=== PATIENT | male | born 1940 | race Caucasian/White ===

== ENCOUNTER → 2018-04-27 13:56 | Outpatient (CLI) | payer MEDICARE, SELFPAY ==
--- NOTE | 2018-04-27 | DI.CT.S_ITS ---
PROCEDURE: CT SINUS SCREEN WO CON INDICATIONS: Anosmia CHRONIC SINUSITIS TECHNIQUE: Noncontrast 3.0 mm axial images acquired from the frontal sinuses to the mid-sella, with coronal and sagittal reformats. For radiation dose reduction, the following was used: automated exposure control, adjustment of mA and/or kV according to patient size. COMPARISON: None. FINDINGS: Image quality: Excellent. Maxillary Sinuses: No bony remodeling or destruction. Sinuses are clear. Ethmoid Air Cells: No bony remodeling or destruction. Sinuses are clear. Sphenoid Sinuses: No bony remodeling or destruction. Sinuses are clear. Frontal Sinuses: No bony remodeling or destruction. Sinuses are clear. Ostiomeatal Complexes: Ostiomeatal complexes are patent. No Yasemin cells. Miscellaneous: Visualized intra-orbital contents are normal. No parmjit bullosa or paradoxical turbinate curvature. No nasal septal deviation. IMPRESSION: No sign of abnormal mucosal thickening or air-fluid levels throughout the maxillary sinuses, the ethmoid air cells, frontal sinuses, and the sphenoid sinus. The mastoid air cells are well-visualized and appear normal. Dictated by: Miller Lizarraga M.D. on 04/27/2018 at 14:47 Approved by: Miller Lizarraga M.D. on 04/27/2018 at 14:48
== END ==
PROVIDERS: PCP Physician Assistant; Visit Provider Otolaryngology
DX: R43.0 Anosmia (principal); J32.9 Chronic sinusitis, unspecified
CPT/HCPCS: 70486

== ENCOUNTER → 2018-10-14 14:21 | Outpatient (CLI) | payer MEDICARE, SELFPAY ==
[2018-10-14 14:57] LABS: Add Manual Diff / Slide Review NO; Basophils Absolute Auto 100 /uL (0-100); Eosinophils Absolute Auto 100 /uL (0-450); Eosinophils Percent Auto 1.3 % (2-4); Hematocrit 43.4 % (41-53); Hemoglobin 14.5 g/dL (13.5-17.5); Lymphocytes Absolute Auto 1900 /uL (1100-4500); Lymphocytes Percent Auto 31.8 % (25-40); Mean Corpuscular HGB Conc 33.3 % (30-36); Mean Corpuscular Hemoglobin 32.5 PG (26-34); Mean Corpuscular Volume 97.5 fL (80-100); Monocytes Absolute Auto 500 /uL (0-900); Monocytes Percent Auto 7.9 % (3-14); Neutrophils Absolute Auto 3500 /uL (1500-7000); Platelet Count 203 X10^3/uL (150-400); Red Blood Cell Count 4.46 X10^6/uL (4.5-5.9); Red Cell Distribution Width 13.5 % (11.6-14.8); White Blood Cell Count 6.1 X10^3/uL (4.5-11.0)
[2018-10-14 15:08] LABS: Alanine Aminotransferase 34 IU/L (21-72); Albumin 4.3 g/dL (3.5-5.0); Albumin Globulin Ratio 1.5 (1.0-2.8); Alkaline Phosphatase 58 U/L (38-126); Aspartate Aminotransferase 19 IU/L (17-59); Bilirubin Total 0.5 mg/dL (0.2-1.3); Blood Urea Nitrogen 24 mg/dL (9-20); Calcium 9.6 mg/dL (8.4-10.2); Carbon Dioxide 22 mmol/L (22-32); Chloride 109 mmol/L (98-107); Cholesterol 154 mg/dL (140-199); Estimated Glomerular Filt Rate > 60.0 mL/min (>60); Globulin 2.9 g/dL (1.7-4.1); Glucose 82 mg/dL (80-110); HDL Cholesterol 36 mg/dL (40-60); HEMOLYSIS 21 (0-50); LDL Cholesterol Calculated 105 mg/dL (<100); Potassium 4.8 mmol/L (3.4-5.1); Sodium 140 mmol/L (137-145); Total Protein 7.2 g/dL (6.3-8.2); Triglycerides 63 mg/dL (35-150)
[2018-10-14 15:40] LABS: Thyroid Stimulating Hormone 0.15 uIU/mL (0.47-4.68)
== END ==
PROVIDERS: PCP Physician Assistant; Visit Provider Physician Assistant
DX: E03.9 Hypothyroidism, unspecified (principal); E78.5 Hyperlipidemia, unspecified
CPT/HCPCS: 36415; 80053; 80061; 84443; 85025

== ENCOUNTER → 2018-12-16 09:27 | Outpatient (CLI) | payer MEDICARE, SELFPAY ==
[2018-12-16 11:38] LABS: Thyroid Stimulating Hormone 2.86 uIU/mL (0.47-4.68)
== END ==
PROVIDERS: PCP Physician Assistant; Visit Provider Physician Assistant
DX: E03.9 Hypothyroidism, unspecified (principal)
CPT/HCPCS: 36415; 84443

== ENCOUNTER → 2019-01-17 11:44 | Outpatient (CLI) | payer MEDICARE, SELFPAY ==
--- NOTE | 2019-01-17 | DI.US.S_ITS ---
PROCEDURE: US ABDOMEN COMPLETE INDICATIONS: Elevated liver function tests. TECHNIQUE: Real-time scanning was performed of the abdominal and retroperitoneal organs, with image documentation. COMPARISON: None. FINDINGS: Liver: Liver is normal in size and homogeneous in echotexture. Gallbladder: The gallbladder appears normal. Biliary ducts: Intrahepatic bile ducts are non-dilated. Extrahepatic bile duct caliber measures 11.1 mm. Normal is 6-7 mm or less in diameter, or 10 mm or less post-cholecystectomy. Pancreas: Visualized portions of the pancreas are sonographically normal. Spleen: Spleen is normal in size and homogeneous in echotexture. Kidneys: Kidneys are normal in size and echotexture. Right kidney measures 10.6 cm long; left kidney measures 11.4 cm long. No hydronephrosis or nephrolithiasis. No solid masses. Aorta: Visualized aorta is normal in caliber at less than 3 cm. Iliacs: Proximal common iliac arteries are normal in caliber at less than 2.5 cm. IVC: Intrahepatic inferior vena cava is patent. Miscellaneous: No free abdominal fluid. IMPRESSION: Abnormal distention of the common bile duct at 11.1 mm, etiology uncertain. A calculus within the gallbladder lumen is not found and it is possible that a distal common bile duct calculus is present which generally would not be accurately detected by ultrasound. Followup by MR cholangiogram may be warranted to more accurately assess the distal common duct area. Dictated by: Miller Lizarraga M.D. on 01/17/2019 at 15:07 Approved by: Miller Lizarraga M.D. on 01/17/2019 at 15:11
[2019-01-17 12:38] LABS: Add Manual Diff / Slide Review NO; Basophils Absolute Auto 100 /uL (0-100); Basophils Percent Auto 0.8 % (0-2); Eosinophils Absolute Auto 100 /uL (0-450); Eosinophils Percent Auto 1.9 % (2-4); Hematocrit 41.5 % (41-53); Hemoglobin 14.1 g/dL (13.5-17.5); Lymphocytes Absolute Auto 1500 /uL (1100-4500); Lymphocytes Percent Auto 21.9 % (25-40); Mean Corpuscular HGB Conc 33.9 % (30-36); Mean Corpuscular Volume 97.5 fL (80-100); Monocytes Absolute Auto 500 /uL (0-900); Neutrophils Absolute Auto 4600 /uL (1500-7000); Neutrophils Percent Auto 67.4 % (50-75); Platelet Count 242 X10^3/uL (150-400); Red Blood Cell Count 4.26 X10^6/uL (4.5-5.9); White Blood Cell Count 6.9 X10^3/uL (4.5-11.0)
[2019-01-17 14:59] LABS: Acetaminophen < 10 ug/mL (10-30); Alanine Aminotransferase 565 IU/L (21-72); Albumin 4.2 g/dL (3.5-5.0); Albumin Globulin Ratio 1.5 (1.0-2.8); Alkaline Phosphatase 539 U/L (38-126); Amylase 48 U/L (30-110); Aspartate Aminotransferase 262 IU/L (17-59); BUN Creatinine Ratio 22.2 (6-22); Bilirubin Total 3.1 mg/dL (0.2-1.3); Blood Urea Nitrogen 20 mg/dL (9-20); Calcium 9.5 mg/dL (8.4-10.2); Carbon Dioxide 24 mmol/L (22-32); Chloride 104 mmol/L (98-107); Estimated Glomerular Filt Rate > 60.0 mL/min (>60); Gamma Glutamyl Transpeptidase 715 U/L (15-73); Globulin 2.8 g/dL (1.7-4.1); Glucose 101 mg/dL (80-110); HEMOLYSIS < 15 (0-50); Lipase 344 U/L (23-300); Potassium 4.6 mmol/L (3.4-5.1); Sodium 138 mmol/L (137-145)
[2019-01-17 15:57] LABS: Hep C Virus Ab w/Reflex Quant NEGATIVE s/c (NEGATIVE)
[2019-01-19 14:34] LABS: Hepatitis A Ab Total Nonreactive (Nonreactive)
== END ==
PROVIDERS: PCP Physician Assistant; Visit Provider Physician Assistant
DX: R94.5 Abnormal results of liver function studies (principal); R53.83 Other fatigue; R82.998 Other abnormal findings in urine; K83.8 Other specified diseases of biliary tract
CPT/HCPCS: 36415; 76700; 80053; 80329; 82150; 82977; 83690; 85025; 86803; 87522; G0480

== ENCOUNTER → 2019-01-20 14:04 | Outpatient (CLI) | payer MEDICARE, SELFPAY ==
--- NOTE | 2019-01-20 | DI.MRI.S_ITS ---
PROCEDURE: MR ABDOMEN WO CON INDICATIONS: ELEVATED LFT'S/DILATION OF COMMON BILE DUCTS TECHNIQUE: Coronal HASTE through the abdomen, axial 2-D FLASH in- and [id number], and breath-hold T2 FSE with fat saturation through the biliary system and pancreas. Oblique coronal and axial thin-slice HASTE, radial thick-slab HASTE centered on the extrahepatic bile ducts. Intravenous secretin: Not requested. COMPARISON: [facility], US, US ABDOMEN COMPLETE, 01/17/2019, 12:51. FINDINGS: Image quality: Excellent. Pancreas and biliary system: Intra- and extra-hepatic biliary ducts are dilated and the gallbladder is proportionately prominent in size as was seen during prior ultrasound scanning measuring up to 10.6 cm in length. The intrahepatic ducts are only mildly dilated and the common hepatic duct measures up to 1.4 cm. In contrast to the appearance during ultrasound scanning 01/17/19 the pancreas is definitely abnormal in morphology, but without adjacent soft tissue edema. Pancreatic duct is abnormal in caliber, measuring up to 9 mm in transverse dimension at the pancreatic neck, and multiple dilated side branches and cystic dilatation of side branches (versus cystic dilatation within the pancreatic parenchyma itself) is noted. This was not identifiable by the prior ultrasound scanning which implies content within the pancreatic duct in these areas of cystic dilatation of side branches or parenchyma containing echogenic material rather than simple fluid. Gallbladder as noted it is seen to be enlarged in overall volume but does not contain identifiable gallstones or evidence of mucosal inflammation or mass. The common duct dilatation extends to the ampulla where the pancreatic duct inserts without calculus or mass identified. Other solid organs: Liver is normal in size. Spleen is normal in size. No adrenal nodules. Both kidneys are normal in size, without hydronephrosis. Nodes and vessels: No retroperitoneal or mesenteric adenopathy by size criteria. Aorta and inferior vena cava are normal in size. Bowel and peritoneum: Unenhanced bowel loops are normal in caliber. No free fluid. Lung bases: No basal pleural effusions. Heart size is normal. Bones and soft tissues: No ventral hernias. Bone marrow is of normal overall signal. IMPRESSION: 1. Mild intrahepatic biliary distention. No hepatic solid mass lesion is found. 2. Prominent common hepatic duct and common bile duct distention, in this patient with gallbladder in place. The gallbladder is elongated as was previously seen by ultrasound measuring up to 10.6 cm in length. A gallstone or common duct stone is not found. 3. There is prominent abnormality involving the pancreas where the pancreatic parenchyma is largely atrophic and there is dilatation of the pancreatic duct and what appears to be side branches of the main pancreatic duct are also dilated with cystic distortion and pancreatic parenchymal cysts may also be superimposed. Of interest the cystic distortion discussed above is not identified by ultrasound scanning only several days ago which implies that the internal content producing this appearance by MR scanning is echogenic in nature. Intraductal papillary mucinous neoplasm may explain this constellation of findings. Gastroenterology consultation is recommended. Retrograde cholangiogram and pancreatic ductography likely will become necessary. 4. A pancreatic or biliary ductal mass or calculus is not seen. Dictated by: Miller Lizarraga M.D. on 01/21/2019 at 8:41 Approved by: Miller Lizarraga M.D. on 01/21/2019 at 9:11
== END ==
PROVIDERS: Family Provider Physician Assistant; PCP Physician Assistant; Visit Provider Physician Assistant
DX: R79.89 Other specified abnormal findings of blood chemistry (principal); K83.8 Other specified diseases of biliary tract; K86.89 Other specified diseases of pancreas
CPT/HCPCS: 74181

== ENCOUNTER → 2019-05-24 10:14 | Outpatient (CLI) | payer MEDICARE, SELFPAY ==
[2019-05-24 10:56] LABS: Add Manual Diff / Slide Review NO; Basophils Absolute Auto 100 /uL (0-100); Basophils Percent Auto 1.1 % (0-2); Eosinophils Absolute Auto 100 /uL (0-450); Eosinophils Percent Auto 1.6 % (2-4); Hematocrit 39.3 % (41-53); Hemoglobin 13.4 g/dL (13.5-17.5); Lymphocytes Absolute Auto 1900 /uL (1100-4500); Lymphocytes Percent Auto 34.8 % (25-40); Mean Corpuscular HGB Conc 34.2 % (30-36); Mean Corpuscular Hemoglobin 33.2 PG (26-34); Mean Corpuscular Volume 97.2 fL (80-100); Monocytes Absolute Auto 400 /uL (0-900); Neutrophils Absolute Auto 3000 /uL (1500-7000); Neutrophils Percent Auto 55.5 % (50-75); Platelet Count 246 X10^3/uL (150-400); Red Blood Cell Count 4.04 X10^6/uL (4.5-5.9); Red Cell Distribution Width 12.5 % (11.6-14.8); White Blood Cell Count 5.3 X10^3/uL (4.5-11.0)
[2019-05-24 11:06] LABS: Alanine Aminotransferase 20 IU/L (21-72); Albumin Globulin Ratio 1.3 (1.0-2.8); Alkaline Phosphatase 73 U/L (38-126); Aspartate Aminotransferase 19 IU/L (17-59); BUN Creatinine Ratio 24.4 (6-22); Bilirubin Total 0.6 mg/dL (0.2-1.3); Blood Urea Nitrogen 22 mg/dL (9-20); Calcium 9.5 mg/dL (8.4-10.2); Carbon Dioxide 28 mmol/L (22-32); Chloride 103 mmol/L (98-107); Estimated Glomerular Filt Rate > 60.0 mL/min (>60); Glucose 105 mg/dL (80-110); HEMOLYSIS < 15 (0-50); Potassium 4.6 mmol/L (3.4-5.1); Sodium 139 mmol/L (137-145)
[2019-05-24 11:31] LABS: TSH w/ Reflex to FT4 1.75 uIU/mL (0.47-4.68)
[2019-05-24 11:41] LABS: Vitamin D 25 Hydroxy (D3) 43.7 ng/mL (30.0-100.0)
[2019-05-24 12:07] LABS: Folate 14.3 ng/mL (2.76-20.0); Vitamin B12 650 pg/mL (239-931)
== END ==
PROVIDERS: PCP Physician Assistant; Visit Provider Physician Assistant
DX: N40.1 Benign prostatic hyperplasia with lower urinary tract symptoms (principal); E03.9 Hypothyroidism, unspecified; E78.2 Mixed hyperlipidemia; K83.8 Other specified diseases of biliary tract
CPT/HCPCS: 36415; 80053; 82306; 82607; 82746; 84443; 85025

== ENCOUNTER → 2019-05-24 10:32 | Outpatient (CLI) | payer MEDICARE, SELFPAY ==
--- NOTE | 2019-05-24 | DI.RAD.S_ITS ---
PROCEDURE: XR RIBS BI 3V INDICATIONS: ABNORMAL PROMINENCE OF RIB TECHNIQUE: 4 views of the bilateral ribs were acquired. COMPARISON: None. FINDINGS: Surgical changes and devices: A biliary stent is noted.. Bones and chest wall: No fractures or dislocations. No suspicious bony lesions. Overlying soft tissues appear unremarkable. Lungs and pleura: The visualized lung appears clear. No pleural effusions or pneumothorax are visible. IMPRESSION: No gross displaced rib fracture or discrete rib lesion is seen. Dictated by: Gurmeet Tapia M.D. on 05/24/2019 at 12:48 Approved by: Gurmeet Tapia M.D. on 05/24/2019 at 12:49
== END ==
PROVIDERS: PCP Physician Assistant; Visit Provider Physician Assistant
DX: Q76.6 Other congenital malformations of ribs (principal)
CPT/HCPCS: 71110

== ENCOUNTER → 2019-10-25 19:47 | Outpatient (ROUT) | payer MEDICARE, SELFPAY ==
[2019-10-25 19:57] LABS: Add Manual Diff / Slide Review NO; Basophils Absolute Auto 0 /uL (0-100); Basophils Percent Auto 0.9 % (0-2); Eosinophils Absolute Auto 100 /uL (0-450); Eosinophils Percent Auto 1.9 % (2-4); Hematocrit 39.9 % (41-53); Hemoglobin 13.6 g/dL (13.5-17.5); Lymphocytes Absolute Auto 1800 /uL (1100-4500); Lymphocytes Percent Auto 36.2 % (25-40); Mean Corpuscular HGB Conc 34.1 % (30-36); Mean Corpuscular Hemoglobin 33.3 PG (26-34); Mean Corpuscular Volume 97.7 fL (80-100); Monocytes Absolute Auto 400 /uL (0-900); Monocytes Percent Auto 7.6 % (3-14); Neutrophils Absolute Auto 2700 /uL (1500-7000); Neutrophils Percent Auto 53.4 % (50-75); Platelet Count 199 X10^3/uL (150-400); Red Blood Cell Count 4.08 X10^6/uL (4.5-5.9)
[2019-10-25 20:08] LABS: Alanine Aminotransferase 16 IU/L (<50); Albumin Globulin Ratio 1.3 (1.0-2.8); Alkaline Phosphatase 73 U/L (38-126); Aspartate Aminotransferase 19 IU/L (17-59); BUN Creatinine Ratio 18.9 (6-22); Bilirubin Total 0.6 mg/dL (0.2-1.3); Blood Urea Nitrogen 17 mg/dL (9-20); Calcium 9.5 mg/dL (8.4-10.2); Carbon Dioxide 29 mmol/L (22-32); Chloride 103 mmol/L (98-107); Estimated Glomerular Filt Rate > 60.0 mL/min (>60); Globulin 3.1 g/dL (1.7-4.1); Glucose 105 mg/dL (80-110); HEMOLYSIS < 15 (0-50); Potassium 4.2 mmol/L (3.4-5.1); Sodium 139 mmol/L (137-145); Total Protein 7.1 g/dL (6.3-8.2)
[2019-10-25 20:21] LABS: Vitamin D 25 Hydroxy (D3) 47.5 ng/mL (30.0-100.0)
[2019-10-25 20:36] LABS: TSH w/ Reflex to FT4 2.89 uIU/mL (0.47-4.68)
== END ==
PROVIDERS: Visit Provider Physician Assistant
DX: E03.9 Hypothyroidism, unspecified (principal); E78.2 Mixed hyperlipidemia; E55.9 Vitamin D deficiency, unspecified
CPT/HCPCS: 80053; 82306; 84443; 85025

== ENCOUNTER → 2020-06-12 10:20 | Outpatient (CLI) | payer MEDICARE, SELFPAY ==
[2020-06-12 11:36] LABS: Add Manual Diff / Slide Review NO; Basophils Absolute Auto 0 /uL (0-100); Basophils Percent Auto 0.4 % (0-2); Eosinophils Absolute Auto 100 /uL (0-450); Eosinophils Percent Auto 2.8 % (2-4); Hematocrit 37.7 % (41-53); Hemoglobin 12.8 g/dL (13.5-17.5); Lymphocytes Absolute Auto 1200 /uL (1100-4500); Lymphocytes Percent Auto 29.8 % (25-40); Mean Corpuscular HGB Conc 33.8 % (30-36); Mean Corpuscular Hemoglobin 33.5 PG (26-34); Monocytes Absolute Auto 500 /uL (0-900); Monocytes Percent Auto 12.2 % (3-14); Neutrophils Absolute Auto 2200 /uL (1500-7000); Neutrophils Percent Auto 54.8 % (50-75); Platelet Count 241 X10^3/uL (150-400); Red Blood Cell Count 3.81 X10^6/uL (4.5-5.9); Red Cell Distribution Width 13.1 % (11.6-14.8); White Blood Cell Count 4.1 X10^3/uL (4.5-11.0)
[2020-06-12 12:03] LABS: Alanine Aminotransferase 379 IU/L (<50); Albumin 3.5 g/dL (3.5-5.0); Albumin Globulin Ratio 1.1 (1.0-2.8); Alkaline Phosphatase 495 U/L (38-126); Aspartate Aminotransferase 196 IU/L (17-59); BUN Creatinine Ratio 18.5 (6-22); Bilirubin Total 5.2 mg/dL (0.2-1.3); Blood Urea Nitrogen 17 mg/dL (9-20); Calcium 9.4 mg/dL (8.4-10.2); Carbon Dioxide 28 mmol/L (22-32); Chloride 102 mmol/L (98-107); Estimated Glomerular Filt Rate > 60.0 mL/min (>60); Globulin 3.2 g/dL (1.7-4.1); Glucose 103 mg/dL (80-110); HEMOLYSIS < 15 (0-50); Potassium 4.7 mmol/L (3.4-5.1); Sodium 137 mmol/L (137-145); Total Protein 6.7 g/dL (6.3-8.2)
[2020-06-13 07:56] LABS: Cancer (Carbohydrate) Ag 19-9 178 U/mL (0-35)
== END ==
PROVIDERS: PCP Physician Assistant; Referring Provider Internal Medicine Gastroenterology; Visit Provider Internal Medicine Gastroenterology
DX: K86.2 Cyst of pancreas (principal); K83.1 Obstruction of bile duct
CPT/HCPCS: 36415; 80053; 85025; 86301

== ENCOUNTER → 2020-07-06 12:37 | Outpatient (CLI) | payer MEDICARE, SELFPAY ==
[2020-07-06 14:01] LABS: Alanine Aminotransferase 85 IU/L (<50); Albumin 3.4 g/dL (3.5-5.0); Alkaline Phosphatase 400 U/L (38-126); Aspartate Aminotransferase 69 IU/L (17-59); BUN Creatinine Ratio 22.4 (6-22); Bilirubin Total 6.9 mg/dL (0.2-1.3); Blood Urea Nitrogen 19 mg/dL (9-20); Calcium 9.3 mg/dL (8.4-10.2); Carbon Dioxide 24 mmol/L (22-32); Chloride 100 mmol/L (98-107); Estimated Glomerular Filt Rate > 60.0 mL/min (>60); Globulin 3.3 g/dL (1.7-4.1); Glucose 98 mg/dL (80-110); HEMOLYSIS < 15 (0-50); Potassium 4.3 mmol/L (3.4-5.1); Sodium 133 mmol/L (137-145); Total Protein 6.7 g/dL (6.3-8.2)
== END ==
PROVIDERS: PCP Physician Assistant; Referring Provider Internal Medicine Gastroenterology; Visit Provider Internal Medicine Gastroenterology
DX: K86.2 Cyst of pancreas (principal); K83.1 Obstruction of bile duct
CPT/HCPCS: 36415; 80053

== ENCOUNTER → 2021-01-02 12:01 | Outpatient (CLI) | payer OTHER, SELFPAY ==
[2021-01-02 13:17] LABS: COVID19 -Nasal RAPID Negative (Negative)
== END ==
PROVIDERS: PCP Physician Assistant; Visit Provider Surgery
DX: Z20.822 Contact with and (suspected) exposure to COVID-19 (principal); C24.1 Malignant neoplasm of ampulla of Vater; R63.4 Abnormal weight loss
CPT/HCPCS: 87635; 99214; C9803

== ENCOUNTER 2021-01-03 11:34 | Day surgery (SDC) | payer OTHER, SELFPAY ==
[2021-01-03] VITALS (8 sets, daily range): BP systolic 98–161; BP diastolic 54–77; PULSE 66–76; RESP 12–18; TEMP 36.1–36.7; O2SAT 97–100; BMI 22.8
--- NOTE | 2021-01-03 | DI.RAD.S_ITS ---
PROCEDURE: XR CHEST 1V INDICATIONS: post op port placement TECHNIQUE: One view of the chest was acquired. COMPARISON: [facility], , CHEST 1 VIEW, 10/12/2016, 9:45. FINDINGS: Surgical changes and devices: There is a Port-A-Cath on the right with the tip in the right atrium.. Lungs and pleura: Left basilar opacity may be infiltrate or atelectasis. No pleural effusions or pneumothorax. Mediastinum: Mediastinal contours appear normal. Heart size is normal. Bones and chest wall: No suspicious bony lesions. Overlying soft tissues appear unremarkable. IMPRESSION: Tip of the Port-A-Cath is in the right atrium. No pneumothorax. Dictated by: Brenda Alonso M.D. on 01/03/2021 at 13:52 Approved by: Brenda Alonso M.D. on 01/03/2021 at 13:55
[2021-01-03] MEDS: LACTATED RINGERS 1,000 ML 42 ML IV (11:59)
--- NOTE | 2021-01-03 12:01 | PM.PREOP ---
Pre-operative Note COVID-19 COVID-19 status: Negative Result date/Date tested (Pos, Neg/Pending): 01/02/21 Interval Note History & Physical reviewed/Exam performed by Physician: Yes Changes to H&P: No
--- NOTE | 2021-01-03 12:19 | P.OP_ITS ---
Operative Date/Time/Diagnoses Date of procedure: 01/03/21 Time of procedure: 12:19 Pre-op diagnosis: Ampullary adenocarcinoma, in need of chemotherapy Post-op diagnosis: same Procedure & Clinicians Procedure: Portacath placement right IJ with US and fluoroscopy guidance Same procedure as scheduled: Yes Indications: Ampullary adenocarcinoma s/p whipple surgery; in need of portacath for chemotherapy Surgeon: Emani Dejesus Click Yes if Unassisted: Yes Anesthesia Type: General Operative Notes Findings: Good positioning per US and fluoro guidance and confirmation Specimen(s): none sent Prosthetic devices, grafts, tissues, transplants, or devices: BARD slim portacath Estimated Blood Loss (mL): 5 Blood products transfused: none Procedure in detail: Patient was placed supine on the operating room table and underwent general LMA anesthesia. The neck and chest were prepped and draped in the usual sterile fashion. The patient was positioned in Trendelenburg, and local anesthetic was infiltrated beneath the skin overlying the right IJ. The right neck was examined with ultrasound, and an appropriate position on the internal jugular vein was identified. The right IJ was accessed with a large- bore needle and syringe using simultaneous ultrasound guidance. Dark blood returned indicating venous access, and the guidewire was passed through the needle. Fluoroscopy was used to identify the position of the guidewire, which appeared appropriate. A 3 cm transverse incision was then made in the skin on the right chest wall and a 2 cm x 2 cm pocket was created inferior to the incision. The port was put together and flushed with heparinized saline. It was positioned in the pocket, and the tunneler was used to tunnel the catheter up to the jugular vein. A skin incision was made over top of the guide wire, and the dilator and introducer sheath were passed over the wire using fluoro guidance. The wire and dilator were then removed and the sheath was left in place. The catheter was cut to the appropriate length after evaluating its length using fluoro with the catheter position on the patient's chest. Once it was tapered to appropriate length the catheter was passed through the introducer and then the sheath was peeled away. Again using fluoro guidance, the catheter tip appeared to be in good position within the superior vena cava at the cavoatrial junction. The port was fixed to the chest wall using 3 0 silk suture. The skin was closed with 3 0 Vicryl and 4 0 Monocryl, and the skin incisions were sealed with Dermabond. This concluded the procedure and the patient was awakened from anesthesia and t ransferred to the postanesthesia care unit in stable condition. Needle sponge and instrument counts were correct x2 at the end of the case. The patient tolerated the procedure well and was transferred to the PACU in stable condition. In the PACU of follow-up chest x-ray was done which showed no pneumothorax and good positioning of the catheter. The Port-A-Cath was accessed through the skin using a Phan needle and was found to flush well and draw back blood. It was flushed with 5cc of heparinized saline. Complications: none Post-operative Condition: stable Disposition: PACU
[2021-01-03] MEDS: CEFAZOLIN 2 GM/100 ML FROZ.PIGGY IV (12:29)
--- NOTE | 2021-01-03 12:44 | SUR.OPER ---
Supine on padded OR bed, head on pillow, arms padded and tucked at sides, legs uncrossed, safety belt at thigh, tape over blanket over lower legs .
[2021-01-03] MEDS: HEPARIN 5,000 UNIT, SODIUM CHLORIDE 0.9% 50 ML IV (13:00)
[2021-01-03] MEDS: BUPIVACAINE 0.25% W/ EPI 30 ML VIAL INJ (13:00)
[2021-01-03] MEDS: SODIUM CHLORIDE 0.9% FLUSH 10 ML IV (13:02)
--- NOTE | 2021-01-03 14:00 | SUR.PHASEI ---
Pt received to PACU after general anesthesia. Airway patent, self maintained. Report from Dr Funmi RN.
== END 2021-01-03 14:15 | disposition home or self-care (01) ==
PROVIDERS: PCP Physician Assistant; Referring Provider Physician Assistant; Visit Provider Surgery
PROC: (CPT 36561; principal; 2021-01-03 12:45)
DX: C24.1 Malignant neoplasm of ampulla of Vater (principal); G47.33 Obstructive sleep apnea (adult) (pediatric); N40.0 Benign prostatic hyperplasia without lower urinary tract symptoms; E03.9 Hypothyroidism, unspecified
CPT/HCPCS: 36561; 71045; C1788; J0690; J1644; J2250; J2704; J3010

== ENCOUNTER → 2021-03-08 10:55 | Outpatient (CLI) | payer OTHER, SELFPAY ==
--- NOTE | 2021-03-08 11:51 | DI.CT.S_ITS ---
PROCEDURE: CT CHEST ABD PEL W CON INDICATIONS: duodenum cancer of the vater TECHNIQUE: After the administration of oral and intravenous contrast, axial sections acquired from the supraclavicular neck to the pubic symphysis. Coronal and sagittal reformats were performed. For radiation dose reduction, the following was used: automated exposure control, adjustment of mA and/or kV according to patient size. COMPARISON:Outside Facility, RG, CT THORAX/ABDOMEN/PELVIS WITH CONTRAST, 10/19/2019, 10:24. Outside Facility, RG, CT THORAX/ ABD/ PELVIS WITH CONTRAST, 07/21/2019, 15:51. Outside Facility, RG, CT THORAX/ ABD/ PELVIS WITH CONTRAST, 08/16/2020, 15:25. Outside Facility, RG, CT THORAX/ABDOMEN/PELVIS WITH CONTRAST, 07/07/2020, 10:52. FINDINGS: Image quality: Excellent. CHEST: Lower Neck: No enlarged lymph nodes. Thyroid: Within normal limits. Axillae: No enlarged lymph nodes. Chest Wall: Unremarkable. Lungs and Airways: A 6 mm nodule with central lucency is noted in the left lower lobe (series 3, image 250), unchanged in size. Pleura: No pneumothorax or pleural effusions. Heart: Heart size is normal. Mild coronary artery calcification. No pericardial effusion. Thoracic Vessels: Ascending thoracic aortic aneurysm measuring 4.5 cm. The pulmonary arteries demonstrate normal size. Mediastinum and Sherry: No enlarged lymph nodes. Esophagus: No wall thickening. No hiatal hernia. ABDOMEN: Liver: Attic steatosis. Gallbladder: Surgically absent Biliary ducts: Unremarkable. Pancreas: Multilocular cystic changes in the head neck and body of pancreas, slightly decreased in size. Spleen: Normal in size. Calcified granulomas in spleen. Adrenal Glands: Unremarkable. Kidneys and Ureters: Unremarkable. Stomach and Bowel: There is a needle-like hyperdensity within the gastric lumen. Proximal duodenum is surgically resected. There is gastrojejunal anastomosis. There is irregular wall thickening in the medial wall of the gastric cardia. Circumferential thickening is seen in a short segment of small bowel (probably jejunum or remanent duodenum) in the upper abdomen right of midline just anterior and right of the inferior vena cava (series 2, image 74). Small bowel and colon loops are normal in caliber. There are colonic diverticula in sigmoid colon. Peritoneum: No abnormal intraperitoneal fluid. No free air. Ventral Wall: No hernia. Abdominal Nodes: A 1.2 cm periportal lymph node is seen just behind the proximal main portal vein, unchanged in size. There is a 3.0 x 2.3 cm soft tissue is seen anterior to the portal confluence, which may be an enlarged periportal lymph node or artifact from may loop of unopacified small bowel. Vessels: Aorta and inferior vena cava are normal in size. There is mural irregularity of the superior mesenteric vein concerning for partial thrombosis. PELVIS: Pelvic Organs: Unremarkable. Bladder: Bladder is distended. Prostate is enlarged. Pelvic Nodes: No enlarged lymph nodes. Miscellaneous: No inguinal hernias are seen. Bones: Stable sclerotic focus in the posterior aspect of the right 2nd rib. IMPRESSION: 1. Interval postsurgical changes with resection of duodenum and gastrojejunal anastomosis. There is irregular thickening of the medial wall of the gastric cardia. Cannot rule out tumor infiltration. Recommend endoscopic examination if clinically indicated. Circumferential thickening of a short segment of small bowel loop (probably jejunum or remanent duodenum) in the upper abdomen right of midline just anterior and right of the inferior vena cava (series 2, image 74). 2. There is a needle-like linear metallic foreign body within the stomach lumen. Please correlate clinically. 3. Periportal lymphadenopathy suspicious metastasis. 4. Multilocular cystic changes in the head, neck and body of the pancreas, decreased compared to the last CT. 5. Stable 6 mm lung nodule in the left lower lobe. 6. Mural irregularity of the superior mesenteric vein which may be caused by artifact or secondary to partial thrombosis. The result was discussed with Dr. Hicks. Dictated by: Brenda Alonso M.D. on 03/08/2021 at 18:03 Transcribed by: THELMA on 03/09/2021 at 17:32 Approved by: Brenda Alonso M.D. on 03/11/2021 at 11:03
== END ==
PROVIDERS: PCP Physician Assistant; Referring Provider Internal Medicine Hematology & Oncology; Visit Provider Internal Medicine Hematology & Oncology
DX: C24.1 Malignant neoplasm of ampulla of Vater (principal); R91.1 Solitary pulmonary nodule; Z15.01 Genetic susceptibility to malignant neoplasm of breast; Z15.03 Genetic susceptibility to malignant neoplasm of prostate; Z15.09 Genetic susceptibility to other malignant neoplasm
CPT/HCPCS: 71260; 74177

== ENCOUNTER → 2021-05-14 09:44 | Outpatient (CLI) | payer OTHER, SELFPAY ==
--- NOTE | 2021-05-14 10:47 | DI.CT.S_ITS ---
PROCEDURE: CT CHEST ABD PEL W CON INDICATIONS: cancer of ampulla of vater TECHNIQUE: After the administration of oral and intravenous contrast, axial sections acquired from the supraclavicular neck to the pubic symphysis. Coronal and sagittal reformats were performed. For radiation dose reduction, the following was used: automated exposure control, adjustment of mA and/or kV according to patient size. COMPARISON: [facility], MR, MR ABDOMEN WO CON, 01/20/2019, 14:54. [facility], CT, CT CHEST ABD PEL W CON, 03/08/2021, 12:00. FINDINGS: Image quality: Excellent. CHEST: Lower Neck: No enlarged lymph nodes. Thyroid: Within normal limits. Axillae: No enlarged lymph nodes. Chest Wall: Unremarkable. Lungs and Airways: No consolidation or suspicious nodules. Pleura: No pneumothorax or pleural effusions. Heart: Heart size is normal. No pericardial effusion. Thoracic Vessels: The aorta and pulmonary arteries demonstrate normal size. Mediastinum and Sherry: No enlarged lymph nodes. Esophagus: No wall thickening. No hiatal hernia. ABDOMEN: Liver: Unremarkable. Gallbladder: Absent.. Biliary ducts: Non dilated. Pancreas: The patient carries a history of ampullary carcinoma, and the pancreatic head and neck area appear resected as does the duodenum. There is relative atrophy of the pancreatic parenchyma through the body and tail, and the pancreatic ductal distension previously documented on MR scanning has resolved. No definite mass lesion remains in the operative bed. Spleen: Unremarkable. Adrenal Glands: Unremarkable. Kidneys and Ureters: Unremarkable. Stomach and Bowel: Stomach, small bowel loops, and colon are unremarkable except for generalized [id number] colonic obstipation Peritoneum: No abnormal intraperitoneal fluid. No free air. Ventral Wall: No hernia. Abdominal Nodes: No retroperitoneal or mesenteric adenopathy by size criteria. Vessels: Aorta and inferior vena cava are normal in size. PELVIS: Pelvic Organs: Unremarkable. Bladder: Unremarkable. Pelvic Nodes: No enlarged lymph nodes. Miscellaneous: No inguinal hernias are seen. Bones: Unremarkable. IMPRESSION: 1. Whipple procedure appears to have been performed with resection of the pancreatic head and neck and the duodenum. No recurrent mass or adenopathy is seen. 2. No distant metastatic disease is found. Dictated by: Miller Lizarraga M.D. on 05/14/2021 at 13:33 Approved by: Miller Lizarraga M.D. on 05/14/2021 at 13:46
== END ==
PROVIDERS: PCP Physician Assistant; Referring Provider Internal Medicine Hematology & Oncology; Visit Provider Internal Medicine Hematology & Oncology
DX: C24.1 Malignant neoplasm of ampulla of Vater (principal)
CPT/HCPCS: 71260; 74177; Q9967

== ENCOUNTER → 2021-08-26 12:47 | Outpatient (CLI) | payer OTHER, SELFPAY ==
--- NOTE | 2021-08-26 13:41 | DI.CT.S_ITS ---
PROCEDURE: CT CHEST ABD PEL W CON INDICATIONS: pancreatic cancer TECHNIQUE: After the administration of oral and intravenous contrast, axial sections acquired from the supraclavicular neck to the pubic symphysis. Coronal and sagittal reformats were performed. For radiation dose reduction, the following was used: automated exposure control, adjustment of mA and/or kV according to patient size. COMPARISON: [facility], CT, CT CHEST ABD PEL W CON, 05/14/2021, 10:30. FINDINGS: Image quality: Excellent. CHEST: Lower Neck: No enlarged lymph nodes. Thyroid: Within normal limits. Axillae: No enlarged lymph nodes. Chest Wall: Right chest wall port catheter, tip of which is in the lower SVC. Lungs and Airways: There is a new spiculated nodule within the right upper lobe anteriorly measuring roughly 5 mm diameter. There is new moderate multifocal patchy opacity within the right lower lobe posteriorly. There is a new cavitary nodule within the left lower lobe posteriorly measuring roughly 5 mm diameter. New spiculated nodule within the anterior lingula measuring 10 mm. Pleura: No pneumothorax . Small right pleural effusion. Heart: Heart size is normal. Moderate calcification of the coronary vasculature. No pericardial effusion. Thoracic Vessels: Mild fusiform dilatation of the ascending thoracic aorta, measuring roughly 247 mm, as before. Mediastinum and Sherry: No enlarged lymph nodes. Esophagus: No wall thickening. No hiatal hernia. ABDOMEN: Liver: Unremarkable. Gallbladder: Surgically absent Biliary ducts: Unremarkable. Pancreas: Status post Whipple procedure. Pancreatic atrophy and pancreatic ductal dilatation is present, as before. There is limited evaluation of the pancreatic neck secondary to multiple adjacent unopacified small bowel loops. Spleen: Multiple calcifications within the spleen are present. Adrenal Glands: Unremarkable. Kidneys and Ureters: Unremarkable. Stomach and Bowel: Stomach, small bowel loops, and colon are unremarkable. Peritoneum: No abnormal intraperitoneal fluid. No free air. Ventral Wall: No hernia. Abdominal Nodes: No retroperitoneal or mesenteric adenopathy by size criteria. Vessels: Aorta and inferior vena cava are normal in size. PELVIS: Pelvic Organs: Prostate is enlarged. Bladder: Unremarkable. Pelvic Nodes: No enlarged lymph nodes. Miscellaneous: No inguinal hernias are seen. Bones: Unremarkable. IMPRESSION: 1. Moderate patchy opacity within the right lung base with small adjacent pleural effusion. Findings are suggestive of pneumonia with small parapneumonic effusion. Continued CT follow-up after appropriate medical therapy for pneumonia, beginning in 1-2 months, is recommended to ensure resolution and exclude underlying malignancy. 2. Spiculated bilateral pulmonary nodules as above. Findings may indicate malignancy. Recommend attention to these regions on follow-up imaging studies as detailed above. 3. Limited evaluation of the pancreatic neck secondary to adjacent unopacified small bowel loops. Pancreatic protocol MRI with and without intravenous contrast may be helpful for further assessment. 4. Coronary artery disease. 5. Aneurysmal dilatation of the thoracic aorta. 6. Prostate enlargement. Recommend correlation with PSA values. Dictated by: Flor Cooper M.D. on 08/26/2021 at 14:47 Approved by: Flor Cooper M.D. on 08/26/2021 at 14:55
== END ==
PROVIDERS: PCP Physician Assistant; Referring Provider Internal Medicine Hematology & Oncology; Visit Provider Internal Medicine Hematology & Oncology
DX: C24.1 Malignant neoplasm of ampulla of Vater (principal); J90 Pleural effusion, not elsewhere classified; R91.8 Other nonspecific abnormal finding of lung field; I25.10 Atherosclerotic heart disease of native coronary artery without angina pectoris; I71.2 Thoracic aortic aneurysm, without rupture; N40.0 Benign prostatic hyperplasia without lower urinary tract symptoms
CPT/HCPCS: 71260; 74177; Q9967

== ENCOUNTER → 2021-10-24 11:55 | Outpatient (CLI) | payer OTHER, SELFPAY ==
--- NOTE | 2021-10-24 11:56 | DI.CT.S_ITS ---
PROCEDURE: CT CHEST ABD PEL W CON INDICATIONS: adenocarcionam vater TECHNIQUE: After the administration of oral and intravenous contrast, axial sections acquired from the supraclavicular neck to the pubic symphysis. Coronal and sagittal reformats were performed. For radiation dose reduction, the following was used: automated exposure control, adjustment of mA and/or kV according to patient size. COMPARISON: [facility], CT, CT CHEST ABD PEL W CON, 05/14/2021, 10:30. [facility], CT, CT CHEST ABD PEL W CON, 03/08/2021, 12:00. [facility], CT, CT CHEST ABD PEL W CON, 08/26/2021, 13:50. FINDINGS: Image quality: Excellent. CHEST: Lower Neck: No enlarged lymph nodes. Thyroid: Within normal limits. Axillae: No enlarged lymph nodes. Chest Wall: Unremarkable. Lungs and Airways: No acute airspace disease. Stable 6 mm ground-glass nodule in the right apex. Previously described anterior right upper lobe spiculated nodule is not visualized on today's study. Previously described multifocal patchy airspace opacities of the posterior right lower lobe have decreased substantially in size with minimal residual streaky in curvilinear densities which may represent scarring and/or atelectasis. No septal thickening or nodularity. Previously described cavitary lesion within the left lower lobe posteriorly is not significantly changed measuring approximately 6 mm in size (image 275/series 3). Previously described 10 mm irregular anterior lingular spiculated nodule is also not visualized on today's study. Otherwise, no new pulmonary nodules or masses. No septal thickening or nodularity. Pleura: No pneumothorax or pleural effusions. Minimal residual pleural thickening of the posteromedial right lung base. Heart: Heart size is normal. No pericardial effusion. Atherosclerotic calcifications of the coronary arteries are again noted. Thoracic Vessels: The pulmonary arteries demonstrate normal size. Atherosclerotic calcifications of the thoracic aorta with stable aneurysmal dilatation of the ascending aorta. Mediastinum and Sherry: No enlarged lymph nodes. Multiple calcifications seen in the mediastinal lymph nodes compatible with prior granulomatous disease. Esophagus: No wall thickening. No hiatal hernia. ABDOMEN: Liver: Unremarkable. Gallbladder: Gallbladder surgically absent. Biliary ducts: No intrahepatic or extrahepatic biliary ductal dilatation identified. . Pancreas: Redemonstration of postsurgical changes of the pancreas with resection of the head neck region. Redemonstration of atrophy of the pancreatic parenchyma. No definite mass; however, suggestion of increased focal hypoattenuation near the proximal margin of the pancreatic body now measuring approximately 1.8 cm (image 32/series 4) versus approximately 1.4 cm previously. This may represent volume averaging artifact versus increased parenchymal atrophy. Focal hypodense mass not excluded. Otherwise, no definite mass identified in the operative bed. Spleen: Multiple scattered splenic calcified granulomas. Adrenal Glands: Unremarkable. Kidneys and Ureters: Unremarkable. Stomach and Bowel: Stable postsurgical changes from previous resection of the duodenum. Persistent moderate colonic obstipation. Stomach, small bowel loops, and colon are otherwise unremarkable. Appearance of the rectal wall. Peritoneum: No abnormal intraperitoneal fluid. No free air. Ventral Wall: No hernia. Abdominal Nodes: No retroperitoneal or mesenteric adenopathy by size criteria. Vessels: Scattered atherosclerotic calcifications of the abdominal aorta and iliac vessels without aneurysmal dilatation. The inferior vena cava appears patent. PELVIS: Pelvic Organs: Prostatomegaly. Bladder: Moderate distension of the urinary bladder. Pelvic Nodes: No enlarged lymph nodes. Miscellaneous: No inguinal hernias are seen. Bones: No acute vertebral body compression fractures. Multilevel spondylitic changes throughout the imaged spine. No suspicious osseous lesions. IMPRESSION: 1. Stable postsurgical changes of the periportal region compatible with previous Whipple's procedure. No suspicious masses noted in the surgical bed. There is possible interval increase in focal hypodensity involving the proximal aspect of the pancreatic body now measuring approximately 1.8 cm versus 1.4 previously. This may represent volume averaging artifact secondary to interval increase in parenchymal atrophy and prominent pancreatic duct. However, a possible parenchymal lesion not excluded. Consider further evaluation with pancreatic mass protocol CT or MRI. 2. Previously described spiculated/irregular pulmonary nodules in the anterior lingula and anterior right upper lobe have resolved and likely represent an inflammatory or infectious process. Otherwise, no new pulmonary nodules or masses. 3. Previously described patchy ill-defined airspace opacities of the posterior right lower lobe have decreased substantially in size and conspicuity and also likely represents resolving infectious or inflammatory process. 4. Atherosclerotic vascular disease. 5. Stable aneurysmal dilatation of the thoracic aorta. 6. Prostatomegaly. Dictated by: David Reynaga M.D. on 10/24/2021 at 20:52 Approved by: David Reynaga M.D. on 10/24/2021 at 21:28
== END ==
PROVIDERS: PCP Physician Assistant; Referring Provider Internal Medicine Hematology & Oncology; Visit Provider Internal Medicine Hematology & Oncology
DX: C24.1 Malignant neoplasm of ampulla of Vater (principal); R91.8 Other nonspecific abnormal finding of lung field
CPT/HCPCS: 71260; 74177; Q9967

== ENCOUNTER → 2021-11-13 12:23 | Outpatient (CLI) | payer OTHER, SELFPAY ==
--- NOTE | 2021-11-13 | DI.CT.S_ITS ---
PROCEDURE: CT ABDOMEN W CON INDICATIONS: Adenocarcinoma of ampulla of Vater. Follow up to prior CT TECHNIQUE: After the administration of intravenous contrast, axial sections were acquired from the lung bases to the iliac crests during the late arterial and venous phases. Coronal and sagittal reformats were performed. For radiation dose reduction, the following was used: automated exposure control, adjustment of mA and/or kV according to patient size. COMPARISON:[facility], RG, CT THORAX/ ABD/ PELVIS WITH CONTRAST, 08/16/2020, 15:25. [facility], RG, CT THORAX W/O CONTRAST, 02/25/2019, 10:04. Outside [facility], RG, CT THORAX/ ABD/ PELVIS WITH CONTRAST, 07/21/2019, 15:51. [facility], CT, CT CHEST ABD PEL W CON, 03/08/2021, 12:00. [facility], CT, CT CHEST ABD PEL W CON, 05/14/2021, 10:30. [facility], CT, CT CHEST ABD PEL W CON, 08/26/2021, 13:50. [facility], CT, CT CHEST ABD PEL W CON, 10/24/2021, 13:23. FINDINGS: Image quality: Excellent. Lung bases: A small left lower lobe pulmonary nodule measuring 0.4 cm on series 8, image 4 appears stable in size compared to the prior studies. There is mild scarring redemonstrated in the lung bases. Heart: Heart is normal in size. There is a small hiatal hernia. ABDOMEN: Liver: No hepatic mass identified. Gallbladder: Surgically absent. Biliary ducts: No intra or extrahepatic biliary ductal dilatation. Pancreas: There are postsurgical changes consistent with prior Whipple resection redemonstrated. The remnant pancreas demonstrates moderate diffuse atrophy. 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 These are similar in size to the recent prior studies and decreased from the preoperative studies. No definite discrete new suspicious solid mass identified. Spleen: Normal in size. Multiple calcifications are redemonstrated consistent with sequelae of old granulomas disease. Adrenal Glands: Unremarkable. Kidneys and Ureters: Unremarkable. Stomach and Bowel: Postsurgical changes are demonstrated consistent with prior Whipple procedure. There is mild segmental small bowel wall thickening of the jejunum extending from the gastrojejunal anastomosis. Remaining loops of visualized bowel normal in caliber and wall thickness. Peritoneum: No abnormal intraperitoneal fluid. No free air. There is nonspecific mild fat stranding in the mesentery again noted. Ventral Wall: No hernia. Abdominal Nodes: No retroperitoneal or mesenteric adenopathy by size criteria. Vessels: Aorta and inferior vena cava are normal in size. Bones: Visualized osseous structures demonstrate no suspicious focal lesions. IMPRESSION: 1. Postsurgical changes redemonstrated consistent with prior Whipple procedure. No discrete new solid mass identified to suggest new recurrent or metastatic disease. 2. 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 These appear similar in size compared to the recent studies and decreased in size from the preoperative studies. Consider follow-up evaluation with MRI to demonstrate stability. Dictated by: Adán Carpenter M.D. on 11/13/2021 at 16:28 Approved by: Adán Carpenter M.D. on 11/13/2021 at 16:45
== END ==
PROVIDERS: PCP Physician Assistant; Referring Provider Internal Medicine Hematology & Oncology; Visit Provider Internal Medicine Hematology & Oncology
DX: C24.1 Malignant neoplasm of ampulla of Vater (principal); R91.1 Solitary pulmonary nodule; K86.2 Cyst of pancreas; K44.9 Diaphragmatic hernia without obstruction or gangrene
CPT/HCPCS: 74160; Q9967

== ENCOUNTER → 2022-02-17 12:33 | Outpatient (CLI) | payer OTHER, SELFPAY ==
--- NOTE | 2022-02-17 12:34 | DI.MRI.S_ITS ---
PROCEDURE: MR ABDOMEN WO/W CON INDICATIONS: carcinoma of ampulla of Vater, IPMN TECHNIQUE: Coronal HASTE, axial 2D FLASH in- and [id number]; axial breath-hold T2 FSE with fat saturation from the hepatic dome to the iliac crests. Oblique coronal thin-slice and radial thick slab HASTE through the biliary system. Dynamic axial VIBE during administration of contrast. Post-contrast coronal VIBE or 2D FLASH with fat saturation from the hepatic dome to the iliac crests. Optional diffusion weighted imaging and ADC may be performed. COMPARISON: Outside Facility, RG, CT THORAX/ABDOMEN/PELVIS WITH CONTRAST, 07/07/2020, 10:52. FINDINGS: Image quality: Adequate. There is excessive breathing motion. Pancreas and biliary system: Prior Whipple procedure. Intact anastomoses. The remaining pancreas demonstrates a normal caliber duct and numerous rounded dilated side branches throughout the body, and tail. There is no suspicious enhancement postcontrast of the pancreas. Solid organs: Liver is normal in size and enhancement. No enhancing lesions. Intrahepatic bile ducts are normal caliber. Hepaticojejunostomy is present. Gallbladder is absent. Spleen is normal in size and enhancement. No adrenal nodules. Kidneys are normal in size and enhancement, without hydronephrosis. Nodes and vessels: No retroperitoneal or mesenteric adenopathy by size criteria. Aorta and inferior vena cava are normal in size. Bowel and peritoneum: Diffuse thickening and decreased signal of the mesenteric fat. Unenhanced bowel loops are normal in caliber throughout. No free fluid. Lung bases: No basal pleural effusions. Heart size is normal. Bones and soft tissues: No ventral hernias. Bone marrow is normal in overall signal. IMPRESSION: 1. Numerous cystic dilatation throughout the body and tail of the pancreas, decreased size and extent compared to remote prior studies, probably in part due to relief of proximal obstruction. There is no enhancement to suggest malignant transformation. One year follow-up is recommended. 2. Prior Whipple procedure with intact anastomoses. 3. Chronic thickening and decreased signal intensity within mesenteric fat stable compared to prior CT consistent with fat stranding. Dictated by: Dariela Arenas M.D. on 02/17/2022 at 17:05 Approved by: Dariela Arenas M.D. on 02/17/2022 at 17:25
== END ==
PROVIDERS: PCP Physician Assistant; Referring Provider Internal Medicine Hematology & Oncology; Visit Provider Internal Medicine Hematology & Oncology
DX: C24.1 Malignant neoplasm of ampulla of Vater (principal); K83.8 Other specified diseases of biliary tract; Z98.0 Intestinal bypass and anastomosis status
CPT/HCPCS: 74183; A9579

== ENCOUNTER 2022-05-05 13:40 | Observation (INO) | payer OTHER, SELFPAY ==
[2022-05-05] VITALS (16 sets, daily range): BP systolic 118–169; BP diastolic 63–83; PULSE 57–76; RESP 16–32; TEMP 36.3–36.9; O2SAT 97–100; BMI 25.0
--- NOTE | 2022-05-05 13:48 | DI.RAD.S_ITS ---
PROCEDURE: XR CHEST 1V INDICATIONS: Possible stroke TECHNIQUE: One view of the chest was acquired. COMPARISON: [facility], CR, XR CHEST 1V, 01/03/2021, 13:35. FINDINGS: Surgical changes and devices: Right Port-A-Cath is unchanged. Lungs and pleura: Lungs are clear. No pleural effusions or pneumothorax. Mediastinum: Mediastinal contours appear normal. Heart size is normal. Bones and chest wall: No suspicious bony lesions. Overlying soft tissues appear unremarkable. IMPRESSION: No acute cardiopulmonary findings. Dictated by: Dana Brown M.D. on 05/05/2022 at 14:12 Approved by: Dana Brown M.D. on 05/05/2022 at 14:12
--- NOTE | 2022-05-05 13:48 | DI.CT.S_ITS ---
PROCEDURE: CT STROKE INDICATIONS: Positive BE-FAST, Stroke symptoms TECHNIQUE: Noncontrast 4.5 mm thick angled axial sections acquired from the foramen magnum to the vertex, with coronal reformats. For radiation dose reduction, the following was used: automated exposure control, adjustment of mA and/or kV according to patient size. COMPARISON: [facility], CT, CT ANGIO HEAD AND NECK, 05/05/2022, 14:13. FINDINGS: Image quality: Mild streak artifact can be seen through the skull base. CSF spaces: Basal cisterns are patent. No extra-axial fluid collections. The ventricles are symmetric in size and shape. Brain: No intracranial bleeds or masses. There is cerebral volume loss for age, with resultant ventricular and sulcal prominence. There are periventricular and deep white matter chronic small vessel ischemic changes. There is intracranial internal carotid artery atherosclerosis. Skull and face: Calvarium and visualized facial bones appear intact, without suspicious lesions. Sinuses: Visualized sinuses and mastoids are clear. IMPRESSION: No acute intracranial hemorrhage is seen. No acute intracranial process is seen. If there is strong clinical suspicion for an acute stroke, please consider a brain MRI for further evaluation, as it is more sensitive (assuming that there is no contraindication to MRI). Note: Concordant preliminary findings given by the supervisor [employer] upon the completion of the examination to Dr. Deras at 1:45 p.m. [place] time on May 05, 2022. This study fulfills neurological imaging criteria for inclusion or exclusion of acute stroke therapies based on available published neurological guidelines. Dictated by: Onel Abad M.D. on 05/05/2022 at 13:43 Approved by: Onel Abad M.D. on 05/05/2022 at 13:45
--- NOTE | 2022-05-05 14:04 | DI.CT.S_ITS ---
PROCEDURE: CT ANGIO HEAD AND NECK INDICATIONS: face droop. speech change resolved., intermittent TECHNIQUE: Noncontrast images were performed earlier in the day and not repeated. After the administration of intravenous contrast, 1 mm thick sections acquired from the aortic arch through the Jacob of [place]. Post-contrast 4.5 mm thick sections then re-acquired from the foramen magnum to the vertex. 3-dimensional [id number] (MIP) and/or volume rendering reformats were acquired of the central intracranial vasculature and neck separately. For radiation dose reduction, the following was used: automated exposure control, adjustment of mA and/or kV according to patient size. COMPARISON: None. FINDINGS: Image quality: This examination is limited by involuntary motion artifact. BRAIN: CSF spaces: Ventricles are normal in size and shape. Basal cisterns are patent. No extra-axial fluid collections. Brain: No midline shift. No intracranial bleeds or masses. Jerry-white matter interface appears intact. Skull and face: Calvarium and facial bones appear intact, without suspicious lesions. Orbits appear normal. Sinuses: Sinuses and mastoids are clear. HEAD CT ANGIOGRAPHY: Anterior circulation: Intracranial internal carotid arteries are normal in size and flow. The flow within the paired anterior cerebral arteries is normal and symmetric. The flow within the middle cerebral arteries is normal and symmetric. The anterior communicating artery is seen. No aneurysms are seen. Posterior circulation: Visualized portions of the vertebral arteries demonstrate normal caliber, and join to form a normal appearing basilar artery. Flow within the posterior cerebral arteries is normal and symmetric. No aneurysms are seen. NECK CT ANGIOGRAPHY: Carotid system: The great vessels demonstrate a conventional anatomy as they arise from the aortic arch. The origins of the common carotid arteries appear patent. The common carotid arteries demonstrate normal caliber and courses. The bifurcation regions are both widely patent. The internal carotid arteries demonstrate normal calibers and courses. Posterior circulation: The origins of the vertebral arteries both appear widely patent. The more superior extracranial portions of both vertebral arteries also demonstrate normal courses and calibers. They join to form a normal appearing basilar artery. Soft tissues: Visualized neck soft tissues demonstrate no suspicious abnormalities. A right-sided central line is partially seen. Bones: No suspicious bony lesions. Visualized cervical spine appears normally aligned. Age-appropriate bony degenerative changes are seen. IMPRESSION: Within the arteries of the neck, no hemodynamically significant stenosis can be seen. Note: Case discussed by telephone with Dr. Deras at 1:45 p.m. [place] time on May 05, 2022. Any quantitative measurements of stenosis were performed using NASCET criteria. Dictated by: Onel Abad M.D. on 05/05/2022 at 13:46 Approved by: Onel Abad M.D. on 05/05/2022 at 13:47
[2022-05-05 14:11] LABS: Add Manual Diff / Slide Review NO; Basophils Absolute Auto 0 /uL (0-100); Eosinophils Absolute Auto 100 /uL (0-450); Eosinophils Percent Auto 1.1 % (2-4); Hematocrit 34.7 % (41-53); Hemoglobin 12.2 g/dL (13.5-17.5); Lymphocytes Absolute Auto 1800 /uL (1100-4500); Lymphocytes Percent Auto 40.6 % (25-40); Mean Corpuscular HGB Conc 35.3 % (30-36); Mean Corpuscular Hemoglobin 33.8 PG (26-34); Mean Corpuscular Volume 95.9 fL (80-100); Monocytes Absolute Auto 400 /uL (0-900); Monocytes Percent Auto 9.2 % (3-14); Neutrophils Absolute Auto 2100 /uL (1500-7000); Neutrophils Percent Auto 48.1 % (50-75); Platelet Count 192 X10^3/uL (150-400); Red Blood Cell Count 3.62 X10^6/uL (4.5-5.9); Red Cell Distribution Width 13.1 % (11.6-14.8); White Blood Cell Count 4.5 X10^3/uL (4.5-11.0)
[2022-05-05 14:19] LABS: INR 1.1 (0.9-1.3); Prothrombin Time 12.7 SECONDS (10.1-12.7)
[2022-05-05 14:21] LABS: PTT Partial Thromboplastin Tim 31 SECONDS (26.4-36.2)
[2022-05-05 14:22] LABS: Alanine Aminotransferase 22 IU/L (<50); Albumin 3.7 g/dL (3.5-5.0); Albumin Globulin Ratio 1.3 (1.0-2.8); Alkaline Phosphatase 70 U/L (38-126); Aspartate Aminotransferase 26 IU/L (17-59); BUN Creatinine Ratio 27.6 (6-22); Bilirubin Total 0.3 mg/dL (0.2-1.3); Blood Urea Nitrogen 24 mg/dL (9-20); Calcium 8.6 mg/dL (8.4-10.2); Carbon Dioxide 24 mmol/L (22-32); Chloride 110 mmol/L (98-107); Creatine Kinase 31 U/L (55-170); Estimated Glomerular Filt Rate > 60 mL/min (>60); Globulin 2.8 g/dL (1.7-4.1); Glucose 115 mg/dL (80-110); HEMOLYSIS < 15 (0-50); Magnesium 2.1 mg/dL (1.6-2.3); Potassium 4.3 mmol/L (3.4-5.1); Sodium 139 mmol/L (137-145); Total Protein 6.5 g/dL (6.3-8.2)
[2022-05-05 14:33] LABS: Troponin I < 0.012 ng/mL (0.01-0.034)
[2022-05-05 15:43] LABS: COVID19 -Nasal RAPID Negative (Negative)
--- NOTE | 2022-05-05 16:39 | ED.NEUROSD ---
HPI - Neuro Symptoms/Deficit General Chief Complaint: Neuro Symptoms/Deficit Stated Complaint: Rt side face drooping, slurred speech 20 mins ago Time Seen by Provider: 05/05/22 14:04 Source: patient and family Mode of arrival: Ambulatory Limitations: no limitations History of Present Illness HPI Narrative: This is a 82-year-old male with history of ampullary/pancreatic cancer with Whipple in 2020, mitral valve prolapse which has been stable, BPH and hypothyroidism. Patient states today at about 13 30 he had 20 minutes of right facial droop and dysarthria. He did not appreciate any expressive aphasia. Denies headache, vision changes, no numbness or tingling or weakness of his extremities, patient denies any chest pain or shortness of breath. No nausea or vomiting, no other GI or urinary symptoms. He has not had similar symptoms in the past. Denies history of hypertension, diabetes, dyslipidemia chronic kidney disease. Patient states no prior strokes or heart attacks. Denies other surgeries besides Whipple procedure. Several medication allergies, no tobacco, alcohol or illicit. Cinthya-is his primary care he does follow for his mitral valve regularly and states it has been stable for years and has multiple siblings with similar history. On Anticoagulants: No Related Data Home Medications Medication Instructions Recorded Confirmed MULTIVITAMIN/MINERALS (Thera M 1 tab PO Q DAY ##0 03/07/10 05/05/22 Plus Tablet) levothyroxine 75 mcg tablet 88 mcg PO QDAY@0600 ##0 07/24/12 05/05/22 (Synthroid) tamsulosin 0.4 mg capsule (Flomax) 0.8 mg PO QDAY ##0 10/12/16 05/05/22 ascorbic acid (vitamin C) 500 mg 500 mg PO DAILY 12/24/20 05/05/22 tablet (Vitamin C) cholecalciferol (vitamin D3) 125 125 mcg PO DAILY 12/24/20 05/05/22 mcg (5,000 unit) tablet (Vitamin D3) finasteride 5 mg tablet 5 mg PO DAILY 12/24/20 05/05/22 qxwadh-cvzmxqsd-bweczxx 2 cap PO TID PRN Digestion 12/24/20 05/05/22 24,000-76,000-120,000 unit capsule,delayed rel (Creon) zinc 50 mg capsule 50 mg PO DAILY 12/24/20 05/05/22 lysine 500 mg capsule 1,500 mg PO DAILY PRN Cold Sores 01/03/21 05/05/22 melatonin 5 mg tablet 5 mg PO BEDTIME PRN Sleep 01/03/21 05/05/22 Allergies Allergy/AdvReac Type Severity Reaction Status Date / Time propoxyphene [PROPOXYPHENE] Allergy Severe FACIAL Verified 01/03/21 11:45 SWELLING, RASH clindamycin [CLINDAMYCIN] Allergy Intermediate RASH AND Verified 01/03/21 11:45 C. 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 HEENT: Atraumatic, pupils are equal round reactive to light, extraocular movements are intact, nares are clear, TMs are clear with no fluid, there is no conjunctival pallor. Throat is clear without any exudates, erythema, tonsillar enlargement or uvular deviation, no facial droop. HEART: Regular rate and rhythm without murmur, clicks, rubs. No carotid bruits, pulses are equal in upper and lower extremities LUNGS:Lungs clear to auscultation, no wheezes, rales, crackles, chest moves symmetrically ABD:bowel sounds normal, soft, non-tender, no guarding, rebound, rigidity, no masses noted, no hepatosplenomegaly MSCL: Non-tender, no muscle atrophy, muscles strength 5/5 upper and lower extremities, full range of motion, normal gait NEURO:CN 2-12 intact, sensation normal, reflexes 2/4 upper and lower extremities. finger nose finger test normal, heel crowder test normal, normal speech. Initial Vital Signs Initial Vital Signs: Vital Signs Pulse Rate 76 05/05/22 13:45 Pulse Oximetry 98 05/05/22 13:45 Scores NIH Stroke Scale Level of Conciousness: Alert, keenly responsive Ask month/age: Answers both questions correctly. Open/close eyes, close hand: Performs both tasks correctly Best gaze horizontal: Normal Visual payton: No visual loss Facial palsy: Normal symetrical movement Left arm drift: No drift for full 10 sec Right arm drift: No drift for full 10 sec Left leg drift: No drift for full 5 sec Right leg drift: No drift for full 5 sec Limb ataxia: Absent Sensory on face/arms/legs: Normal, no sensory loss Best language: No aphasia, normal Dysarthria: Normal Extinction or inattention: No abnormality Total NIH Stroke scale score: 0 Course Orders Ordered: ED Orders 05/05/22 13:48 CT Stroke Stat XR chest 1V Stat 05/05/22 13:50 EKG-12 Lead Stat 05/05/22 13:55 Complete Blood Count AUTO DIFF Stat Comprehensive Metabolic Panel Stat Magnesium Stat Partial Thromboplastin Time Stat Prothrombin Time INR Stat Troponin & CK Cardiac Panel Stat 05/05/22 14:00 COVID19 -Nasal RAPID/Pre-Proc Stat 05/05/22 14:04 CT angio head and neck Stat 05/05/22 16:08 Urinalysis and Microscopic Stat Urine Drug Screen, Rapid Stat 05/05/22 16:58 MR head/brain wo con Stat Acetaminophen (Acetaminophen 325 Mg Tablet) 975 mg PO Q8H PRN PRN Reason: Pain, Mild (1-3) Aspirin (Aspirin Ec 81 Mg Tablet) 81 mg PO DAILY TINY Atorvastatin Calcium (Atorvastatin 20 Mg Tablet) 40 mg PO BEDTIME PENDING SALE TO [facility] Finasteride (Finasteride 5 Mg Tablet) 5 mg PO DAILY PENDING SALE TO [facility] Levothyroxine Sodium (Levothyroxine 88 Mcg Tablet) 88 mcg PO 0600 TINY Melatonin (Melatonin 3 Mg Tablet) 6 mg PO BEDTIME PRN PRN Reason: Sleep Non-Formulary Medication (Tzpcpr-Bghyourt-Mdnjesy [Creon]) 2 cap PO TID PRN PRN Reason: Digestion Ondansetron HCl (Ondansetron 4 Mg/2 Ml Inj) 4 mg IV Q8HR PRN PRN Reason: Nausea And Vomiting Tamsulosin HCl (Tamsulosin 0.4 Mg Capsule) 0.8 mg PO DAILY TINY Discontinued Medications Aspirin (Aspirin 81 Mg Chew Tab) 324 mg PO NOW ONE Stop: 05/05/22 17:04 Last Admin: 05/05/22 18:12 Dose: 324 mg Documented By: ISABEL Consultations Consultation #1: Dr. Gallagher accepts for observation. NIH 0, MRI ordered. Vital Signs Vital signs: Vital Signs - 8 hr 05/05/22 13:48 05/05/22 13:45 05/05/22 14:03 Temperature 98.4 F Pulse Rate 63 76 67 Respiratory Rate 20 Blood Pressure 121/63 Pulse Oximetry 97 98 99 Oxygen Delivery Method Room Air 05/05/22 14:20 05/05/22 14:20 05/05/22 14:30 Temperature Pulse Rate 63 Respiratory Rate 32 H Blood Pressure 121/63 118/64 Pulse Oximetry 98 Oxygen Delivery Method 05/05/22 14:30 05/05/22 15:00 05/05/22 15:00 Temperature Pulse Rate 62 60 Respiratory Rate 31 H 21 Blood Pressure 124/69 Pulse Oximetry 98 98 Oxygen Delivery Method 05/05/22 15:30 05/05/22 15:30 05/05/22 16:00 Temperature Pulse Rate 60 63 Respiratory Rate 16 Blood Pressure 130/67 Pulse Oximetry 99 98 Oxygen Delivery Method 05/05/22 16:30 05/05/22 17:00 05/05/22 17:30 Temperature Pulse Rate 62 66 62 Respiratory Rate 17 23 20 Blood Pressure Pulse Oximetry 98 100 99 Oxygen Delivery Method MDM - Neuro Symptoms/Deficit Lab Data Result diagrams: 05/05/22 13:55 05/05/22 13:55 Labs: Lab Results 05/05/22 05/05/22 05/05/22 Range/Units 13:55 13:55 13:55 WBC 4.5 (4.5-11.0) X10^3/uL RBC 3.62 L (4.5-5.9) X10^6/uL Hgb 12.2 L (13.5-17.5) g/dL Hct 34.7 L (41-53) % MCV 95.9 (80-100) fL MCH 33.8 (26-34) PG MCHC 35.3 (30-36) % RDW 13.1 (11.6-14.8) % Plt Count 192 (150-400) X10^3/uL Neut % (Auto) 48.1 L (50-75) % Lymph % (Auto) 40.6 H (25-40) % [place] % (Auto) 9.2 (3-14) % Eos % (Auto) 1.1 L (2-4) % Baso % (Auto) 1.0 (0-2) % Neut # (Auto) 2100 (3729-8105) /uL Lymph # (Auto) 1800 (9917-6887) /uL [place] # (Auto) 400 (0-900) /uL Eos # (Auto) 100 (0-450) /uL Baso # (Auto) 0 (0-100) /uL PT 12.7 (10.1-12.7) SECONDS INR 1.1 (0.9-1.3) APTT 31 (26.4-36.2) SECONDS Sodium 139 (137-145) mmol/L Potassium 4.3 (3.4-5.1) mmol/L Chloride 110 H (98-107) mmol/L Carbon Dioxide 24 (22-32) mmol/L BUN 24 H (9-20) mg/dL Creatinine 0.87 (0.66-1.25) mg/dL Estimated GFR > 60 (>60) mL/min BUN/Creatinine Ratio 27.6 H (6-22) Glucose 115 H (80-110) mg/dL Calcium 8.6 (8.4-10.2) mg/dL Magnesium 2.1 (1.6-2.3) mg/dL Total Bilirubin 0.3 (0.2-1.3) mg/dL AST 26 (17-59) IU/L ALT 22 (<50) IU/L Alkaline Phosphatase 70 (38-126) U/L Total Creatine Kinase 31 L (55-170) U/L CK-MB (CK-2) TNP CK-MB (CK-2) Rel Index TNP Troponin I < 0.012 (0.01-0.034) ng/mL Total Protein 6.5 (6.3-8.2) g/dL Albumin 3.7 (3.5-5.0) g/dL Globulin 2.8 (1.7-4.1) g/dL Albumin/Globulin Ratio 1.3 (1.0-2.8) Urine Color Urine Appearance Urine pH (4.5-8.0) Ur Specific [place] (1.000-1.035) Urine Protein (Negative) Urine Glucose (UA) (Negative) g/dL Urine Ketones (NEGATIVE) Urine Occult Blood (Negative) Urine Nitrate (Negative) Urine Bilirubin (NEGATIVE) Urine Urobilinogen (0.2) E.U./dL Ur Leukocyte Esterase (NEGATIVE) Urine RBC (0-5/HPF) Urine WBC (0-5/HPF) Urine Bacteria (None) Ur Culture Indicated? Micro UA Comment U Opiates 300ng/mL cut (Negative) Ur Oxycodone Screen (Negative) Urine Methadone Screen (Negative) Ur Barbiturates Screen (Negative) U Tricyclic Antidepress (Negative) Ur Phencyclidine Scrn (Negative) Ur Amphetamines Screen (Negative) U Methamphetamines Scrn (Negative) Ur MDMA Scrn (Ecstasy) (Negative) U Benzodiazepines Scrn (Negative) Urine Cocaine Screen (Negative) U Marijuana (THC) Screen (Negative) SARS-CoV-2 (PCR) (Negative) 05/05/22 05/05/22 05/05/22 Range/Units 14:00 16:08 16:08 WBC (4.5-11.0) X10^3/uL RBC (4.5-5.9) X10^6/uL Hgb (13.5-17.5) g/dL Hct (41-53) % MCV (80-100) fL MCH (26-34) PG MCHC (30-36) % RDW (11.6-14.8) % Plt Count (150-400) X10^3/uL Neut % (Auto) (50-75) % Lymph % (Auto) (25-40) % [place] % (Auto) (3-14) % Eos % (Auto) (2-4) % Baso % (Auto) (0-2) % Neut # (Auto) (3325-4199) /uL Lymph # (Auto) (2775-7771) /uL [place] # (Auto) (0-900) /uL Eos # (Auto) (0-450) /uL Baso # (Auto) (0-100) /uL PT (10.1-12.7) SECONDS INR (0.9-1.3) APTT (26.4-36.2) SECONDS Sodium (137-145) mmol/L Potassium (3.4-5.1) mmol/L Chloride (98-107) mmol/L Carbon Dioxide (22-32) mmol/L BUN (9-20) mg/dL Creatinine (0.66-1.25) mg/dL Estimated GFR (>60) mL/min BUN/Creatinine Ratio (6-22) Glucose (80-110) mg/dL Calcium (8.4-10.2) mg/dL Magnesium (1.6-2.3) mg/dL Total Bilirubin (0.2-1.3) mg/dL AST (17-59) IU/L ALT (<50) IU/L Alkaline Phosphatase (38-126) U/L Total Creatine Kinase (55-170) U/L CK-MB (CK-2) CK-MB (CK-2) Rel Index Troponin I (0.01-0.034) ng/mL Total Protein (6.3-8.2) g/dL Albumin (3.5-5.0) g/dL Globulin (1.7-4.1) g/dL Albumin/Globulin Ratio (1.0-2.8) Urine Color Yellow Urine Appearance Clear Urine pH 5.0 (4.5-8.0) Ur Specific [place] 1.010 (1.000-1.035) Urine Protein Negative (Negative) Urine Glucose (UA) Negative (Negative) g/dL Urine Ketones Negative (NEGATIVE) Urine Occult Blood Negative (Negative) Urine Nitrate Negative (Negative) Urine Bilirubin Negative (NEGATIVE) Urine Urobilinogen 0.2 (0.2) E.U./dL Ur Leukocyte Esterase Negative (NEGATIVE) Urine RBC None seen (0-5/HPF) Urine WBC None seen (0-5/HPF) Urine Bacteria None seen (None) Ur Culture Indicated? Cult not indicated Micro UA Comment Microscopic normal U Opiates 300ng/mL cut Negative (Negative) Ur Oxycodone Screen Negative (Negative) Urine Methadone Screen Negative (Negative) Ur Barbiturates Screen Negative (Negative) U Tricyclic Antidepress Negative (Negative) Ur Phencyclidine Scrn Negative (Negative) Ur Amphetamines Screen Negative (Negative) U Methamphetamines Scrn Negative (Negative) Ur MDMA Scrn (Ecstasy) Negative (Negative) U Benzodiazepines Scrn Negative (Negative) Urine Cocaine Screen Negative (Negative) U Marijuana (THC) Screen Negative (Negative) SARS-CoV-2 (PCR) Negative (Negative) Imaging Data CT scan - head: Radiologist's Impression: [address] [id number] [address] Scan Report Signed Patient: Addy Fritz MR#: [id number] : 1940 Acct:[id number] Age/Sex: 82 / M Date of Service: 05/05/22 Loc: ED Accession Number: [id number] ?? Procedure: CT Stroke Ordering Provider: Angélica Deras D.O. PROCEDURE:? CT STROKE ? INDICATIONS:? Positive BE-FAST, Stroke symptoms ? TECHNIQUE:? Noncontrast 4.5 mm thick angled axial sections acquired from the foramen magnum to the vertex, with coronal reformats.? For radiation dose reduction, the following was used:? automated exposure control, adjustment of mA and/or kV according to patient size.? ? COMPARISON:? [facility], CT, CT ANGIO HEAD AND NECK, 05/05/2022, 14:13. ? FINDINGS:? Image quality:? Mild streak artifact can be seen through the skull base. ? CSF spaces:? Basal cisterns are patent.? No extra-axial fluid collections.? The ventricles are symmetric in size and shape.? ? Brain:? No intracranial bleeds or masses.? There is cerebral volume loss for age, with resultant ventricular and sulcal prominence.? There are periventricular and deep white matter chronic small vessel ischemic changes.? There is intracranial internal carotid artery atherosclerosis.? ? Skull and face:? Calvarium and visualized facial bones appear intact, without suspicious lesions.? ? Sinuses:? Visualized sinuses and mastoids are clear.? ? ? IMPRESSION:? No acute intracranial hemorrhage is seen.? ? No acute intracranial process is seen.? ? If there is strong clinical suspicion for an acute stroke, please consider a brain MRI for further evaluation, as it is more sensitive (assuming that there is no contraindication to MRI).? ? Note: Concordant preliminary findings given by the compensation and hris analyst upon the completion of the examination to Dr. Deras at 1:45 p.m. [place] time on May 05, 2022. ? ? This study fulfills neurological imaging criteria for inclusion or exclusion of acute stroke therapies based on available published neurological guidelines.? ? ? Dictated by: Onel Abad M.D. on 05/05/2022 at 13:43 ? ? Approved by: Onel Abad M.D. on 05/05/2022 at 13:45 CTA - brain/neck: Radiologist's Impression: [address] [address] [address] Scan Report Signed Patient: Addy Fritz MR#: [id number] : 1940 Acct:[id number] Age/Sex: 82 / M Date of Service: 05/05/22 Loc: ED Accession Number: [id number] ?? Procedure: CT angio head and neck Ordering Provider: Angélica Deras D.O. PROCEDURE:? CT ANGIO HEAD AND NECK ? INDICATIONS:? face droop. speech change resolved., intermittent ? TECHNIQUE:? Noncontrast images were performed earlier in the day and not repeated.? ? After the administration of intravenous contrast, 1 mm thick sections acquired from the aortic arch through the [place].? Post-contrast 4.5 mm thick sections then re-acquired from the foramen magnum to the vertex.? 3-dimensional ozrxjsp-ekpafysld-anhoecchfa (MIP) and/or volume rendering reformats were acquired of the central intracranial vasculature and neck separately. For radiation dose reduction, the following was used:? automated exposure control, adjustment of mA and/or kV according to patient size.? ? COMPARISON:? None. ? FINDINGS:? Image quality:? This examination is limited by involuntary motion artifact.? ? BRAIN:? CSF spaces:? Ventricles are normal in size and shape.? Basal cisterns are patent.? No extra-axial fluid collections.? ? Brain:? No midline shift.? No intracranial bleeds or masses.? Jerry-white matter interface appears intact.? ? Skull and face:? Calvarium and facial bones appear intact, without suspicious lesions.? Orbits appear normal.? ? Sinuses:? Sinuses and mastoids are clear.? ? HEAD CT ANGIOGRAPHY:? Anterior circulation:? Intracranial internal carotid arteries are normal in size and flow.? The flow within the paired anterior cerebral arteries is normal and symmetric.? The flow within the middle cerebral arteries is normal and symmetric.? The anterior communicating artery is seen.? No aneurysms are seen.? ? Posterior circulation:? Visualized portions of the vertebral arteries demonstrate normal caliber, and join to form a normal appearing basilar artery.? Flow within the posterior cerebral arteries is normal and symmetric.? No aneurysms are seen.? ? NECK CT ANGIOGRAPHY:? Carotid system:? The great vessels demonstrate a conventional anatomy as they arise from the aortic arch.? The origins of the common carotid arteries appear patent.? The common carotid arteries demonstrate normal caliber and courses.? The bifurcation regions are both widely patent.? The internal carotid arteries demonstrate normal calibers and courses.? ? Posterior circulation:? The origins of the vertebral arteries both appear widely patent.? The more superior extracranial portions of both vertebral arteries also demonstrate normal courses and calibers.? They join to form a normal appearing basilar artery.? ? Soft tissues:? Visualized neck soft tissues demonstrate no suspicious abnormalities.? A right-sided central line is partially seen. ? Bones:? No suspicious bony lesions.? Visualized cervical spine appears normally aligned.? Age-appropriate bony degenerative changes are seen. ? IMPRESSION:? Within the arteries of the neck, no hemodynamically significant stenosis can be seen. ? ? Note: Case discussed by telephone with Dr. Deras at 1:45 p.m. [place] time on May 05, 2022. ? ? Any quantitative measurements of stenosis were performed using NASCET criteria.? ? ? Dictated by: Onel Abad M.D. on 05/05/2022 at 13:46 ? ? Approved by: Onel Abad M.D. on 05/05/2022 at 13:47? Chest x-ray: Radiologist's Impression: [address] [id number] XRay Report Signed Patient: Addy Fritz MR#: [id number] : 1940 Acct:[id number] Age/Sex: 82 / M Date of Service: 05/05/22 Loc: ED Accession Number: [id number] ?? Procedure: XR chest 1V Ordering Provider: Angélica Deras D.O. PROCEDURE:? XR CHEST 1V ? INDICATIONS:? Possible stroke ? TECHNIQUE:? One view of the chest was acquired.? ? COMPARISON:? [facility], , XR CHEST 1V, 01/03/2021, 13:35. ? FINDINGS:? ? Surgical changes and devices:? Right Port-A-Cath is unchanged. ? Lungs and pleura:? Lungs are clear.? No pleural effusions or pneumothorax.? ? Mediastinum:? Mediastinal contours appear normal.? Heart size is normal.? ? Bones and chest wall:? No suspicious bony lesions.? Overlying soft tissues appear unremarkable.? ? IMPRESSION:? No acute cardiopulmonary findings. ? ? Dictated by: Dana Brown M.D. on 05/05/2022 at 14:12 ? ? Approved by: Dana Brown M.D. on 05/05/2022 at 14:12?? ECG Data Attestation: I personally reviewed and interpreted this ECG as follows: Interpretation: NSR, rate of 68, MN 148, QRS 106, QTC 433. NSR, LAFP. No acute ST changes. MDM Narrative Medical decision making narrative: This is an 82 year old male with sudden onset of dysarthria and facial droop that resolved. Patient symptoms resolved, NIH 0 so not tpa candidate. CT and CTA negative. No acute lab changes. Patient accepted by [facility] for observation. Discharge Plan Departure Patient Disposition: Admitted as Observation Clinical Impression: TIA (transient ischemic attack) Admit Date/Time: 05/05/22 17:35 Admit Provider: Darian Gallagher
[2022-05-05 16:47] LABS: Appearance Urine UA CLEAR; Bilirubin Urine UA NEGATIVE (NEGATIVE); Color Urine UA YELLOW; Glucose Urine UA NEGATIVE (Negative); Ketones Urine UA NEGATIVE (NEGATIVE); Leukocyte Esterase Urine UA NEGATIVE (NEGATIVE); Nitrite Urine UA NEGATIVE (Negative); Occult Blood Urine UA NEGATIVE (Negative); Protein Urine UA NEGATIVE (Negative); Urobilinogen Urine UA 0.2 E.U./dL (0.2)
[2022-05-05 16:49] LABS: UR Morphine/Opiate cutoff 300 Negative (Negative); Ur Creatinine Normal (Normal); Ur Specific Gravity Normal (Normal); Urine Amphetamines Negative (Negative); Urine Barbiturates Negative (Negative); Urine Benzodiazepines Negative (Negative); Urine Cocaine Negative (Negative); Urine MDMA Negative (Negative); Urine Methadone Negative (Negative); Urine Methamphetamines Negative (Negative); Urine Oxycodone Negative (Negative); Urine Phencyclidine Negative (Negative); Urine Tetrahydrocannabinol Negative (Negative); Urine Tricyclic Antidepressant Negative (Negative); Urine pH Normal (Normal)
--- NOTE | 2022-05-05 16:58 | DI.MRI.S_ITS ---
PROCEDURE: MR HEAD/BRAIN WO CON INDICATIONS: tia, right facial droop/dysarthria TECHNIQUE: Non-contrast axial T1 spin echo, axial T2 fast spin echo, sagittal and axial FLAIR, coronal T2 fast spin echo, axial gradient echo, axial diffusion and ADC through the brain. COMPARISON: [facility], CT, CT ANGIO HEAD AND NECK, 05/05/2022, 14:13. FINDINGS: Image quality: Excellent. CSF spaces: Ventricles appear symmetric in size and shape. Basal cisterns are patent. No extra-axial fluid collections. Brain: No intracranial bleeds or mass effects. There is cerebral volume loss for age. There are periventricular and deep white matter chronic small vessel ischemic changes. Brainstem appears normal. Diffusion-weighted images show no acute ischemic insults. No chronic ischemic insults. Left IJ, sigmoid sinus, and transverse sinus flow void absent. Normal intravascular flow voids are otherwise maintained. Skull and face: Calvarial bone marrow is normal in signal. Orbits are normal. Sinuses: Sinuses and mastoids are clear. IMPRESSION: No acute infarct or other acute intracranial finding. Moderate global cerebral volume loss and chronic microvascular ischemic changes. Loss of flow void in the left transverse sinus, sigmoid sinus, and partially visualized upper internal jugular vein suggestive of either thrombosis or more likely slow flow. These vessels were widely patent on recent CT angiogram. Dictated by: Kolby Nelson M.D. on 05/05/2022 at 18:48 Approved by: Kolby Nelson M.D. on 05/05/2022 at 18:52
[2022-05-05 17:06] LABS: Bacteria Urine None Seen; Culture Indicated Urine Cult Not Indicated; RBC Urine None Seen (0-5/HPF); Urine Comments Microscopic Normal; WBC Urine None Seen (0-5/HPF)
[2022-05-05] MEDS: ASPIRIN 81 MG CHEW TAB 324 MG PO (18:12)
--- NOTE | 2022-05-05 18:48 | DI.ECHO.S_ITS ---
[facility]---------+ [facility] +---------+ : : [address] : : : : [id number] : : : : Phone: [phone]+ Echocardiogram Report + + :Name: Suzanne BARRETO Study Date: 05/06/2022 Height: 73 in : :[facility] ReadingLocation: Weight: 190 lb : : Gender: Male BSA: 2.1 m2 : :: 1940 Age: 82 yrs BP: 111/67 mmHg: :Reason For Study: TIA : :Ordering Physician: AGUILA, : :CHIQUITA IRVIN Performed By: Merritt Gao : :Referring: CHIQUITA SHEEHAN : + + Interpretation Summary The ejection fraction is estimated to be 55-60%. Diastolic parameters suggest probable normal left ventricular diastolic function and normal filling pressures. The right ventricle is normal in size and function. There is mild aortic regurgitation. Pulmonary artery pressures cannot be estimated because of the lack of a measurable TR jet velocity. The ascending aorta is moderately enlarged, 4.6 cm. Compared to the prior study dated 11/02/2017, no significant change. Procedure: A two-dimensional transthoracic echocardiogram with color flow and Doppler was performed. The study quality was technically adequate. Comparison is made with the echocardiogram of 11/02/2017. The patient was in normal sinus rhythm during the exam. Left Ventricle: The left ventricle is normal in size and wall thickness. Left ventricular systolic function is normal. The ejection fraction is estimated to be 55-60%. There are no focal wall motion abnormalities. Diastolic parameters suggest probable normal left ventricular diastolic function and normal filling pressures. Right Ventricle: The right ventricle is normal in size and function. Atria: Both atria are normal in size. The interatrial septum grossly appears intact with no obvious evidence for an atrial septal defect. Mitral Valve: The mitral valve is normal in structure and function. There is trace mitral regurgitation. Aortic Valve: The aortic valve is normal in structure and function. There is no aortic valve stenosis. There is mild aortic regurgitation. Tricuspid Valve: The tricuspid valve is normal in structure and function. There is trace tricuspid regurgitation. Pulmonary artery pressures cannot be estimated because of the lack of a measurable TR jet velocity. Pulmonic Valve: The pulmonic valve is normal in structure and function. There is no pulmonic valvular regurgitation. Great Vessels: The aortic root is mildly dilated. The ascending aorta is moderately enlarged. The IVC is of normal diameter and collapses greater than 50% with a sniff. This suggests a low right atrial pressure of 3 mm Hg. Pericardium/ Pleura There is no pericardial effusion. There is no pleural effusion. MMode/2D Measurements & Calculations LVIDd: 5.0 cm LVOT diam: 2.1 cm LVIDs: 3.1 cm Ao root diam: 4.0 cm FS: 37.5 % asc Aorta Diam: 4.6 cm IVSd: 1.1 cm LVPWd: 0.71 cm LV sen. diameter/BSA (cm/m^2): 2.4 LV sys. diameter/BSA (cm/m^2): 1.5 LA A2 area: 14.5 cm2 RA long axis: 5.1 cm LA A4 area: 13.2 cm2 RA area: 13.4 cm2 LA length (vol): 4.4 cm RA vol: 30.1 ml LA vol: 37.2 ml RA : 14.3 ml/m2 LA vol index: 17.7 ml/m2 TAPSE: 2.3 cm Doppler Measurements & Calculations Ao V2 max: 136.0 cm/sec LVOT Max Álvaro: 115.5 cm/sec Ao V2 mean: 92.8 cm/sec LV V1 max P.3 mmHg Ao max P.4 mmHg LV V1 VTI: 22.9 cm Ao mean P.9 mmHg BRANDI(I,D): 2.9 cm2 Ao V2 VTI: 27.7 cm BRANDI(V,D): 3.0 cm2 sev ratio: 0.83 BRANDI indexed to BSA (cm^2/m^2): 1.4 MV E max álvaro: 43.5 cm/sec SV(LVOT): 79.7 ml MV A max álvaro: 56.1 cm/sec MV E/A: 0.78 Med Peak E' Álvaro: 6.9 cm/sec E/E' med: 6.3 Lat Peak E' Álvaro: 7.4 cm/sec E/E' lat: 5.9 E/e' average: 6.1 MV dec time: 0.49 sec Reading Physician:10:57 AM
--- NOTE | 2022-05-05 20:51 | P.HP_ITS ---
History of Present Illness History of Present Illness Date Patient Seen: 05/05/22 Time Patient Seen: 20:51 Chief complaint: Rt side face drooping, slurred speech 20 mins ago Narrative: Addy Fritz is an 82 y.o. male with a history of ampullary cancer in remission, BPH, and hypothyroidism was in his usual state of health, eating lunch when he noticed the right side of his face did not feel right. He noticed his speech was becoming garbled and had difficulty with word finding and that the episode lasted between 10-15 minutes. He denies headache, difficulty swallowing, shortness of breath, chest pain, nausea vomiting, dysuria however he states he has BPH, diarrhea or constipation. 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 Head CT, head and neck CTA and chest x-ray were all negative. MRI was also negative for any acute intracranial finding however it did have a finding of ? Loss of flow void in the left transverse sinus, sigmoid sinus, and partially visualized upper internal jugular vein suggestive of either thrombosis or more likely slow flow.?These vessels were widely patent on recent CT angiogram. He is afebrile, blood pressure 131/76, heart rate 57, respiratory rate 18, oxygen saturation 100% on room air, he weighs 86.1 kg with a BMI of 25. Is mildly anemic with a hemoglobin and hematocrit of 12.2 and 34.7 respectively, glucose is 115, troponin x2 are negative, UA is negative for UTI as well as the urine toxicology negative for any illegal substances, and COVID-19 PCR is negative. ? Patient History Medical History Adult hypothyroidism Ampullary carcinoma BPH (benign prostatic hyperplasia) BRCA1 gene mutation positive in male Fatigue Jaundice KEVIN (obstructive sleep apnea) Pruritus Surgical History H/O abdominal surgery H/O Whipple procedure History of cholecystectomy History of tonsillectomy Family & Social History Family History Sister Breast cancer in female Mother Breast cancer in female Unknown Breast cancer in female Father CVA (cerebral vascular accident) Social History: household members spouse Prior Living Arrangements House Safety & Behavioral: Feels Safe in Current Yes Environment Been Physically Hurt or No Threatened By a Person Tobacco & Substance use: Smoking Status Never smoker alcohol intake never Substance Use Type does not use Meds Home Medications and Allergies Home Medications Medication Instructions Recorded Confirmed Type MULTIVITAMIN/MINERALS (Thera M 1 tab PO Q DAY ##0 03/07/10 05/05/22 History Plus Tablet) levothyroxine 75 mcg tablet 88 mcg PO QDAY@0600 ##0 07/24/12 05/05/22 History (Synthroid) tamsulosin 0.4 mg capsule (Flomax) 0.8 mg PO QDAY ##0 10/12/16 05/05/22 History ascorbic acid (vitamin C) 500 mg 500 mg PO DAILY 12/24/20 05/05/22 History tablet (Vitamin C) cholecalciferol (vitamin D3) 125 125 mcg PO DAILY 12/24/20 05/05/22 History mcg (5,000 unit) tablet (Vitamin D3) finasteride 5 mg tablet 5 mg PO DAILY 12/24/20 05/05/22 History kyrkog-peqalnii-byylgcs 2 cap PO TID PRN Digestion 12/24/20 05/05/22 History 24,000-76,000-120,000 unit capsule,delayed rel (Creon) zinc 50 mg capsule 50 mg PO DAILY 12/24/20 05/05/22 History lysine 500 mg capsule 1,500 mg PO DAILY PRN Cold Sores 01/03/21 05/05/22 History melatonin 5 mg tablet 5 mg PO BEDTIME PRN Sleep 01/03/21 05/05/22 History Allergies Allergy/AdvReac Type Severity Reaction Status Date / Time propoxyphene [PROPOXYPHENE] Allergy Severe FACIAL Verified 01/03/21 11:45 SWELLING, RASH clindamycin [CLINDAMYCIN] Allergy Intermediate RASH AND Verified 01/03/21 11:45 C. DIFF omeprazole [From PRILOSEC] Allergy Unknown eye Verified 01/03/21 11:45 swelling sulfamethoxazole Allergy Unknown rash Verified 01/03/21 11:45 [From BACTRIM] sulfur dioxide Allergy Unknown rash Verified 01/03/21 11:45 [SULFUR DIOXIDE] trimethoprim [From BACTRIM] Allergy Unknown rash Verified 01/03/21 11:45 Review of Systems Review of Systems ROS: Yes All systems reviewed with the patient and are negative except as otherwise documented Exam Vital Signs (past 8 hours): - 05/05/22 13:48 05/05/22 13:45 05/05/22 14:03 Temperature 98.4 F Pulse Rate 63 76 67 Respiratory Rate 20 Blood Pressure 121/63 Pulse Oximetry 97 98 99 Oxygen Delivery Method Room Air Oxygen Flow Rate 05/05/22 14:20 05/05/22 14:20 05/05/22 14:30 Temperature Pulse Rate 63 Respiratory Rate 32 H Blood Pressure 121/63 118/64 Pulse Oximetry 98 Oxygen Delivery Method Oxygen Flow Rate 05/05/22 14:30 05/05/22 15:00 05/05/22 15:00 Temperature Pulse Rate 62 60 Respiratory Rate 31 H 21 Blood Pressure 124/69 Pulse Oximetry 98 98 Oxygen Delivery Method Oxygen Flow Rate 05/05/22 15:30 05/05/22 15:30 05/05/22 16:00 Temperature Pulse Rate 60 63 Respiratory Rate 16 Blood Pressure 130/67 Pulse Oximetry 99 98 Oxygen Delivery Method Oxygen Flow Rate 05/05/22 16:30 05/05/22 17:00 05/05/22 17:30 Temperature Pulse Rate 62 66 62 Respiratory Rate 17 23 20 Blood Pressure Pulse Oximetry 98 100 99 Oxygen Delivery Method Oxygen Flow Rate 05/05/22 17:39 05/05/22 17:39 05/05/22 18:00 Temperature Pulse Rate 64 62 Respiratory Rate 18 17 Blood Pressure 169/83 H Pulse Oximetry 99 99 Oxygen Delivery Method Oxygen Flow Rate 05/05/22 19:20 Temperature 98.5 F Pulse Rate 57 L Respiratory Rate 18 Blood Pressure 131/76 Pulse Oximetry 100 Oxygen Delivery Method Oxygen Flow Rate 0 Oxygen Delivery Method Room Air Oxygen Flow Rate 0 Narrative Exam Narrative: Gen: Alert, oriented, well-developed 82 y.o. male, appears comfortable HEENT: normocephalic, atraumatic, conjunctiva clear, sclera non-icteric, oral mucosa pink and moist Neck: supple, full ROM, no JVD, trachea is midline Resp: Lungs CTA, non-labored breathing CV: RRR, no murmur or rubs, no carotid bruits Abd: soft, non-tender, normoactive BTs Skin: no lesions or rashes, dry and intact Neuro: Alert and oriented X 4 w/no focal deficits. Speech clear and coherent. Extremities: moves all 4 extremities, is ambulatory, negative Marisa?s sign Psyche: normal mood and affect. Objective Labs Result Diagrams: 05/05/22 13:55 05/05/22 13:55 Labs: Laboratory Results - last 24 hr 05/05/22 05/05/22 05/05/22 13:55 13:55 13:55 WBC 4.5 RBC 3.62 L Hgb 12.2 L Hct 34.7 L MCV 95.9 MCH 33.8 MCHC 35.3 RDW 13.1 Plt Count 192 Neut % (Auto) 48.1 L Lymph % (Auto) 40.6 H [place] % (Auto) 9.2 Eos % (Auto) 1.1 L Baso % (Auto) 1.0 Neut # (Auto) 2100 Lymph # (Auto) 1800 [place] # (Auto) 400 Eos # (Auto) 100 Baso # (Auto) 0 PT 12.7 INR 1.1 APTT 31 Sodium 139 Potassium 4.3 Chloride 110 H Carbon Dioxide 24 BUN 24 H Creatinine 0.87 Estimated GFR > 60 BUN/Creatinine Ratio 27.6 H Glucose 115 H Calcium 8.6 Magnesium 2.1 Total Bilirubin 0.3 AST 26 ALT 22 Alkaline Phosphatase 70 Total Creatine Kinase 31 L CK-MB (CK-2) TNP CK-MB (CK-2) Rel Index TNP Troponin I < 0.012 Total Protein 6.5 Albumin 3.7 Globulin 2.8 Albumin/Globulin Ratio 1.3 Urine Color Urine Appearance Urine pH Ur Specific [place] Urine Protein Urine Glucose (UA) Urine Ketones Urine Occult Blood Urine Nitrate Urine Bilirubin Urine Urobilinogen Ur Leukocyte Esterase Urine RBC Urine WBC Urine Bacteria Ur Culture Indicated? Micro UA Comment U Opiates 300ng/mL cut Ur Oxycodone Screen Urine Methadone Screen Ur Barbiturates Screen U Tricyclic Antidepress Ur Phencyclidine Scrn Ur Amphetamines Screen U Methamphetamines Scrn Ur MDMA Scrn (Ecstasy) U Benzodiazepines Scrn Urine Cocaine Screen U Marijuana (THC) Screen SARS-CoV-2 (PCR) 05/05/22 05/05/22 05/05/22 14:00 16:08 16:08 WBC RBC Hgb Hct MCV MCH MCHC RDW Plt Count Neut % (Auto) Lymph % (Auto) [place] % (Auto) Eos % (Auto) Baso % (Auto) Neut # (Auto) Lymph # (Auto) [place] # (Auto) Eos # (Auto) Baso # (Auto) PT INR APTT Sodium Potassium Chloride Carbon Dioxide BUN Creatinine Estimated GFR BUN/Creatinine Ratio Glucose Calcium Magnesium Total Bilirubin AST ALT Alkaline Phosphatase Total Creatine Kinase CK-MB (CK-2) CK-MB (CK-2) Rel Index Troponin I Total Protein Albumin Globulin Albumin/Globulin Ratio Urine Color Yellow Urine Appearance Clear Urine pH 5.0 Ur Specific [place] 1.010 Urine Protein Negative Urine Glucose (UA) Negative Urine Ketones Negative Urine Occult Blood Negative Urine Nitrate Negative Urine Bilirubin Negative Urine Urobilinogen 0.2 Ur Leukocyte Esterase Negative Urine RBC None seen Urine WBC None seen Urine Bacteria None seen Ur Culture Indicated? Cult not indicated Micro UA Comment Microscopic normal U Opiates 300ng/mL cut Negative Ur Oxycodone Screen Negative Urine Methadone Screen Negative Ur Barbiturates Screen Negative U Tricyclic Antidepress Negative Ur Phencyclidine Scrn Negative Ur Amphetamines Screen Negative U Methamphetamines Scrn Negative Ur MDMA Scrn (Ecstasy) Negative U Benzodiazepines Scrn Negative Urine Cocaine Screen Negative U Marijuana (THC) Screen Negative SARS-CoV-2 (PCR) Negative Assessment & Plan Assessment & Plan narrative: Addy Fritz remains under observation in order to further work up a TIA. TIA, likely * Cardiac telemetry * NIH score greater than 5 []yes [X]no, NIH scoring and neuro checks q 4 hours * Dual antiplatelet therapy: No[X] Yes Aspirin 81 mg p.o. daily * MRI was negative * Complete Echo with bubble study for 05/06 * Left doppler U/S to assess occlusion or clot * PT/OT/ST evaluation Hypertension, isolated highest bp of 169/83, present on admission * He is currently normotensive with a bp of 131/76 Allow for permissive hypertension of 220/110 HR 60 to allow for brain perfusion HLD * Fasting lipid panel, pending for 0500 labs * Atorvastatin 40 mg po at bedtime Risk stratification * Fasting lipid panel pending for the morning * A1c is pending VTE Prophylaxis: Wells risk score 0 [X]Enoxaparin 40 mg subQ once daily Bilateral SCD, patient wears compression stockings X Patient is placed into observation as his stay is not expected to exceed 2 mi dnights. FEN: IV fluids: saline lock, diet: heart healthy, labs: CBC, C/BMP, liver enzymes, Mag, PT/INR Consultants None Dispo: unknown at this time Code status: Full code as discussed with the patient who identifies as Wilfrid Givens his surrogate and POA. [X] I have utilized all available immediate resources to obtain, update, or review of the patient's current medications COVID-19 COVID-19 status: Negative Result date/Date tested (Pos, Neg/Pending): 05/05/22 Time Spent With Patient Critical Care time: I spent a total of [] minutes of critical care time on this patient's care today; this time is exclusive of procedural time. Scores Wells' Criteria for PE Clinical signs and symptoms of DVT: No PE is #1 Dx or equally likely: No Heart rate > 100: No Immobilization at least 3 days or surg in previous 4 weeks: No History of PE or DVT: No Hemoptysis: No Malignancy w/Treatment within 6 months or palliative: No Wells' PE Score total: 0 Quality VTE Deep Vein Thrombosis/Pulmonary Embolism Present on Admission: No MIPS - Admit I confirm the patient?s Advance Care Plan is present, Code status is documented, Surrogate decision maker is in patient?s record [If Yes, STOP here]: Yes MIPS - DC The patient has current or prior documentation of left ventricular ejection fraction (LVEF) less than 40%, or moderate or severely depressed left ventricular systolic function.: No
[2022-05-05] MEDS: ATORVASTATIN 20 MG TABLET 40 MG PO (21:58)
[2022-05-05] MEDS: MELATONIN 3 MG TABLET 6 MG PO (22:21)
[2022-05-05 23:00] LABS: TSH w/ Reflex to FT4 3.96 uIU/mL (0.47-4.68)
[2022-05-05] MEDS: TAMSULOSIN 0.4 MG CAPSULE 0.8 MG PO (23:21)
[2022-05-06 02:00] VITALS: O2SAT 99
[2022-05-06 02:55] VITALS: BP 111/67; PULSE 76; RESP 15; TEMP 36.4; O2SAT 99
--- NOTE | 2022-05-06 04:08 | PC.NURSE ---
Addendum entered by Gretchen Vidal R.N. 05/06/22 04:11: Has been NSR 60s with BBB. Original Note: End of shift note. AAOX4, denies pain. Up to BR to void using urinal. SBA, unsteady gait. Bed alarm on. Plan is to have a cardiac echo and carotid duplex today and possibly discharge home with .
[2022-05-06 05:16] LABS: Add Manual Diff / Slide Review NO; Basophils Absolute Auto 0 /uL (0-100); Basophils Percent Auto 1.1 % (0-2); Eosinophils Absolute Auto 100 /uL (0-450); Eosinophils Percent Auto 1.6 % (2-4); Hematocrit 32.5 % (41-53); Hemoglobin 11.5 g/dL (13.5-17.5); Lymphocytes Absolute Auto 1700 /uL (1100-4500); Lymphocytes Percent Auto 39.4 % (25-40); Mean Corpuscular HGB Conc 35.4 % (30-36); Mean Corpuscular Hemoglobin 33.8 PG (26-34); Mean Corpuscular Volume 95.7 fL (80-100); Monocytes Absolute Auto 400 /uL (0-900); Monocytes Percent Auto 9.4 % (3-14); Neutrophils Absolute Auto 2100 /uL (1500-7000); Neutrophils Percent Auto 48.5 % (50-75); Platelet Count 167 X10^3/uL (150-400); White Blood Cell Count 4.3 X10^3/uL (4.5-11.0)
[2022-05-06 05:23] LABS: BUN Creatinine Ratio 28.8 (6-22); Blood Urea Nitrogen 23 mg/dL (9-20); Calcium 8.6 mg/dL (8.4-10.2); Carbon Dioxide 24 mmol/L (22-32); Chloride 111 mmol/L (98-107); Cholesterol 118 mg/dL (140-199); Estimated Glomerular Filt Rate > 60 mL/min (>60); Glucose 92 mg/dL (80-110); HDL Cholesterol 37 mg/dL (40-60); HEMOLYSIS < 15 (0-50); LDL Cholesterol Calculated 73 mg/dL (<100); Magnesium 2.2 mg/dL (1.6-2.3); Potassium 4.1 mmol/L (3.4-5.1); Sodium 139 mmol/L (137-145); Triglycerides 40 mg/dL (35-150)
[2022-05-06 05:37] LABS: Hemoglobin A1C% w Est Avg Glu 5.4 % (4.0-6.0)
[2022-05-06] MEDS: LEVOTHYROXINE 88 MCG TABLET PO (05:51)
[2022-05-06 06:03] LABS: TSH w/ Reflex to FT4 5.96 uIU/mL (0.47-4.68)
[2022-05-06 06:47] VITALS: O2SAT 98
[2022-05-06 06:47] LABS: Free T4, Direct Thyroxine 1.19 ng/dL (0.78-2.19)
[2022-05-06 07:25] VITALS: BP 120/59; PULSE 59; RESP 18; TEMP 36.4; O2SAT 99
[2022-05-06] MEDS: ASPIRIN EC 81 MG TABLET PO (09:00)
[2022-05-06] MEDS: FINASTERIDE 5 MG TABLET PO (09:01)
[2022-05-06 10:24] VITALS: O2SAT 99
[2022-05-06 11:00] VITALS: BP 120/65; PULSE 65; RESP 17; TEMP 36.3; O2SAT 99
--- NOTE | 2022-05-06 11:04 | PM.DS.1 ---
History of Present Illness History of Present Illness Date Patient Seen: 05/06/22 Time Patient Seen: 11:04 Chief complaint: Rt side face drooping, slurred speech 20 mins ago Narrative: EDITH Clement: Addy Fritz is an 82 y.o. male with a history of ampullary cancer in remission, BPH, and hypothyroidism was in his usual state of health, eating lunch when he noticed the right side of his face did not feel right. He noticed his speech was becoming garbled and had difficulty with word finding and that the episode lasted between 10-15 minutes. He denies headache, difficulty swallowing, shortness of breath, chest pain, nausea vomiting, dysuria however he states he has BPH, diarrhea or constipation. 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 Head CT, head and neck CTA and chest x-ray were all negative. MRI was also negative for any acute intracranial finding however it did have a finding of ?Loss of flow void in the left transverse sinus, sigmoid sinus, and partially visualized upper internal jugular vein suggestive of either thrombosis or more likely slow flow.?These vessels were widely patent on recent CT angiogram. He is afebrile, blood pressure 131/76, heart rate 57, respiratory rate 18, oxygen saturation 100% on room air, he weighs 86.1 kg with a BMI of 25. Is mildly anemic with a hemoglobin and hematocrit of 12.2 and 34.7 respectively, glucose is 115, troponin x2 are negative, UA is negative for UTI as well as the urine toxicology negative for any illegal substances, and COVID-19 PCR is negative. ? Discharge Providers Provider Date of admission: 05/05/22 17:35 Discharge Date: 05/06/22 Primary care physician: Nakita Linares PA-C Discharge provider: Darian Gallagher DO Summary Hospital Course Discharge Diagnosis: TIA Hypertension,? present on admission D Hospital Course: This is an 82-year-old male with a past medical history of hypertension hyperlipidemia was admitted with a TIA. Telemetry revealed no events over the course of his admission, an MRI was negative for an acute infarct. He had no further neurological symptoms after the initial event. Echocardiogram was performed which showed a normal ejection fraction, and no significant changes from his prior studies. There was no evidence of a PFO. Given his ABCD2 score, lifelong aspirin and statin therapy are recommended but Plavix was not necessary at this time. No changes to his chronic medications are otherwise needed at this time. Exam Vital Signs (past 8 hours): - 05/06/22 06:47 05/06/22 07:25 05/06/22 10:24 Temperature 97.6 F Pulse Rate 59 L Respiratory Rate 18 Blood Pressure 120/59 L Pulse Oximetry 98 99 99 Oxygen Delivery Method Room Air Room Air Oxygen Flow Rate 0 0 Oxygen Delivery Method Room Air Oxygen Flow Rate 0 Narrative Exam Narrative: Gen: Alert, oriented, well-developed 82 y.o. male, appears comfortable HEENT: normocephalic, atraumatic, conjunctiva clear, sclera non-icteric, oral mucosa pink and moist Neck: supple, full ROM, no JVD, trachea is midline Resp: Lungs CTA, non-labored breathing CV: RRR, no murmur or rubs, no carotid bruits Abd: soft, non-tender, normoactive BTs Skin: no lesions or rashes, dry and intact Neuro: Alert and oriented X 4 w/no focal deficits. Speech clear and coherent. Extremities: moves all 4 extremities, is ambulatory, negative Marisa?s sign Psyche: normal mood and affect. Objective Labs Result Diagrams: 05/06/22 05:00 05/06/22 05:00 Labs: Laboratory Results - last 24 hr 05/05/22 05/05/22 05/05/22 13:55 13:55 13:55 WBC 4.5 RBC 3.62 L Hgb 12.2 L Hct 34.7 L MCV 95.9 MCH 33.8 MCHC 35.3 RDW 13.1 Plt Count 192 Neut % (Auto) 48.1 L Lymph % (Auto) 40.6 H [place] % (Auto) 9.2 Eos % (Auto) 1.1 L Baso % (Auto) 1.0 Neut # (Auto) 2100 Lymph # (Auto) 1800 [place] # (Auto) 400 Eos # (Auto) 100 Baso # (Auto) 0 PT 12.7 INR 1.1 APTT 31 Sodium 139 Potassium 4.3 Chloride 110 H Carbon Dioxide 24 BUN 24 H Creatinine 0.87 Estimated GFR > 60 BUN/Creatinine Ratio 27.6 H Glucose 115 H Hemoglobin A1c Calcium 8.6 Magnesium 2.1 Total Bilirubin 0.3 AST 26 ALT 22 Alkaline Phosphatase 70 Total Creatine Kinase 31 L CK-MB (CK-2) TNP CK-MB (CK-2) Rel Index TNP Troponin I < 0.012 Total Protein 6.5 Albumin 3.7 Globulin 2.8 Albumin/Globulin Ratio 1.3 Triglycerides Cholesterol LDL Cholesterol, Calc HDL Cholesterol TSH Free T4 Urine Color Urine Appearance Urine pH Ur Specific [place] Urine Protein Urine Glucose (UA) Urine Ketones Urine Occult Blood Urine Nitrate Urine Bilirubin Urine Urobilinogen Ur Leukocyte Esterase Urine RBC Urine WBC Urine Bacteria Ur Culture Indicated? Micro UA Comment U Opiates 300ng/mL cut Ur Oxycodone Screen Urine Methadone Screen Ur Barbiturates Screen U Tricyclic Antidepress Ur Phencyclidine Scrn Ur Amphetamines Screen U Methamphetamines Scrn Ur MDMA Scrn (Ecstasy) U Benzodiazepines Scrn Urine Cocaine Screen U Marijuana (THC) Screen SARS-CoV-2 (PCR) 05/05/22 05/05/22 05/05/22 13:55 14:00 16:08 WBC RBC Hgb Hct MCV MCH MCHC RDW Plt Count Neut % (Auto) Lymph % (Auto) [place] % (Auto) Eos % (Auto) Baso % (Auto) Neut # (Auto) Lymph # (Auto) [place] # (Auto) Eos # (Auto) Baso # (Auto) PT INR APTT Sodium Potassium Chloride Carbon Dioxide BUN Creatinine Estimated GFR BUN/Creatinine Ratio Glucose Hemoglobin A1c Calcium Magnesium Total Bilirubin AST ALT Alkaline Phosphatase Total Creatine Kinase CK-MB (CK-2) CK-MB (CK-2) Rel Index Troponin I Total Protein Albumin Globulin Albumin/Globulin Ratio Triglycerides Cholesterol LDL Cholesterol, Calc HDL Cholesterol TSH 3.96 Free T4 Urine Color Urine Appearance Urine pH Ur Specific [place] Urine Protein Urine Glucose (UA) Urine Ketones Urine Occult Blood Urine Nitrate Urine Bilirubin Urine Urobilinogen Ur Leukocyte Esterase Urine RBC Urine WBC Urine Bacteria Ur Culture Indicated? Micro UA Comment U Opiates 300ng/mL cut Negative Ur Oxycodone Screen Negative Urine Methadone Screen Negative Ur Barbiturates Screen Negative U Tricyclic Antidepress Negative Ur Phencyclidine Scrn Negative Ur Amphetamines Screen Negative U Methamphetamines Scrn Negative Ur MDMA Scrn (Ecstasy) Negative U Benzodiazepines Scrn Negative Urine Cocaine Screen Negative U Marijuana (THC) Screen Negative SARS-CoV-2 (PCR) Negative 05/05/22 05/06/22 05/06/22 16:08 05:00 05:00 WBC 4.3 L RBC 3.40 L Hgb 11.5 L Hct 32.5 L MCV 95.7 MCH 33.8 MCHC 35.4 RDW 13.0 Plt Count 167 Neut % (Auto) 48.5 L Lymph % (Auto) 39.4 [place] % (Auto) 9.4 Eos % (Auto) 1.6 L Baso % (Auto) 1.1 Neut # (Auto) 2100 Lymph # (Auto) 1700 [place] # (Auto) 400 Eos # (Auto) 100 Baso # (Auto) 0 PT INR APTT Sodium 139 Potassium 4.1 Chloride 111 H Carbon Dioxide 24 BUN 23 H Creatinine 0.80 Estimated GFR > 60 BUN/Creatinine Ratio 28.8 H Glucose 92 Hemoglobin A1c Calcium 8.6 Magnesium 2.2 Total Bilirubin AST ALT Alkaline Phosphatase Total Creatine Kinase CK-MB (CK-2) CK-MB (CK-2) Rel Index Troponin I Total Protein Albumin Globulin Albumin/Globulin Ratio Triglycerides 40 Cholesterol 118 L LDL Cholesterol, Calc 73 HDL Cholesterol 37 L TSH Free T4 Urine Color Yellow Urine Appearance Clear Urine pH 5.0 Ur Specific [place] 1.010 Urine Protein Negative Urine Glucose (UA) Negative Urine Ketones Negative Urine Occult Blood Negative Urine Nitrate Negative Urine Bilirubin Negative Urine Urobilinogen 0.2 Ur Leukocyte Esterase Negative Urine RBC None seen Urine WBC None seen Urine Bacteria None seen Ur Culture Indicated? Cult not indicated Micro UA Comment Microscopic normal U Opiates 300ng/mL cut Ur Oxycodone Screen Urine Methadone Screen Ur Barbiturates Screen U Tricyclic Antidepress Ur Phencyclidine Scrn Ur Amphetamines Screen U Methamphetamines Scrn Ur MDMA Scrn (Ecstasy) U Benzodiazepines Scrn Urine Cocaine Screen U Marijuana (THC) Screen SARS-CoV-2 (PCR) 05/06/22 05/06/22 05:00 05:00 WBC RBC Hgb Hct MCV MCH MCHC RDW Plt Count Neut % (Auto) Lymph % (Auto) [place] % (Auto) Eos % (Auto) Baso % (Auto) Neut # (Auto) Lymph # (Auto) [place] # (Auto) Eos # (Auto) Baso # (Auto) PT INR APTT Sodium Potassium Chloride Carbon Dioxide BUN Creatinine Estimated GFR BUN/Creatinine Ratio Glucose Hemoglobin A1c 5.4 Calcium Magnesium Total Bilirubin AST ALT Alkaline Phosphatase Total Creatine Kinase CK-MB (CK-2) CK-MB (CK-2) Rel Index Troponin I Total Protein Albumin Globulin Albumin/Globulin Ratio Triglycerides Cholesterol LDL Cholesterol, Calc HDL Cholesterol TSH 5.96 H D Free T4 1.19 Urine Color Urine Appearance Urine pH Ur Specific [place] Urine Protein Urine Glucose (UA) Urine Ketones Urine Occult Blood Urine Nitrate Urine Bilirubin Urine Urobilinogen Ur Leukocyte Esterase Urine RBC Urine WBC Urine Bacteria Ur Culture Indicated? Micro UA Comment U Opiates 300ng/mL cut Ur Oxycodone Screen Urine Methadone Screen Ur Barbiturates Screen U Tricyclic Antidepress Ur Phencyclidine Scrn Ur Amphetamines Screen U Methamphetamines Scrn Ur MDMA Scrn (Ecstasy) U Benzodiazepines Scrn Urine Cocaine Screen U Marijuana (THC) Screen SARS-CoV-2 (PCR) PFS Medical History Adult hypothyroidism Ampullary carcinoma BPH (benign prostatic hyperplasia) BRCA1 gene mutation positive in male Fatigue Jaundice KEVIN (obstructive sleep apnea) Pruritus Surgical History H/O abdominal surgery H/O Whipple procedure History of cholecystectomy History of tonsillectomy Family History Sister Breast cancer in female Mother Breast cancer in female Unknown Breast cancer in female Father CVA (cerebral vascular accident) Social History household members: spouse Smoking Status: Never smoker alcohol intake: never substance use type: does not use Discharge Plan Discharge Plan Patient Disposition: Home Provider Discharge Comment: You were admitted to the hospital with a TIA. Started on medications for stroke prevention which will continue life long at this time. Please follow up with your primary care doctor in 1 -2 weeks. Discharge orders & Medications Prescriptions: New atorvastatin [Lipitor] 20 mg Tablet 40 mg PO BEDTIME 30 Days Qty: 30 0RF aspirin 81 mg Tablet,Delayed Release (Dr/Ec) 81 mg PO DAILY 30 Days Qty: 30 0RF Continued MULTIVITAMIN/MINERALS (Thera M Plus Tablet) 1 tab PO Q DAY Qty: 0 levothyroxine [Synthroid] 75 MCG tablet 88 mcg PO QDAY@0600 Qty: 0 tamsulosin [Flomax] 0.4 MG capsule,extended release 24hr 0.8 mg PO QDAY Qty: 0 ascorbic acid (vitamin C) [Vitamin C] 500 mg Tablet 500 mg PO DAILY finasteride 5 mg Tablet 5 mg PO DAILY zinc 50 mg Capsule 50 mg PO DAILY cholecalciferol (vitamin D3) [Vitamin D3] 125 mcg (5,000 unit) Tablet 125 mcg PO DAILY Creon 24,000-76,000 -120,000 unit Capsule,Delayed Release(Dr/Ec) 2 cap PO TID PRN (Reason: Digestion) lysine 500 mg Capsule 1,500 mg PO DAILY PRN (Reason: Cold Sores) melatonin 5 mg Tablet 5 mg PO BEDTIME PRN (Reason: Sleep) Follow up/Referrals: Nakita Linares PA-C [Primary Care Provider] - Diet/Activity/Treatments Diet: Diet as Tolerated Activity: As tolerated Visit Report/Discharge Packet Instructions: DI for Transient Ischemic Attack, Atorvastatin Discharge Data Primary Care Provider: Nakita Linares Attending Provider: Darian Gallagher VTE Deep Vein Thrombosis/Pulmonary Embolism Present on Admission: No
--- NOTE | 2022-05-06 12:19 | PC.NURSE ---
Pt dressed and ready for d/c home. Pt to be transported via pov with . Pt IV and tele removed. Discussed discharge instructions and answered questions. Provided pt with education about stroke s/s, TIA, and atorvastatin. Pt taken out via wheel chair by [facility].
--- NOTE | 2022-05-06 12:21 | CM.DANOTE ---
Patient is an 82 yo male who was admitted on 05/05/22 for Right side drooping/slurring. Pt has [facility] for insurance and his PCP is Nakita Linares. EMR was reviewed. Per MD, pt with hx of ampullary CA in remission and neuropathy at baseline and admitted for TIA workup with Echo and MRI. Per MD, pt seems back to baseline and no need for PT/OT/ST at this time and MRI negative and pending Echo pt likely stable for d/c today with no needs. SW met bedside with pt and spouse as Echo was just finishing and explained role and they confirm they live in [place] and both active and independent at baseline. Pt drives and does not typically use DME for ambulation and confirms his spouse is his DPOA and will transport at d/c. Both deny any concerns or needs and preference is home later today if stable. Both brief in their answers and looking forward to getting home. Plan: SW to follow for likely d/c to home via spouse POV later today pending Echo results. COREY Blair Discharge Planning/Care Management CM Discharge Assessment Start: 05/06/22 12:16 Freq: Status: Active Protocol: Document 05/06/22 12:16 BF (Rec: 05/06/22 12:21 BF [id number]) Discharge Planning Assessment Assigned Ply Cutter COREY Boyle DPOA/Assigned Designee Name judit Yuen Contact Information [phone] Advance Directives? Yes Advance Directives on File No History Provided By Patient,Significant Other, Medical Record Has Patient been admitted in last 30 No days? Prior Living Arrangements House Household Members spouse Type of transporation used prior to Drives own vehicle admit Independent with ADL's Yes Is patient alert and oriented? Yes Caregiver for Another No Barriers to Discharge No Discharge Plan Home Transportation Arrangement Spouse bedside and plans to transport Referrals Initiated None needed Whiteboard Updated in Patient Room with Yes name and ext. # of Ply Cutter Review Status In Process Please Provide Date Initial DC 05/06/22 Assessment Was Performed Next Review Type Continued Stay Review
== END 2022-05-06 12:16 | disposition home or self-care (01) ==
LOC: ED 17:04 → AC 17:37
PROVIDERS: Nurse Practitioner Family; Admitting Provider Internal Medicine; Emergency Provider Emergency Medicine; PCP Physician Assistant; Referring Provider Emergency Medicine; Visit Provider Internal Medicine
DX: G45.9 Transient cerebral ischemic attack, unspecified (principal); R29.700 NIHSS score 0; I10 Essential (primary) hypertension; E78.5 Hyperlipidemia, unspecified; E03.9 Hypothyroidism, unspecified; N40.0 Benign prostatic hyperplasia without lower urinary tract symptoms; G62.9 Polyneuropathy, unspecified; Z20.822 Contact with and (suspected) exposure to COVID-19
CPT/HCPCS: 36415; 70450; 70496; 70498; 70551; 71045; 80048; 80053; 80061; 80305; 81001; 82550; 83036; 83735; 84439; 84443; 84484; 85025; 85610; 85730; 87635; 93005; 93010; 93306; 99285; C9803; G0378; Q9967

== ENCOUNTER → 2022-05-14 09:55 | Outpatient (CLI) | payer OTHER, SELFPAY ==
[2022-05-05 17:51] VITALS: BMI 25.0
--- NOTE | 2022-05-14 | DI.US.S_ITS ---
PROCEDURE: US THYROID INDICATIONS: THYROID NODULE TECHNIQUE: Real-time scanning was performed of the thyroid gland, with image documentation. COMPARISON: None. FINDINGS: Right: 4.7 x 1.1 x 0.9 centimeters Left: 4.0 x 0.8 x 0.6 centimeters. Isthmus: 1.5 millimeters At the area of palpable abnormality, submandibular glands are present, without sonographic abnormality. IMPRESSION: At the area of palpable abnormality, submandibular glands are present without obvious sonographic abnormality. The thyroid is slightly smaller than expected. No actionable thyroid nodules. Dictated by: Corey Barr M.D. on 05/14/2022 at 16:14 Approved by: Corey Barr M.D. on 05/14/2022 at 16:16
== END ==
PROVIDERS: PCP Physician Assistant; Referring Provider Physician Assistant; Visit Provider Physician Assistant
DX: E04.1 Nontoxic single thyroid nodule (principal)
CPT/HCPCS: 76536

== ENCOUNTER → 2022-09-05 11:25 | Outpatient (CLI) | payer OTHER, SELFPAY ==
[2022-05-05 17:51] VITALS: BMI 25.0
--- NOTE | 2022-09-05 11:26 | DI.CT.S_ITS ---
PROCEDURE: CT CHEST ABD PEL W CON INDICATIONS: pancreatic cancer TECHNIQUE: After the administration of oral and intravenous contrast, axial sections acquired from the supraclavicular neck to the pubic symphysis. Coronal and sagittal reformats were performed. For radiation dose reduction, the following was used: automated exposure control, adjustment of mA and/or kV according to patient size. COMPARISON: [facility], MR, MR ABDOMEN WO/W CON, 02/17/2022, 12:48. [facility], CT, CT CHEST ABD PEL W CON, 10/24/2021, 13:23. [facility], CT, CT CHEST ABD PEL W CON, 08/26/2021, 13:50. FINDINGS: Image quality: Excellent. CHEST: Lower Neck: No enlarged lymph nodes. Thyroid: Thyroid appears diminutive. Axillae: No enlarged lymph nodes. Chest Wall: Right chest Port-A-Cath is seen with catheter tip in the superior vena cava. Mild bilateral gynecomastia. Lungs and Airways: Mild centrilobular emphysema. Stable 6 mm possibly cavitary lesion at the posterior left lung base (264/3). Stable 6 mm ground-glass nodule in the right lung apex (52/3). No suspicious new pulmonary nodule. Pleura: No pneumothorax or pleural effusions. Heart: Heart size is normal. No pericardial effusion. Moderate coronary artery calcifications. Thoracic Vessels: Ascending thoracic aorta measures approximately 4.5 x 4.4 cm in diameter at the level of the right pulmonary artery. Moderate aortic atherosclerotic calcifications. Mediastinum and Sherry: No enlarged lymph nodes. Stable small calcified mediastinal lymph nodes. Esophagus: No wall thickening. No hiatal hernia. ABDOMEN: Liver: No focal hepatic mass identified. Gallbladder: Status post cholecystectomy. Biliary ducts: No intrahepatic or extrahepatic biliary ductal dilatation. Pancreas: Postsurgical changes are seen from prior pancreatic head resection. Cystic appearance of the body and tail of the pancreas does not appear significantly changed when compared to the MRI from 02/17/2022. No significant ductal dilatation is seen. Spleen: Multiple coarse calcifications are seen related to prior granulomatous disease. Adrenal Glands: Unremarkable. Kidneys and Ureters: Unremarkable. Stomach and Bowel: Multiple diverticula are seen in the colon without signs of acute diverticulitis. Postsurgical changes are seen in the stomach with patent anastomosis. Peritoneum: No abnormal intraperitoneal fluid. No free air. Slightly simon appearance of the small bowel mesentery is seen. Ventral Wall: Small fat containing periumbilical hernia. Abdominal Nodes: No retroperitoneal or mesenteric adenopathy by size criteria. Vessels: Aorta and inferior vena cava are normal in size. PELVIS: Pelvic Organs: Prostate is enlarged. Bladder: Unremarkable. Pelvic Nodes: No enlarged lymph nodes. Miscellaneous: No inguinal hernias are seen. Bones: No suspicious osteolytic or osteoblastic lesion identified. IMPRESSION: 1. Stable postsurgical changes from prior Whipple procedure. Multiple cysts within the pancreatic body and tail do not appear significantly changed when compared to the prior MRI from 02/17/2022, but are not as well evaluated on CT. Recommend continued MRI follow-up. 2. Simon appearance of the small bowel mesentery does not appear significantly changed when compared to prior MRI or CT. 3. No bulky lymphadenopathy in the chest, abdomen, or pelvis. 4. Stable small pulmonary nodules. 5. Ascending thoracic aorta measures up to 4.5 cm in diameter, not significantly changed. 6. Prostatomegaly. Approved by: Ketan Myers M.D. on 09/05/2022 at 16:37
== END ==
PROVIDERS: PCP Physician Assistant; Referring Provider Internal Medicine Hematology & Oncology; Visit Provider Internal Medicine Hematology & Oncology
DX: C24.1 Malignant neoplasm of ampulla of Vater (principal); R91.8 Other nonspecific abnormal finding of lung field; K86.2 Cyst of pancreas; N40.0 Benign prostatic hyperplasia without lower urinary tract symptoms; I77.89 Other specified disorders of arteries and arterioles
CPT/HCPCS: 71260; 74177; Q9967

== ENCOUNTER → 2023-03-02 12:48 | Outpatient (CLI) | payer MEDICARE, SELFPAY ==
[2022-05-05 17:51] VITALS: BMI 25.0
--- NOTE | 2023-03-02 12:50 | DI.CT.S_ITS ---
PROCEDURE: CT CHEST ABD PEL W CON INDICATIONS: cancer of ching ampulla of Vater TECHNIQUE: After the administration of oral and intravenous contrast, axial sections acquired from the supraclavicular neck to the pubic symphysis. Coronal and sagittal reformats were performed. For radiation dose reduction, the following was used: automated exposure control, adjustment of mA and/or kV according to patient size. COMPARISON: [facility], CT, CT CHEST ABD PEL W CON, 09/05/2022, 13:17. FINDINGS: Image quality: 09/05/2022 Lungs and pleura: Scattered scarring and atelectasis. No new or enlarging nodules. No airspace disease. No pleural effusions. Small nodules are stable. For example on the left. Mediastinum, heart, and esophagus: No hiatal hernia. Coronary calcifications. A right port catheter terminates in the lower SVC. No pathologic adenopathy by size criteria. Calcified mediastinal lymph nodes again seen. Ectatic ascending aorta as before. Chest wall and thyroid: Unremarkable. Gynecomastia. Solid organs: No suspicious focal liver lesion. No pathologic biliary ductal dilation. Post Whipple changes and small pancreatic cystic lesions, grossly similar prior, but difficult to evaluate on this study. Consider MRI for follow-up if indicated. The pancreatic parenchyma is atrophic as before. Numerous splenic granulomas again seen. No focal adrenal nodule. No hydronephrosis. Ectatic renal pelvis and ureters, possibly secondary to distended bladder. Vessels and lymph nodes: No abdominal aortic aneurysm. There are atherosclerotic calcifications. No pathologic adenopathy by size criteria. 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 No evidence of bowel obstruction or pathologic ascites. There are colonic diverticula. Please correlate with age-appropriate colonoscopy results. Body wall: Tiny fat containing umbilical hernia, possibly containing also congested omentum. Pelvis: Distended bladder, with small diverticula and trabeculations, likely secondary to chronic obstruction. The prostate is heterogeneous and enlarged, not well evaluated on CT. Bones: Degenerative changes, no acute or suspicious osseous finding. IMPRESSION: No new or enlarging disease in the chest, abdomen, or pelvis. Status post Whipple procedure. Atrophic pancreatic parenchyma, with small cystic lesions, better assessed on prior MRI. Multiple stable and incidental findings above. Dictated by: Corey Barr M.D. on 03/02/2023 at 15:25 Approved by: Corey Barr M.D. on 03/02/2023 at 15:34
== END ==
PROVIDERS: PCP Physician Assistant; Referring Provider Internal Medicine Hematology & Oncology; Visit Provider Internal Medicine Hematology & Oncology
DX: C24.1 Malignant neoplasm of ampulla of Vater (principal); I25.10 Atherosclerotic heart disease of native coronary artery without angina pectoris; R91.8 Other nonspecific abnormal finding of lung field; I77.810 Thoracic aortic ectasia; N62 Hypertrophy of breast; K57.90 Diverticulosis of intestine, part unspecified, without perforation or abscess without bleeding; N32.89 Other specified disorders of bladder; N32.3 Diverticulum of bladder; Z15.01 Genetic susceptibility to malignant neoplasm of breast; Z15.03 Genetic susceptibility to malignant neoplasm of prostate; Z15.09 Genetic susceptibility to other malignant neoplasm; Z95.828 Presence of other vascular implants and grafts
CPT/HCPCS: 71260; 74177; Q9967

== ENCOUNTER → 2023-08-11 13:41 | Outpatient (CLI) | payer OTHER, SELFPAY ==
[2022-05-05 17:51] VITALS: BMI 25.0
[2023-08-11 14:08] LABS: Add Manual Diff / Slide Review NO; Basophils Absolute Auto 100 /uL (0-100); Eosinophils Absolute Auto 100 /uL (0-450); Eosinophils Percent Auto 1.1 % (2-4); Hematocrit 38.2 % (41-53); Hemoglobin 13.2 g/dL (13.5-17.5); Lymphocytes Absolute Auto 1300 /uL (1100-4500); Lymphocytes Percent Auto 25.7 % (25-40); Mean Corpuscular HGB Conc 34.5 % (30-36); Mean Corpuscular Hemoglobin 33.7 PG (26-34); Mean Corpuscular Volume 97.7 fL (80-100); Monocytes Absolute Auto 400 /uL (0-900); Monocytes Percent Auto 7.9 % (3-14); Neutrophils Absolute Auto 3200 /uL (1500-7000); Neutrophils Percent Auto 64.3 % (50-75); Platelet Count 171 X10^3/uL (150-400); Red Blood Cell Count 3.91 X10^6/uL (4.5-5.9); White Blood Cell Count 4.9 X10^3/uL (4.5-11.0)
[2023-08-11 14:21] LABS: Alanine Aminotransferase 54 IU/L (<50); Albumin 4.2 g/dL (3.5-5.0); Albumin Globulin Ratio 1.4 (1.0-2.8); Alkaline Phosphatase 74 U/L (38-126); Aspartate Aminotransferase 43 IU/L (17-59); BUN Creatinine Ratio 24.7 (6-22); Bilirubin Total 0.7 mg/dL (0.2-1.3); Blood Urea Nitrogen 22 mg/dL (9-20); Calcium 9.5 mg/dL (8.4-10.2); Carbon Dioxide 28 mmol/L (22-32); Chloride 106 mmol/L (98-107); Estimated Glomerular Filt Rate > 60 mL/min (>60); Glucose 94 mg/dL (80-110); HEMOLYSIS < 15 (0-50); Potassium 4.3 mmol/L (3.4-5.1); Sodium 138 mmol/L (137-145); Total Protein 7.2 g/dL (6.3-8.2)
[2023-08-12 07:23] LABS: Cancer (Carbohydrate) Ag 19-9 31 U/mL (0-35)
== END ==
PROVIDERS: PCP Physician Assistant; Referring Provider Internal Medicine Hematology & Oncology; Visit Provider Internal Medicine Hematology & Oncology
DX: C24.1 Malignant neoplasm of ampulla of Vater (principal)
CPT/HCPCS: 36415; 80053; 85025; 86301

== ENCOUNTER → 2023-08-18 08:56 | Outpatient (CLI) | payer OTHER, SELFPAY ==
[2022-05-05 17:51] VITALS: BMI 25.0
--- NOTE | 2023-08-18 08:57 | DI.CT.S_ITS ---
PROCEDURE: CT CHEST ABD PEL W CON INDICATIONS: cancer of the ampulla TECHNIQUE: After the administration of oral and intravenous contrast, axial sections acquired from the supraclavicular neck to the pubic symphysis. Coronal and sagittal reformats were performed. For radiation dose reduction, the following was used: automated exposure control, adjustment of mA and/or kV according to patient size. COMPARISON: [facility], MR, MR ABDOMEN WO/W CON, 02/17/2022, 12:48. [facility], CT, CT CHEST ABD PEL W CON, 03/02/2023, 14:31. FINDINGS: Image quality: Excellent. CHEST: Lower Neck: No enlarged lymph nodes. Thyroid: Unremarkable. Axillae: No enlarged lymph nodes. Chest Wall: Right-sided port with the catheter tip at the lower 3rd of the SVC. Filling defect in the right jugular vein measuring 1.7 cm, (3/21). Lungs and Airways: No acute airspace opacity. Left lower lobe ground-glass pulmonary nodule measuring 0.4 cm, (6/249), unchanged. Central airways are clear. [id number] emphysematous change. Pleura: No pneumothorax or pleural effusions. Heart: Heart size is normal. Moderate coronary artery calcifications. No pericardial effusion. Thoracic Vessels: The aorta and pulmonary arteries demonstrate normal size. No central pulmonary embolism. Mediastinum and Sherry: No enlarged lymph nodes. Esophagus: No wall thickening. No hiatal hernia. ABDOMEN: Liver: No focal lesion. Gallbladder: Absent. Biliary ducts: No biliary dilation. Trace pneumobilia. Pancreas: Atrophic. Small cysts in the tail the pancreas measuring 1.4 cm, (2/65); and 1.5 cm, (2/64), similar. Additional cyst seen on prior MRI 02/17/2022. Spleen: Size is within normal limits. Calcified granulomas. Adrenal Glands: No adrenal nodules. Kidneys and Ureters: No hydronephrosis. No solid mass. No complex renal cystic lesion which requires follow up. Stomach and Bowel: Prominent stool in the colon. The appendix is not identified. No small bowel obstruction. Stomach is within normal limits. Peritoneum: No abnormal intraperitoneal fluid. No free air. Ventral Wall: No hernia. Abdominal Nodes: No retroperitoneal or mesenteric adenopathy by size criteria. Vessels: Aorta and inferior vena cava are normal in size. No filling defect in the portal vein. PELVIS: Pelvic Organs: Prostatomegaly. Trace free fluid in the pelvis. Bladder: Probable bladder diverticulum. Pelvic Nodes: No enlarged lymph nodes. Miscellaneous: No inguinal hernias are seen. Bones: No aggressive appearing lesion. Right 2nd rib sclerotic focus, (2/6). Bridging vertebral body osteophytes in the thoracic spine consistent with DISH. No compression fracture. Multilevel DDD. IMPRESSION: 1. No significant findings in the lungs. 2. Right-sided port. 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 3. No focal hepatic lesion. No adenopathy. 4. Small cysts in the pancreas are again seen. Overall the pancreas has a similar appearance. 5. Trace nonspecific free fluid in the pelvis. Comment: Findings were discussed with oncology triage nurse at time of dictation. Dictated by: Tate Nielsen M.D. on 08/18/2023 at 11:04 Approved by: Tate Nielsen M.D. on 08/18/2023 at 11:30
== END ==
PROVIDERS: PCP Physician Assistant; Referring Provider Internal Medicine Hematology & Oncology; Visit Provider Internal Medicine Hematology & Oncology
DX: C24.1 Malignant neoplasm of ampulla of Vater (principal); K86.2 Cyst of pancreas; Z95.828 Presence of other vascular implants and grafts
CPT/HCPCS: 71260; 74177; Q9967

== ENCOUNTER → 2024-04-25 13:59 | Outpatient (CLI) | payer OTHER, SELFPAY ==
[2022-05-05 17:51] VITALS: BMI 25.0
== END ==
PROVIDERS: PCP Physician Assistant; Visit Provider Physician Assistant Medical
DX: M54.50 Low back pain, unspecified (principal)
CPT/HCPCS: 87086

== ENCOUNTER → 2024-05-02 16:39 | Outpatient (CLI) | payer OTHER, SELFPAY ==
[2022-05-05 17:51] VITALS: BMI 25.0
== END ==
PROVIDERS: PCP Physician Assistant; Visit Provider Nurse Practitioner Family
DX: R30.0 Dysuria (principal)
CPT/HCPCS: 87086

== ENCOUNTER → 2024-05-03 14:37 | Outpatient (CLI) | payer OTHER, SELFPAY ==
[2022-05-05 17:51] VITALS: BMI 25.0
--- NOTE | 2024-05-03 14:39 | DI.RAD.S_ITS ---
PROCEDURE: XR LUMBAR SPINE 2-3V INDICATIONS: BACK PAIN TECHNIQUE: 3 views of the lumbar spine were acquired. COMPARISON: None. FINDINGS: Bones: 5 [id number] vertebrae are present. There is normal bony alignment. Degenerative endplate changes and loss of disc height at L4-5 and L5-S1 levels are seen. Bilateral facet arthrosis at these levels also noted. No vertebral body compression fractures. No suspicious bony lesions. Soft tissues: Overlying bowel gas pattern is normal. No suspicious soft tissue calcifications. IMPRESSION: [id number] degenerative disc disease in lower lumbar spine. No acute lumbar spine vertebral body compression fracture. Dictated by: Gurmeet Tapia M.D. on 05/03/2024 at 18:21 Approved by: Gurmeet Tapia M.D. on 05/03/2024 at 18:22
== END ==
LOC: RAD 14:38
PROVIDERS: PCP Physician Assistant; Referring Provider Internal Medicine; Visit Provider Internal Medicine
DX: M51.36 Other intervertebral disc degeneration, lumbar region (principal); M51.37 Other intervertebral disc degeneration, lumbosacral region; M47.816 Spondylosis without myelopathy or radiculopathy, lumbar region; M47.817 Spondylosis without myelopathy or radiculopathy, lumbosacral region; M54.50 Low back pain, unspecified
CPT/HCPCS: 72100

== ENCOUNTER → 2024-06-16 15:11 | Outpatient (CLI) | payer OTHER, SELFPAY ==
[2022-05-05 17:51] VITALS: BMI 25.0
--- NOTE | 2024-06-16 15:12 | DI.US.S_ITS ---
PROCEDURE: US SCROTUM INDICATIONS: SWELLING OF RT TESTICLE TECHNIQUE: Real-time scanning was performed of the scrotum and testicles, with image documentation. Color and pulse Doppler interrogation was performed of both testicles. COMPARISON: None. FINDINGS: Right: Testicle is normal in size at 3.3 x 2.4 x 3.1 cm, and homogenous in echotexture. Epididymis is normal in overall size and morphology. No hydrocele or varicoceles. Overlying scrotal skin is normal in thickness. Left: Testicle is normal in size at 3.6 x 1.9 x 3.1 cm, and homogeneous in echotexture. Epididymis is normal in overall size and morphology. No hydrocele or varicoceles. Overlying scrotal skin is normal in thickness. Doppler: Color and pulse Doppler demonstrate normal and symmetric arterial flow in both testicles. Bilateral rete teste cysts noted. Bilateral hydroceles greater on the right. Right-sided varicocele measures up to 3 mm diameter IMPRESSION: Large right hydrocele with smaller left sided hydrocele. Bilateral rete teste cysts Approved by: Kashif Bettencourt M.D. on 06/16/2024 at 18:45
== END ==
LOC: US 15:11
PROVIDERS: PCP Physician Assistant; Referring Provider Physician Assistant; Visit Provider Physician Assistant
DX: N50.89 Other specified disorders of the male genital organs (principal); N43.3 Hydrocele, unspecified; N44.2 Benign cyst of testis
CPT/HCPCS: 76870

== ENCOUNTER 2024-07-10 16:10 | Emergency (ER) | payer OTHER, SELFPAY ==
[2022-05-05 17:51] VITALS: BMI 25.0
[2024-07-10 16:12] VITALS: BP 156/70; PULSE 75; RESP 18; TEMP 37.2; O2SAT 99; BMI 21.7
--- NOTE | 2024-07-10 16:46 | ED_ITS ---
<Statement entered by Darian Rivas, - 07/10/24 17:22> Dr. Rivas: I was immediately available in the department for consultation. Documentation has been reviewed. I agree with assessment and plan. HPI - Back Pain/Injury General Chief Complaint: Back Pain/Injury Stated Complaint: back ache, hx back fracture Time Seen by Provider: 07/10/24 16:12 Source: patient History of Present Illness HPI Narrative: Patient is a very pleasant 84-year-old male presents to the emergency room department today with his . Complaining of bilateral paraspinal lower lumbar pain. April of this year the patient had lower back pain, discomfort and had an x-ray that showed that he had degenerative joint disease, and he had some flattening in the lower lumbar area but no compression fractures. He was then seen by his oncologist who did a CT scan that showed that he had an L2 compression fracture. Unfortunately, his CT scan showed some abnormalities associated with his prostate, and he is supposed to undergo a biopsy this coming Thursday with concerns of prostate cancer, he recently had a PET scan, he is currently being followed by an oncologist. The patient presents today because yesterday he was out in the yard, he mowed the front lawn which she usually does not do, he also was in the storage shed and had him move several boxes and some equipment tickets the mower out. This morning he woke up with some lower lumbar stiffness worse than normal and presents to the emergency room department because the Tylenol that he is currently taking does not seem to be controlling the discomfort and pain. He has also been using lidocaine which does not seem to be helping as much as it usually does as well. Patient denies radiculopathy symptoms or any red flag symptoms today. He has no other further complaints. Patient walks with a cane. His is with him, and she is driving. Related Data Home Medications Medication Instructions Recorded Confirmed MULTIVITAMIN/MINERALS (Thera M 1 tab PO Q DAY ##0 03/07/10 06/20/24 Plus Tablet) tamsulosin 0.4 mg capsule (Flomax) 0.8 mg PO QDAY ##0 10/12/16 06/20/24 ascorbic acid (vitamin C) 500 mg 500 mg PO DAILY 12/24/20 06/20/24 tablet (Vitamin C) cholecalciferol (vitamin D3) 125 125 mcg PO DAILY 12/24/20 06/20/24 mcg (5,000 unit) tablet (Vitamin D3) finasteride 5 mg tablet 5 mg PO DAILY 12/24/20 06/20/24 [id number] 2 cap PO TID PRN Digestion 12/24/20 06/20/24 24,000-76,000-120,000 unit capsule,delayed rel (Creon) zinc 50 mg capsule 50 mg PO DAILY 12/24/20 06/20/24 lysine 500 mg capsule 1,500 mg PO DAILY PRN Cold Sores 01/03/21 06/20/24 melatonin 5 mg tablet 5 mg PO BEDTIME PRN Sleep 01/03/21 06/20/24 aspirin 81 mg tablet 81 mg PO DAILY 09/01/22 06/20/24 atorvastatin 40 mg tablet 40 mg PO DAILY 09/01/22 06/20/24 levothyroxine 112 mcg tablet 112 mcg PO DAILY 06/20/24 06/20/24 Previous Rx's Medication Instructions Recorded lidocaine HCl 2 % mucosal solution 1 applic mucous membrane DAILY PRN 12/18/23 (Lidocaine Viscous) pain #100 mL hydrocortisone 1 % topical cream 1 applic topical TID PRN itching 06/01/24 (Cortisone (hydrocortisone)) #28.35 grams tramadol 50 mg tablet 50 mg PO Q8H pain #16 tabs 07/10/24 Allergies Allergy/AdvReac Type Severity Reaction Status Date / Time propoxyphene [PROPOXYPHENE] Allergy Severe FACIAL Verified 06/20/24 08:18 SWELLING, RASH clindamycin [CLINDAMYCIN] Allergy Intermediate RASH AND Verified 06/20/24 08:18 C. DIFF omeprazole [From PRILOSEC] Allergy Unknown eye Verified 06/20/24 08:18 swelling sulfamethoxazole Allergy Unknown rash Verified 06/20/24 08:18 [From BACTRIM] sulfur dioxide Allergy Unknown rash Verified 06/20/24 08:18 [SULFUR DIOXIDE] trimethoprim [From BACTRIM] Allergy Unknown rash Verified 06/20/24 08:18 Review of Systems Review of Systems Narrative: Negative except as above Musculoskeletal Comments: Back pain with no recent injury, trauma or fall Patient History Medical History Weight loss Left-sided thoracic back pain Osteoarthritis Sleep apnea (~2007) Peripheral neuropathy (~2020) Mumps Measles Chicken pox Tinnitus Hearing loss (~2000) Cataracts, bilateral (~2020) History of elevated PSA (~2013) Hypothyroidism (~2009) Peripheral vascular disease Pancreatic cancer (~2019) TIA (transient ischemic attack) (~2022) Oral thrush Ampullary carcinoma Jaundice Fatigue Pruritus 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) KEVIN (obstructive sleep apnea) BPH (benign prostatic hyperplasia) (~2013) Adult hypothyroidism Surgical History Anesthesia H/O Whipple procedure H/O abdominal surgery (~10/2020) History of cholecystectomy History of tonsillectomy (~1945) Family History Sister Breast cancer in female Dementia Mother Breast cancer in female Unknown Breast cancer in female Father CVA (cerebral vascular accident) Hypertension Brother History of heart disease Social History household members: spouse Smoking Status: Never smoker alcohol intake: never substance use type: does not use Smoking Status: Never smoker Substance Use Type: does not use Exam Initial Vital Signs Initial Vital Signs: Vital Signs Temperature 98.9 F 07/10/24 16:12 Pulse Rate 75 07/10/24 16:12 Respiratory Rate 18 07/10/24 16:12 Blood Pressure 156/70 H 07/10/24 16:12 Pulse Oximetry 99 07/10/24 16:12 Oxygen Delivery Method Room Air 07/10/24 16:12 Reviewed Const General: cooperative, healthy appearing, comfortable, well developed, well groomed, No acute distress, in distress and No anxious Eyes General: Yes appearance normal, both eyes and all related structures Pupils: PERRL EOM: EOM intact bilaterally Back/Spine/Pelvis Back: normal to inspection, back tenderness and No CVA tenderness Thoracic/Lumbar Spine: thoracic and lumbar spine normal to inspection, bend over test abnormal, pain with thoraco-lumbar ROM, paraspinal tenderness, thoraco- lumbar ROM limited, thoraco-lumbar spasm, No thoracic spinal tenderness and lumbar spinal tenderness Skin Other: Warm pink and dry Neuro Other: Cranial nerves are grossly intact Patient denies rectal numbness, testicular or penile numbness Patient self caths twice a day Extrem Other: Patient walks with a cane, mildly unstable due to advanced age and deconditioning. Range of motion is mildly decreased in the lower extremities due to discomfort and pain. Psych Other: Parents, mental status, speech, mood, affect, attitude, thought process content and judgment are intact. His movement is mildly decreased in slow due to advanced age, an underlying medical issues. Scores GCS Citation: 15 Course Vital Signs Vital signs: Vital Signs - 8 hr 07/10/24 16:12 Temperature 98.9 F Pulse Rate 75 Respiratory Rate 18 Blood Pressure 156/70 H Pulse Oximetry 99 Oxygen Delivery Method Room Air Reviewed MDM - Back Pain/Injury MDM Narrative Medical decision making narrative: Pleasant 84-year-old male presents with mechanical back pain, patient mowed the lawn, and move stuff in the storage unit yesterday now has an increasing discomfort and pain. History of chronic back pain, patient had x-ray in April this year showed that he has some flattening of the disc in the lower lumbar, then had a CT scan shows that he has not L2 fracture compression, not burst, currently being evaluated for prostate cancer, recently had a PET scan unknown findings do it he had this done [place]. Currently scheduled for a biopsy this coming Thursday. Currently taking Tylenol and using lidocaine for his discomfort and pain it is helping but not really relieving the discomfort and pain he is having difficulty doing activities of daily living. Patient presented for pain relief. No red flags Prescription is sent to the pharmacy Supportive therapy education ED precautions Educated on medication, educated on bowel protocol, educated on sedated properties of medications Educated on mobility issues associated with the medications and being careful Instructed not to drink, drive, operate power equipment or tools. Instructed not to take the medication 24 hours prior to his biopsy take Tylenol only Follow up with his primary Care doctor follow up with his oncologist Return to the emergency department as needed Differential diagnosis acute exacerbation of chronic lower lumbar pain, known L2 compression fracture, myofascial acute paraspinal musculoskeletal pain. Discharge Plan Departure Patient Disposition: Home Clinical Impression: Bilateral myofascial pain Acute lumbosacral myofascial strain Qualifiers: Encounter type: initial encounter Qualified Code(s): S39.012A - Strain of muscle, fascia and tendon of lower back, initial encounter Activity Restrictions/Additional Instructions: No drinking, driving, operating power equipment with the prescription No tramadol 24 hours before your biopsy on Thursday Tylenol before your biopsy on Thursday Please take a stool softener such as MiraLax, docusate, Colace when you start the tramadol Try the tramadol and see how you feel on biggest side effect is going to be sedation please be careful getting up, walking, make sure that she sit on the side of the bed if you need to get up and go to the bathroom in the middle of the night to get her bearings. Please discuss your pain with your oncologist Please ask your oncologist to go over the results of all your tests Follow up with her primary care doctor as needed Continue with the topical preparations Continue with the Tylenol in conjunction with the tramadol. Prescriptions: New tramadol 50 mg tablet 50 mg PO Q8H Qty: 16 0RF No Action lidocaine HCl [Lidocaine Viscous] 2 % solution 1 applic mucous membrane DAILY PRN (Reason: pain) Qty: 100 0RF Rx Instructions: May use as needed for oral pain hydrocortisone [Cortisone (hydrocortisone)] 1 % cream 1 applic topical TID PRN (Reason: itching) Qty: 28.35 0RF MULTIVITAMIN/MINERALS (Thera M Plus Tablet) 1 tab PO Q DAY Qty: 0 tamsulosin [Flomax] 0.4 MG capsule,extended release 24hr 0.8 mg PO QDAY Qty: 0 levothyroxine 112 mcg tablet 112 mcg PO DAILY ascorbic acid (vitamin C) [Vitamin C] 500 mg Tablet 500 mg PO DAILY finasteride 5 mg Tablet 5 mg PO DAILY zinc 50 mg Capsule 50 mg PO DAILY cholecalciferol (vitamin D3) [Vitamin D3] 125 mcg (5,000 unit) Tablet 125 mcg PO DAILY Creon 24,000-76,000 -120,000 unit Capsule,Delayed Release(Dr/Ec) 2 cap PO TID PRN (Reason: Digestion) atorvastatin 40 mg Tablet 40 mg PO DAILY aspirin 81 mg Tablet 81 mg PO DAILY lysine 500 mg Capsule 1,500 mg PO DAILY PRN (Reason: Cold Sores) melatonin 5 mg Tablet 5 mg PO BEDTIME PRN (Reason: Sleep) Referrals: Maura Young DO [Primary Care Provider] - Stand Alone Forms: Patient Portal/API
== END 2024-07-10 16:56 | disposition home or self-care (01) ==
PROVIDERS: Emergency Provider Physician Assistant; PCP Family Medicine
DX: S39.012A Strain of muscle, fascia and tendon of lower back, initial encounter (principal); X58.XXXA Exposure to other specified factors, initial encounter
CPT/HCPCS: 99281

== ENCOUNTER 2024-07-13 09:37 | Emergency (ER) | payer OTHER, SELFPAY ==
[2022-05-05 17:51] VITALS: BMI 25.0
[2024-07-13 09:39] VITALS: PULSE 85; O2SAT 97
[2024-07-13 09:40] VITALS: BP 153/71; PULSE 85; O2SAT 100
[2024-07-13 09:43] VITALS: BP 153/71; PULSE 73; RESP 16; TEMP 36.5; O2SAT 99; BMI 21.7
--- NOTE | 2024-07-13 09:45 | ED_ITS ---
HPI - Back Pain/Injury General Chief Complaint: Back Pain/Injury Stated Complaint: back pain, sent by pcp Time Seen by Provider: 07/13/24 09:44 History of Present Illness HPI Narrative: Patient is a 84-year-old male past medical history of hypothyroidism low back pain presents for persistent low back pain. He was seen here previously after he had mechanical back pain after mowing the lawn and moving stuff in the storage unit on 07/09/2024. He does have a history of chronic low back pain and tried taking Tylenol and lidocaine patches with very minimal relief. Patient was sent home on tramadol for his low back pain. Patient presents because his pain has not improved, but he denies any cauda equina symptoms. Able to stand bear weight to his baseline. Review of records show the patient was seen here on 07/10/2024. States that He was then seen by his oncologist who did a CT scan that showed that he had an L2 compression fracture. Unfortunately, his CT scan showed some abnormalities associated with his prostate, and he is supposed to undergo a biopsy this coming Thursday with concerns of prostate cancer, he recently had a PET scan, he is currently being followed by an oncologist. he was scheduled for a biopsy this Thursday, however he contacted his oncologist states that they had to reschedule to next week. Related Data Home Medications Medication Instructions Recorded Confirmed MULTIVITAMIN/MINERALS (Thera M 1 tab PO Q DAY ##0 03/07/10 06/20/24 Plus Tablet) tamsulosin 0.4 mg capsule (Flomax) 0.8 mg PO QDAY ##0 10/12/16 06/20/24 ascorbic acid (vitamin C) 500 mg 500 mg PO DAILY 12/24/20 06/20/24 tablet (Vitamin C) cholecalciferol (vitamin D3) 125 125 mcg PO DAILY 12/24/20 06/20/24 mcg (5,000 unit) tablet (Vitamin D3) finasteride 5 mg tablet 5 mg PO DAILY 12/24/20 06/20/24 [id number] 2 cap PO TID PRN Digestion 12/24/20 06/20/24 24,000-76,000-120,000 unit capsule,delayed rel (Creon) zinc 50 mg capsule 50 mg PO DAILY 12/24/20 06/20/24 lysine 500 mg capsule 1,500 mg PO DAILY PRN Cold Sores 01/03/21 06/20/24 melatonin 5 mg tablet 5 mg PO BEDTIME PRN Sleep 01/03/21 06/20/24 aspirin 81 mg tablet 81 mg PO DAILY 09/01/22 06/20/24 atorvastatin 40 mg tablet 40 mg PO DAILY 09/01/22 06/20/24 levothyroxine 112 mcg tablet 112 mcg PO DAILY 06/20/24 06/20/24 Previous Rx's Medication Instructions Recorded lidocaine HCl 2 % mucosal solution 1 applic mucous membrane DAILY PRN 12/18/23 (Lidocaine Viscous) pain #100 mL hydrocortisone 1 % topical cream 1 applic topical TID PRN itching 06/01/24 (Cortisone (hydrocortisone)) #28.35 grams tramadol 50 mg tablet 50 mg PO Q8H pain #16 tabs 07/10/24 diazepam 2 mg tablet (Valium) 2 mg PO BID PRN muscle spasm 5 07/13/24 days #10 tabs Allergies Allergy/AdvReac Type Severity Reaction Status Date / Time propoxyphene [PROPOXYPHENE] Allergy Severe FACIAL Verified 06/20/24 08:18 SWELLING, RASH clindamycin [CLINDAMYCIN] Allergy Intermediate RASH AND Verified 06/20/24 08:18 C. DIFF omeprazole [From PRILOSEC] Allergy Unknown eye Verified 06/20/24 08:18 swelling sulfamethoxazole Allergy Unknown rash Verified 06/20/24 08:18 [From BACTRIM] sulfur dioxide Allergy Unknown rash Verified 06/20/24 08:18 [SULFUR DIOXIDE] trimethoprim [From BACTRIM] Allergy Unknown rash Verified 06/20/24 08:18 Review of Systems Review of Systems Narrative: General: Denies fever, chills, weight loss HEENT: Denies headache, eye drainage, eye irritation, head trauma, sore throat, voice change Cardiovascular: Denies any chest pain, palpitations, shortness of breath, tachycardia Respiratory: Denies any shortness of breath, cough, wheeze, stridor GI/: Denies any abdominal pain, nausea, vomiting, diarrhea, bright red blood per rectum, melanotic stools, urinary frequency, urinary retention, dysuria, hematuria MSK: Positive low back pain Skin: Denies any rashes, lesions, discoloration Neuro: Denies any headache, lightheadedness, dizziness, fainting, weakness Psych: Denies SI/HI Patient History Medical History Weight loss Left-sided thoracic back pain Osteoarthritis Sleep apnea (~2007) Peripheral neuropathy (~2020) Mumps Measles Chicken pox Tinnitus Hearing loss (~2000) Cataracts, bilateral (~2020) History of elevated PSA (~2013) Hypothyroidism (~2009) Peripheral vascular disease Pancreatic cancer (~2019) TIA (transient ischemic attack) (~2022) Oral thrush Ampullary carcinoma Jaundice Fatigue Pruritus 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) KEVIN (obstructive sleep apnea) BPH (benign prostatic hyperplasia) (~2013) Adult hypothyroidism Surgical History Anesthesia H/O Whipple procedure H/O abdominal surgery (~10/2020) History of cholecystectomy History of tonsillectomy (~1945) Family History Sister Breast cancer in female Dementia Mother Breast cancer in female Unknown Breast cancer in female Father CVA (cerebral vascular accident) Hypertension Brother History of heart disease Social History household members: spouse Smoking Status: Never smoker alcohol intake: never substance use type: does not use Smoking Status: Never smoker Substance Use Type: does not use Exam Narrative Exam Narrative: General: Cooperative, comfortable, well-developed, not in acute distress HEENT: Normocephalic, atraumatic, PERRLA, normal sclera, eyelids normal, Neck: Active full range of motion, atraumatic Chest: Normal to inspection, negative crepitus, no overlying erythema ecchymosis Respiratory: Normal respiratory effort, not in acute respiratory distress, clear to auscultation bilaterally negative cough, wheeze, tachypnea, rhonchi, rales Cardiology: Regular rate rhythm negative gallop, murmur, rubs GI/: Normal to inspection, soft, nonrigid, no tenderness to palpation, exam deferred MSK: Full range of active range of motion of all 4 extremities, atraumatic, patient is neurovascularly intact bilateral lower extremities able to stand bear weight with his cane at his baseline, no numbness weakness tingling to lower extremities no saddle paresthesias, Skin: No rashes lesions noted Neuro: Alert awake oriented x3, moves all 4 extremities spontaneously, cranial nerves intact, able to answer all questions appropriately follows commands appropriately Psych: Cooperative, negative suicidal or homicidal ideations Initial Vital Signs Initial Vital Signs: Vital Signs Temperature 97.7 F 07/13/24 09:43 Pulse Rate 73 07/13/24 09:43 Respiratory Rate 16 07/13/24 09:43 Blood Pressure 153/71 H 07/13/24 09:43 Pulse Oximetry 99 07/13/24 09:43 Oxygen Delivery Method Room Air 07/13/24 09:43 Course Orders Ordered: ED Orders 07/13/24 09:51 CT lumbar spine wo con Stat Discontinued Medications Dexamethasone (Dexamethasone 1 Mg Tablet) 10 mg PO NOW ONE Stop: 07/13/24 09:53 Last Admin: 07/13/24 10:15 Dose: 10 mg Documented By: RB Diazepam (Diazepam 2 Mg Tablet) 2 mg PO NOW ONE Stop: 07/13/24 09:53 Last Admin: 07/13/24 10:15 Dose: 2 mg Documented By: RB Vital Signs Vital signs: Vital Signs - 8 hr 07/13/24 09:43 Temperature 97.7 F Pulse Rate 73 Respiratory Rate 16 Blood Pressure 153/71 H Pulse Oximetry 99 Oxygen Delivery Method Room Air MDM - Back Pain/Injury Differential Diagnosis Differential diagnosis: Likely sciatica, strain of lumbar region and other (Compression fracture) Imaging Data CT lumbar: Radiologist's Impression: [place] [address] CT Scan Report Signed Patient: Addy Firtz MR#: [id number] : 1940 Acct:[id number] Age/Sex: 84 / M Date of Service: 07/13/24 Loc: ED Accession Number: [id number] Procedure: CT lumbar spine wo con Ordering Provider: Darian Rivas D.O. PROCEDURE: CT LUMBAR SPINE WO CON INDICATIONS: low back pain, hx of L2 compression fx TECHNIQUE: Noncontrast 3 mm thick sections acquired from the T12 level to the sacrum. Sagittal and coronal reformats were constructed. For radiation dose reduction, the following was used: automated exposure control. COMPARISON: [facility], CT, CT CHEST ABDOMEN PELVIS WITH CONTRAST, 11/25/2023, 11:48. [facility], CT, CT CHEST ABDOMEN PELVIS WITH CONTRAST, 05/23/2024, 11:45. [facility], [place], PET PSMA PYLARIFY, 07/05/2024, 15:57. FINDINGS: Image quality: Excellent. Bones: There is straightening of normal lumbar lordosis. Sclerotic changes involving L2 vertebral body is seen with chronic appearing superior endplate compression deformity not significantly changed compared to 05/23/2024 study. There is interval development of inferior endplate deformity not seen on previous study suggests acute to subacute fracture. Fracture line is seen extending to posterior wall of the L2 vertebral body also new since previous study. No significant retropulsion of posterior wall. No acute compression fracture is seen. Chronic appearing minimally displaced fractures involving left spinous processes of L3 vertebral body is noted with well corticated margin. T12-L1: Unremarkable. L1-L2: Vacuum disc phenomenon is noted. Mild diffuse disc bulge is seen. No significant central canal stenosis or neural foraminal narrowing. L2-L3: Diffuse disc bulge and bilateral facet arthrosis with mild bilateral neural foraminal narrowing. No significant canal stenosis. L3-L4: Broad-based disc bulge and bilateral facet arthrosis with mild to moderate bilateral neural foraminal narrowing. No significant central canal stenosis. L4-L5: Loss of disc height and degenerative endplate changes are seen. Broad- based disc bulge and bilateral facet arthrosis with moderate to severe bilateral neural foraminal narrowing, no significant central canal stenosis. L5-S1: Diffuse disc bulge and bilateral facet arthrosis without significant central canal stenosis or neural foraminal narrowing. Soft tissues: No retroperitoneal masses or hematomas. Visualized aorta is normal in caliber. IMPRESSION: 1. Metastatic disease involving L2 vertebral body with chronic appearing sup erior endplate compression deformity. Superimposed acute to subacute appearing pathologic fracture involving inferior and right lateral aspect of L2 vertebral body with minimal inferior displacement at fracture site. 2. Chronic appearing minimally displaced fracture involving left transverse process of L3. 3. Mild degenerative disc disease throughout lumbar spine causing various degrees of central canal stenosis and bilateral neural foraminal narrowing as described above. MDM Narrative Medical decision making narrative: Patient is a 84 year male with a history of low back pain presenting for persistent low back pain after mechanical injury on the of this month. Was seen on the and was discharged home tramadol, he returns due to persistent pain, no red flags for cauda equina. Patient states that he has a known compression fracture, CT scan in the emergency department showed chronic appear ing fracture with acute and subacute fractures without any retropulsion. Patient is without any cauda equina symptoms he is neurologically intact, he is supposed to follow up with his oncologist, I informed him to give them a call to see if he can get in sooner he will be sent home with additional medications to treat his symptoms he was given strict return precautions and agrees to being discharged home with outpatient follow up. Discharge Plan Departure Patient Disposition: Home Clinical Impression: Compression fracture Activity Restrictions/Additional Instructions: Please follow up with Oncology, as well as Orthopedic surgery Please read the discharge instructions sheet carefully and bring all papers to all doctor follow-up visits, as it may contain information that your doctor may want to see. Disease processes change and evolve, if your symptoms worsen or if you develop any new symptoms that are concerning to you please return for evaluation. Your evaluation today does not show any evidence of any life- threatening/serious illnesses requiring admission to the hospital or surgery. Please follow-up with your doctor for re-evaluation in approximately 1 day. Seek immediate medical attention for any worrisome symptoms. Prescriptions: New diazepam [Valium] 2 mg tablet 2 mg PO BID PRN (Reason: muscle spasm) 5 Days Qty: 10 0RF No Action lidocaine HCl [Lidocaine Viscous] 2 % solution 1 applic mucous membrane DAILY PRN (Reason: pain) Qty: 100 0RF Rx Instructions: May use as needed for oral pain hydrocortisone [Cortisone (hydrocortisone)] 1 % cream 1 applic topical TID PRN (Reason: itching) Qty: 28.35 0RF MULTIVITAMIN/MINERALS (Thera M Plus Tablet) 1 tab PO Q DAY Qty: 0 tamsulosin [Flomax] 0.4 MG capsule,extended release 24hr 0.8 mg PO QDAY Qty: 0 levothyroxine 112 mcg tablet 112 mcg PO DAILY ascorbic acid (vitamin C) [Vitamin C] 500 mg Tablet 500 mg PO DAILY finasteride 5 mg Tablet 5 mg PO DAILY zinc 50 mg Capsule 50 mg PO DAILY cholecalciferol (vitamin D3) [Vitamin D3] 125 mcg (5,000 unit) Tablet 125 mcg PO DAILY Creon 24,000-76,000 -120,000 unit Capsule,Delayed Release(Dr/Ec) 2 cap PO TID PRN (Reason: Digestion) atorvastatin 40 mg Tablet 40 mg PO DAILY aspirin 81 mg Tablet 81 mg PO DAILY lysine 500 mg Capsule 1,500 mg PO DAILY PRN (Reason: Cold Sores) melatonin 5 mg Tablet 5 mg PO BEDTIME PRN (Reason: Sleep) tramadol 50 mg tablet 50 mg PO Q8H Qty: 16 0RF Referrals: Maura Young DO [Primary Care Provider] - Stand Alone Forms: Patient Portal/API
--- NOTE | 2024-07-13 09:51 | DI.CT.S_ITS ---
PROCEDURE: CT LUMBAR SPINE WO CON INDICATIONS: low back pain, hx of L2 compression fx TECHNIQUE: Noncontrast 3 mm thick sections acquired from the T12 level to the sacrum. Sagittal and coronal reformats were constructed. For radiation dose reduction, the following was used: automated exposure control. COMPARISON: [facility], CT, CT CHEST ABDOMEN PELVIS WITH CONTRAST, 11/25/2023, 11:48. [facility], CT, CT CHEST ABDOMEN PELVIS WITH CONTRAST, 05/23/2024, 11:45. [facility], [place], PET PSMA PYLARIFY, 07/05/2024, 15:57. FINDINGS: Image quality: Excellent. Bones: There is straightening of normal lumbar lordosis. Sclerotic changes involving L2 vertebral body is seen with chronic appearing superior endplate compression deformity not significantly changed compared to 05/23/2024 study. There is interval development of inferior endplate deformity not seen on previous study suggests acute to subacute fracture. Fracture line is seen extending to posterior wall of the L2 vertebral body also new since previous study. No significant retropulsion of posterior wall. No acute compression fracture is seen. Chronic appearing minimally displaced fractures involving left spinous processes of L3 vertebral body is noted with well corticated margin. T12-L1: Unremarkable. L1-L2: Vacuum disc phenomenon is noted. Mild diffuse disc bulge is seen. No significant central canal stenosis or neural foraminal narrowing. L2-L3: Diffuse disc bulge and bilateral facet arthrosis with mild bilateral neural foraminal narrowing. No significant canal stenosis. L3-L4: Broad-based disc bulge and bilateral facet arthrosis with mild to moderate bilateral neural foraminal narrowing. No significant central canal stenosis. L4-L5: Loss of disc height and degenerative endplate changes are seen. Broad-based disc bulge and bilateral facet arthrosis with moderate to severe bilateral neural foraminal narrowing, no significant central canal stenosis. L5-S1: Diffuse disc bulge and bilateral facet arthrosis without significant central canal stenosis or neural foraminal narrowing. Soft tissues: No retroperitoneal masses or hematomas. Visualized aorta is normal in caliber. IMPRESSION: 1. Metastatic disease involving L2 vertebral body with chronic appearing superior endplate compression deformity. Superimposed acute to subacute appearing pathologic fracture involving inferior and right lateral aspect of L2 vertebral body with minimal inferior displacement at fracture site. 2. Chronic appearing minimally displaced fracture involving left transverse process of L3. 3. Mild degenerative disc disease throughout lumbar spine causing various degrees of central canal stenosis and bilateral neural foraminal narrowing as described above. Dictated by: Gurmeet Tapia M.D. on 07/13/2024 at 10:31 Approved by: Gurmeet Tapia M.D. on 07/13/2024 at 10:47
[2024-07-13] MEDS: dexAMETHasone 1 MG TABLET 10 MG PO (10:15)
[2024-07-13] MEDS: diazePAM 2 MG TABLET PO (10:15)
[2024-07-13 11:21] VITALS: BP 138/70; PULSE 66; O2SAT 96
[2024-07-13 11:25] VITALS: BP 138/70; PULSE 64; O2SAT 96
== END 2024-07-13 11:24 | disposition home or self-care (01) ==
PROVIDERS: Emergency Provider Student in an Organized Health Care Education/Training Program; PCP Family Medicine
DX: S32.029D Unspecified fracture of second lumbar vertebra, subsequent encounter for fracture with routine healing (principal); Z79.899 Other long term (current) drug therapy
CPT/HCPCS: 72131; 99284

== ENCOUNTER 2024-10-21 09:10 | Emergency (ER) | payer OTHER, SELFPAY ==
[2022-05-05 17:51] VITALS: BMI 25.0
[2024-10-21] VITALS (16 sets, daily range): BP systolic 96–145; BP diastolic 54–73; PULSE 61–75; RESP 11–23; TEMP 37–38.8; O2SAT 96–98; BMI 21.1
--- NOTE | 2024-10-21 09:20 | EKG_ITS ---
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
--- NOTE | 2024-10-21 09:26 | DI.RAD.S_ITS ---
PROCEDURE: XR CHEST 1V INDICATIONS: suspected sepsis TECHNIQUE: One view of the chest was acquired. COMPARISON: [facility], CR, XR CHEST 1V, 05/05/2022, 13:51. [facility], CR, XR CHEST 1V, 01/03/2021, 13:35. FINDINGS: Surgical changes and devices: None. Lungs and pleura: Mild left basilar opacity versus atelectasis. No pleural effusions or pneumothorax. Mediastinum: Mediastinal contours appear normal. Heart size is normal. Bones and chest wall: No suspicious bony lesions. Overlying soft tissues appear unremarkable. IMPRESSION: Mild left basilar opacity, may represent infection versus atelectasis. Recommend follow-up imaging to assess for resolution. Dictated by: Dinesh Vivar M.D. on 10/21/2024 at 10:06 Approved by: Dinesh Vivar M.D. on 10/21/2024 at 10:07
[2024-10-21 09:43] LABS: Prothrombin Time 11.1 SECONDS (9.4-12.5)
[2024-10-21 09:44] LABS: Add Manual Diff / Slide Review NO; Basophils Absolute Auto 0 /uL (0-100); Basophils Percent Auto 0.2 % (0-2); Eosinophils Absolute Auto 0 /uL (0-450); Eosinophils Percent Auto 0.4 % (2-4); Hematocrit 39.1 % (41-53); Hemoglobin 13.2 g/dL (13.5-17.5); Lymphocytes Absolute Auto 900 /uL (1100-4500); Lymphocytes Percent Auto 12.2 % (25-40); Mean Corpuscular HGB Conc 33.8 % (30-36); Mean Corpuscular Hemoglobin 34.4 PG (26-34); Monocytes Absolute Auto 600 /uL (0-900); Monocytes Percent Auto 9.1 % (3-14); Neutrophils Absolute Auto 5500 /uL (1500-7000); Neutrophils Percent Auto 78.1 % (50-75); Platelet Count 168 X10^3/uL (150-400); Red Blood Cell Count 3.83 X10^6/uL (4.5-5.9); Red Cell Distribution Width 13.9 % (11.6-14.8)
[2024-10-21 09:45] LABS: PTT Partial Thromboplastin Tim 27 SECONDS (25.1-36.5)
--- NOTE | 2024-10-21 09:46 | ED_ITS ---
HPI - Weakness General Chief complaint: Weakness Stated complaint: Weakness Time Seen by Provider: 10/21/24 09:46 Source: patient and EMS Mode of arrival: EMS History of Present Illness HPI Narrative: Patient 84-year-old male history of metastatic prostate cancer on oral daily chemo reports that he is weaker than normal. He is found to have a fever 101.8F . Reports that he did not have a fever yesterday he felt perfectly fine. He does regular self catheterizations. Today he woke up to get out of bed and just kind of slid out of bed. Denies any sort of injury no loss of consciousness head injury neck pain pelvis pain. Just could not get off the floor. He is followed by [facility] Dr. Hicks. He has no cough no chest pain no shortness of breath no abdominal pain no painful frequent urination no mouth sores, just generally weak. Related Data Home Medications Medication Instructions Recorded Confirmed MULTIVITAMIN/MINERALS (Thera M 1 tab PO Q DAY ##0 03/07/10 08/31/24 Plus Tablet) tamsulosin 0.4 mg capsule (Flomax) 0.8 mg PO QDAY ##0 10/12/16 08/31/24 ascorbic acid (vitamin C) 500 mg 500 mg PO DAILY 12/24/20 08/31/24 tablet (Vitamin C) cholecalciferol (vitamin D3) 125 125 mcg PO DAILY 12/24/20 08/31/24 mcg (5,000 unit) tablet (Vitamin D3) finasteride 5 mg tablet 5 mg PO DAILY 12/24/20 08/31/24 vnepyv-vswslkql-lcrootr 2 cap PO TID PRN Digestion 12/24/20 08/31/24 24,000-76,000-120,000 unit capsule,delayed rel (Creon) zinc 50 mg capsule 50 mg PO DAILY 12/24/20 08/31/24 lysine 500 mg capsule 1,500 mg PO DAILY PRN Cold Sores 01/03/21 08/31/24 melatonin 5 mg tablet 5 mg PO BEDTIME PRN Sleep 01/03/21 08/31/24 aspirin 81 mg tablet 81 mg PO DAILY 09/01/22 08/31/24 atorvastatin 40 mg tablet 40 mg PO DAILY 09/01/22 08/31/24 levothyroxine 112 mcg tablet 112 mcg PO DAILY 06/20/24 08/31/24 abiraterone 250 mg tablet 500 mg PO DAILY 08/31/24 08/31/24 prednisone 5 mg tablet mg PO 08/31/24 08/31/24 Previous Rx's Medication Instructions Recorded lidocaine HCl 2 % mucosal solution 1 applic mucous membrane DAILY PRN 12/18/23 (Lidocaine Viscous) pain #100 mL hydrocortisone 1 % topical cream 1 applic topical TID PRN itching 06/01/24 (Cortisone (hydrocortisone)) #28.35 grams tramadol 50 mg tablet 50 mg PO Q8H pain #16 tabs 07/10/24 cefdinir 300 mg capsule 300 mg PO Q12H #14 caps 10/21/24 Allergies Allergy/AdvReac Type Severity Reaction Status Date / Time propoxyphene [PROPOXYPHENE] Allergy Severe FACIAL Verified 08/31/24 14:18 SWELLING, RASH clindamycin [CLINDAMYCIN] Allergy Intermediate RASH AND Verified 08/31/24 14:18 C. DIFF omeprazole [From PRILOSEC] Allergy Unknown eye Verified 08/31/24 14:18 swelling sulfamethoxazole Allergy Unknown rash Verified 08/31/24 14:18 [From BACTRIM] sulfur dioxide Allergy Unknown rash Verified 08/31/24 14:18 [SULFUR DIOXIDE] trimethoprim [From BACTRIM] Allergy Unknown rash Verified 08/31/24 14:18 Patient History Medical History Weight loss Left-sided thoracic back pain Osteoarthritis Sleep apnea (~2007) Peripheral neuropathy (~2020) Mumps Measles Chicken pox Tinnitus Hearing loss (~2000) Cataracts, bilateral (~2020) History of elevated PSA (~2013) Hypothyroidism (~2009) Peripheral vascular disease Pancreatic cancer (~2019) TIA (transient ischemic attack) (~2022) Oral thrush Ampullary carcinoma Jaundice Fatigue Pruritus 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) KEVIN (obstructive sleep apnea) BPH (benign prostatic hyperplasia) (~2013) Adult hypothyroidism Surgical History Anesthesia H/O Whipple procedure H/O abdominal surgery (~10/2020) History of cholecystectomy History of tonsillectomy (~194) Family History Sister Breast cancer in female Dementia Mother Breast cancer in female Unknown Breast cancer in female Father CVA (cerebral vascular accident) Hypertension Brother History of heart disease Social History household members: spouse Smoking Status: Never smoker alcohol intake: never substance use type: does not use Smoking Status: Never smoker Exam Initial Vital Signs Initial Vital Signs: Vital Signs Temperature 101.8 F H 10/21/24 09:15 Pulse Rate 75 10/21/24 09:15 Respiratory Rate 23 10/21/24 09:15 Blood Pressure 145/65 H 10/21/24 09:15 Pulse Oximetry 97 10/21/24 09:15 Oxygen Delivery Method Room Air 10/21/24 09:15 GENERAL: Alert pleasant surprisingly ill-appearing 84-year-old male and in no acute distress. HEENT: Head atraumatic,EOMI, pupils reactive, face symmetric, moist mucous membranes CARDIOVASCULAR: Regular rate and rhythm without murmurs, rubs or gallops. RESPIRATORY: Breath sounds equal bilaterally, no wheezes rales or rhonchi. ABDOMEN: Soft, nontender. Normoactive bowel sounds all 4 quadrants. No guarding or rebound. EXTREMITIES: Normal range of motion, no clubbing or edema. Neurovascularly intact Pelvis stable NEUROLOGICAL: Alert and oriented x4.Normal gait and speech. Cranial nerves II through XII grossly intact. Tooth Clerk strength equal bilaterally no facial droop able to lift legs SKIN: Warm, dry, no laceration, no petechiae, no rashes or lesions. Course Orders Ordered: ED Orders 10/21/24 09:10 Complete Blood Count AUTO DIFF Stat Comprehensive Metabolic Panel Stat Lactate (Lactic Acid) Stat Lipase Stat PTT Partial Thromboplastin Drake Stat Procalcitonin Stat Prothrombin Time INR Stat 10/21/24 09:23 Covid-19 + FLU A/B + RSV - PCR Stat 10/21/24 09:26 XR chest 1V Stat EKG-12 Lead Stat RT Consult Eval and Treat NOW 10/21/24 09:50 Blood Culture Stat 10/21/24 10:50 Urinalysis and Microscopic Stat Urine Culture Stat Discontinued Medications Acetaminophen (Acetaminophen 325 Mg Tablet) 975 mg PO NOW ONE Stop: 10/21/24 10:13 Last Admin: 10/21/24 10:15 Dose: 975 mg Documented By: MLM Sodium Chloride (Normal Saline 0.9%) 1,000 mls @ 1,000 mls/hr IV BOLUS ONE Stop: 10/21/24 10:25 Last Infusion: 10/21/24 10:57 Dose: Infused Documented By: Admin: 10/21/24 09:48 Dose: 1,000 mls/hr Documented By: MARC Ceftriaxone Sodium 1,000 mg/ (Sodium Chloride) 100 mls @ 200 mls/hr IV NOW ONE Stop: 10/21/24 11:21 Last Infusion: 10/21/24 12:16 Dose: Infused Documented By: Admin: 10/21/24 11:29 Dose: 200 mls/hr Documented By: DELMI Ondansetron HCl (Ondansetron 4 Mg/2 Ml Inj) 4 mg IV NOW PRN PRN Reason: Nausea And Vomiting Ondansetron HCl (Ondansetron 4 Mg Odt) 4 mg SL NOW PRN PRN Reason: Nausea And Vomiting Vital Signs Vital signs: Vital Signs - 8 hr 10/21/24 09:15 10/21/24 09:21 10/21/24 09:30 Temperature 101.8 F H Pulse Rate 75 74 73 Respiratory Rate 23 22 14 Blood Pressure 145/65 H Pulse Oximetry 97 96 98 Oxygen Delivery Method Room Air 10/21/24 09:31 10/21/24 09:31 10/21/24 10:00 Temperature Pulse Rate 72 Respiratory Rate 18 Blood Pressure 144/73 H 127/63 Pulse Oximetry 98 Oxygen Delivery Method 10/21/24 10:00 10/21/24 10:15 10/21/24 10:30 Temperature 101.8 F H Pulse Rate 70 74 Respiratory Rate 13 23 Blood Pressure Pulse Oximetry 98 98 Oxygen Delivery Method 10/21/24 10:31 10/21/24 10:31 10/21/24 11:00 Temperature Pulse Rate 75 68 Respiratory Rate 17 17 Blood Pressure 135/63 Pulse Oximetry 98 Oxygen Delivery Method 10/21/24 11:01 10/21/24 11:01 10/21/24 11:04 Temperature 99.3 F Pulse Rate 68 Respiratory Rate 19 Blood Pressure 108/59 L Pulse Oximetry Oxygen Delivery Method 10/21/24 11:29 10/21/24 11:30 10/21/24 11:30 Temperature Pulse Rate 63 63 Respiratory Rate 14 12 Blood Pressure 96/56 L Pulse Oximetry 98 98 Oxygen Delivery Method 10/21/24 12:00 10/21/24 12:00 10/21/24 12:16 Temperature 98.6 F Pulse Rate 61 Respiratory Rate 11 L Blood Pressure 98/54 L Pulse Oximetry 98 Oxygen Delivery Method 10/21/24 12:52 Temperature Pulse Rate 62 Respiratory Rate 18 Blood Pressure 98/56 L Pulse Oximetry 96 Oxygen Delivery Method Room Air MDM - Weakness Lab Data 10/21/24 09:10 10/21/24 09:10 Labs: Lab Results 10/21/24 10/21/24 10/21/24 Range/Units 09:10 09:23 10:50 WBC 7.0 (4.5-11.0) X10^3/uL RBC 3.83 L (4.5-5.9) X10^6/uL Hgb 13.2 L (13.5-17.5) g/dL Hct 39.1 L (41-53) % MCV 102.0 H (80-100) fL MCH 34.4 H (26-34) PG MCHC 33.8 (30-36) % RDW 13.9 (11.6-14.8) % Plt Count 168 (150-400) X10^3/uL Neut % (Auto) 78.1 H (50-75) % Lymph % (Auto) 12.2 L (25-40) % Webb % (Auto) 9.1 (3-14) % Eos % (Auto) 0.4 L (2-4) % Baso % (Auto) 0.2 (0-2) % Neut # (Auto) 5500 (0570-5179) /uL Lymph # (Auto) 900 L (9847-1033) /uL Webb # (Auto) 600 (0-900) /uL Eos # (Auto) 0 (0-450) /uL Baso # (Auto) 0 (0-100) /uL PT 11.1 (9.4-12.5) SECONDS INR 1.0 (0.9-1.3) APTT 27 (25.1-36.5) SECONDS Sodium 140 (137-145) mmol/L Potassium 3.3 L (3.4-5.1) mmol/L Chloride 108 H (98-107) mmol/L Carbon Dioxide 23 (22-32) mmol/L BUN 22 H (9-20) mg/dL Creatinine 0.86 (0.66-1.25) mg/dL Estimated GFR > 60 (>60) mL/min BUN/Creatinine Ratio 25.6 H (6-22) Glucose 104 (80-110) mg/dL Lactate 2.4 H (0.7-2.1) mmol/L Calcium 9.6 (8.4-10.2) mg/dL Total Bilirubin 0.8 (0.2-1.3) mg/dL AST 37 (17-59) IU/L ALT 29 (<50) IU/L Alkaline Phosphatase 92 (38-126) U/L Total Protein 7.4 (6.3-8.2) g/dL Albumin 4.5 (3.5-5.0) g/dL Globulin 2.9 (1.7-4.1) g/dL Albumin/Globulin Ratio 1.6 (1.0-2.8) Lipase 21 L (23-300) U/L Procalcitonin 0.112 (<0.5) ng/mL Urine Color Yellow Urine Appearance Clear Urine pH 6.0 (4.5-8.0) Ur Specific [place] 1.025 (1.000-1.035) Urine Protein Negative (Negative) Urine Glucose (UA) Negative (Negative) g/dL Urine Ketones Trace H (NEGATIVE) Urine Occult Blood Negative (Negative) Urine Nitrate Positive H (Negative) Urine Bilirubin Negative (NEGATIVE) Urine Urobilinogen 0.2 (0.2) E.U./dL Ur Leukocyte Esterase Negative (NEGATIVE) Urine RBC None seen (0-5/HPF) Urine WBC 0-1/hpf (0-5/HPF) Ur Squamous Epith Cells None seen (0-5/HPF) Urine Bacteria Many (>30) H (None) Ur Culture Indicated? Specimen cultured Vol Urine Centrifuged 10ml (spun) SARS-CoV-2 (PCR) Negative (Negative) Influenza A (RT-PCR) Flu a negative (NEGATIVE) Influenza B (RT-PCR) Flu b negative (NEGATIVE) RSV (PCR) Negative (Negative) 10/21/24 Range/Units 11:16 WBC (4.5-11.0) X10^3/uL RBC (4.5-5.9) X10^6/uL Hgb (13.5-17.5) g/dL Hct (41-53) % MCV (80-100) fL MCH (26-34) PG MCHC (30-36) % RDW (11.6-14.8) % Plt Count (150-400) X10^3/uL Neut % (Auto) (50-75) % Lymph % (Auto) (25-40) % Webb % (Auto) (3-14) % Eos % (Auto) (2-4) % Baso % (Auto) (0-2) % Neut # (Auto) (1482-2192) /uL Lymph # (Auto) (3306-6306) /uL Webb # (Auto) (0-900) /uL Eos # (Auto) (0-450) /uL Baso # (Auto) (0-100) /uL PT (9.4-12.5) SECONDS INR (0.9-1.3) APTT (25.1-36.5) SECONDS Sodium (137-145) mmol/L Potassium (3.4-5.1) mmol/L Chloride (98-107) mmol/L Carbon Dioxide (22-32) mmol/L BUN (9-20) mg/dL Creatinine (0.66-1.25) mg/dL Estimated GFR (>60) mL/min BUN/Creatinine Ratio (6-22) Glucose (80-110) mg/dL Lactate 1.8 (0.7-2.1) mmol/L Calcium (8.4-10.2) mg/dL Total Bilirubin (0.2-1.3) mg/dL AST (17-59) IU/L ALT (<50) IU/L Alkaline Phosphatase (38-126) U/L Total Protein (6.3-8.2) g/dL Albumin (3.5-5.0) g/dL Globulin (1.7-4.1) g/dL Albumin/Globulin Ratio (1.0-2.8) Lipase (23-300) U/L Procalcitonin (<0.5) ng/mL Urine Color Urine Appearance Urine pH (4.5-8.0) Ur Specific [place] (1.000-1.035) Urine Protein (Negative) Urine Glucose (UA) (Negative) g/dL Urine Ketones (NEGATIVE) Urine Occult Blood (Negative) Urine Nitrate (Negative) Urine Bilirubin (NEGATIVE) Urine Urobilinogen (0.2) E.U./dL Ur Leukocyte Esterase (NEGATIVE) Urine RBC (0-5/HPF) Urine WBC (0-5/HPF) Ur Squamous Epith Cells (0-5/HPF) Urine Bacteria (None) Ur Culture Indicated? Vol Urine Centrifuged SARS-CoV-2 (PCR) (Negative) Influenza A (RT-PCR) (NEGATIVE) Influenza B (RT-PCR) (NEGATIVE) RSV (PCR) (Negative) Imaging Data Chest x-ray: Radiologist Impression: PROCEDURE: XR CHEST 1V INDICATIONS: suspected sepsis TECHNIQUE: One view of the chest was acquired. COMPARISON: [facility], CR, XR CHEST 1V, 05/05/2022, 13:51. [facility], CR, XR CHEST 1V, 01/03/2021, 13:35. FINDINGS: Surgical changes and devices: None. Lungs and pleura: Mild left basilar opacity versus atelectasis. No pleural effusions or pneumothorax. Mediastinum: Mediastinal contours appear normal. Heart size is normal. Bones and chest wall: No suspicious bony lesions. Overlying soft tissues appear unremarkable. IMPRESSION: Mild left basilar opacity, may represent infection versus atelectasis. Recommend follow-up imaging to assess for resolution. Dictated by: Dinesh Vivar M.D. on 10/21/2024 at 10:06 ECG Data Attestation: I personally reviewed and interpreted this ECG as follows: Prior ECG tracings: available for review Interpretation: Normal sinus rhythm rate 72 NH interval 142 QRS 104 QTC 440 changes MDM Narrative Medical decision making narrative: [facility] CC: Weakness Complicating co-morbidities: Prostate cancer, self catheterizations Data collected from: Family at bedside Medical records reviewed: Previous ED visits Differential considered: Sepsis infection viral illness Exam documented above, pertinent findings include: Alert awake well-appearing 84-year-old male Lab Test results independently reviewed as above. Pertinent findings: CBC no neutropenia or leukocytosis WBC 7.0 neutrophils 5500 Lactate 2.4-->1.8 Procalcitonin0.112 CMP mild hypokalemia potassium 3.3 no LEENA other electrolytes within normal limits Liver enzymes within normal limits Troponin negative Urinalysis positive for nitrates and bacteria consistent with UTI Viral panel negative Independently reviewed EKG as above Sinus rhythm no ischemia Imaging studies independently reviewed: Chest x-ray mild left basilar opacity Treatments: Rocephin IV fluids Tylenol Re-evaluations: Patient is feeling better. He ambulated in the ED Discussion: 84-year-old male currently undergoing oral chemotherapy for metastatic prostate cancer presents today with fever of 101.8. He has no evidence of neutropenia with neutrophils 5500. He did have a mild elevation in his lactate of 2.4 but it did improve after 1 L of fluid. Blood cultures are pending other blood work is overall reassuring. Does not meet admission criteria this time. Discussed with patient that he needs to call his oncologist in regards to whether not continue chemotherapy well having an active infection Discharge Plan Departure Patient Disposition: Home Clinical Impression: Acute UTI Instructions: DI for Urinary Tract Infection (UTI) Activity Restrictions/Additional Instructions: *You have been diagnosed with UTI *What to do: At this time stay hydrated rest. Call Oncology today in regards to if you should continue your chemotherapy while you have an active infection. You have no evidence of neutropenia. Your absolute neutrophil count is 5500 *Continue to take medications as directed Cefdinir 300 mg twice a day for 7 days *Follow up with your primary care provider in 2-3 days or call [phone] *Return to ER if you should have increasing weakness confusion or any new, worsening or concerning symptoms Prescriptions: New cefdinir 300 mg capsule 300 mg PO Q12H Qty: 14 0RF No Action lidocaine HCl [Lidocaine Viscous] 2 % solution 1 applic mucous membrane DAILY PRN (Reason: pain) Qty: 100 0RF Rx Instructions: May use as needed for oral pain hydrocortisone [Cortisone (hydrocortisone)] 1 % cream 1 applic topical TID PRN (Reason: itching) Qty: 28.35 0RF prednisone 5 mg tablet PO abiraterone 250 mg tablet 500 mg PO DAILY Rx Instructions: must be taken on empty stomach, at least 1 hr before or 2 hrs after a meal/food MULTIVITAMIN/MINERALS (Thera M Plus Tablet) 1 tab PO Q DAY Qty: 0 tamsulosin [Flomax] 0.4 MG capsule,extended release 24hr 0.8 mg PO QDAY Qty: 0 levothyroxine 112 mcg tablet 112 mcg PO DAILY ascorbic acid (vitamin C) [Vitamin C] 500 mg Tablet 500 mg PO DAILY finasteride 5 mg Tablet 5 mg PO DAILY zinc 50 mg Capsule 50 mg PO DAILY cholecalciferol (vitamin D3) [Vitamin D3] 125 mcg (5,000 unit) Tablet 125 mcg PO DAILY Creon 24,000-76,000 -120,000 unit Capsule,Delayed Release(Dr/Ec) 2 cap PO TID PRN (Reason: Digestion) atorvastatin 40 mg Tablet 40 mg PO DAILY aspirin 81 mg Tablet 81 mg PO DAILY lysine 500 mg Capsule 1,500 mg PO DAILY PRN (Reason: Cold Sores) melatonin 5 mg Tablet 5 mg PO BEDTIME PRN (Reason: Sleep) tramadol 50 mg tablet 50 mg PO Q8H Qty: 16 0RF Referrals: Maura Young DO [Primary Care Provider] - Stand Alone Forms: Patient Portal/API/Survey
[2024-10-21] MEDS: SODIUM CHLORIDE 0.9% 1,000 ML 1000 ML IV (09:48)
[2024-10-21 09:56] LABS: Alanine Aminotransferase 29 IU/L (<50); Albumin 4.5 g/dL (3.5-5.0); Albumin Globulin Ratio 1.6 (1.0-2.8); Alkaline Phosphatase 92 U/L (38-126); Aspartate Aminotransferase 37 IU/L (17-59); BUN Creatinine Ratio 25.6 (6-22); Bilirubin Total 0.8 mg/dL (0.2-1.3); Blood Urea Nitrogen 22 mg/dL (9-20); Calcium 9.6 mg/dL (8.4-10.2); Carbon Dioxide 23 mmol/L (22-32); Chloride 108 mmol/L (98-107); Estimated Glomerular Filt Rate > 60 mL/min (>60); Globulin 2.9 g/dL (1.7-4.1); Glucose 104 mg/dL (80-110); HEMOLYSIS < 15 (0-50); Lipase 21 U/L (23-300); Potassium 3.3 mmol/L (3.4-5.1); Sodium 140 mmol/L (137-145); Total Protein 7.4 g/dL (6.3-8.2)
[2024-10-21 09:57] LABS: Lactate (Lactic Acid) 2.4 mmol/L (0.7-2.1)
[2024-10-21 10:13] LABS: Procalcitonin 0.112 ng/mL (<0.5)
[2024-10-21] MEDS: ACETAMINOPHEN 325 MG TABLET 975 MG PO (10:15)
[2024-10-21 10:17] LABS: Influenza A - CEPHEID Flu A NEGATIVE (NEGATIVE); Influenza B - CEPHEID Flu B NEGATIVE (NEGATIVE); Respiratory Syncytial Virus Negative (Negative)
[2024-10-21 10:18] LABS: COVID-19 CEPHEID 4-PLEX PCR Negative (Negative)
--- NOTE | 2024-10-21 10:59 | PC.NURSE ---
Pt self caths, assisted in obtaining a clean specimen
[2024-10-21 11:05] LABS: Appearance Urine UA CLEAR; Bilirubin Urine UA NEGATIVE (NEGATIVE); Color Urine UA YELLOW; Glucose Urine UA NEGATIVE (Negative); Ketones Urine UA TRACE (NEGATIVE); Leukocyte Esterase Urine UA NEGATIVE (NEGATIVE); Nitrite Urine UA POSITIVE (Negative); Occult Blood Urine UA NEGATIVE (Negative); Protein Urine UA NEGATIVE (Negative); Specific Gravity Urine UA 1.025 (1.000-1.035); Urobilinogen Urine UA 0.2 E.U./dL (0.2)
[2024-10-21 11:06] LABS: Urine Volume 10mL (spun)
[2024-10-21 11:10] LABS: RBC Urine None Seen (0-5/HPF); WBC Urine 0-1/HPF (0-5/HPF)
[2024-10-21 11:10] LABS: Reflexed Lactate in 2 Hours Y
[2024-10-21 11:11] LABS: Bacteria Urine Many (>30); Culture Indicated Urine Specimen Cultured; Squamous Epithelial Cell Urine None Seen (0-5/HPF)
[2024-10-21] MEDS: cefTRIAXone 1,000 MG in SODIUM CHLORIDE 0.9% 100 ML 200 MG IV (11:29)
[2024-10-21 11:32] LABS: Lactate 2HR (Lactic Acid Rflx) 1.8 mmol/L (0.7-2.1)
--- NOTE | 2024-10-21 12:14 | PC.NURSE ---
Pt was ambulated down to the MD station with a walker. He reported feeling like he needed some water but stated that he wasn't dizzy. Dr Macedo saw the PT and assessed him while he was standing in front of her. He stated he felt good enough to go home. Patient ambulated back to his room.
== END 2024-10-21 13:06 | disposition home or self-care (01) ==
PROVIDERS: Emergency Provider Emergency Medicine; PCP Family Medicine
DX: N39.0 Urinary tract infection, site not specified (principal); B95.2 Enterococcus as the cause of diseases classified elsewhere; B95.8 Unspecified staphylococcus as the cause of diseases classified elsewhere; C79.82 Secondary malignant neoplasm of genital organs; R50.9 Fever, unspecified; Z88.2 Allergy status to sulfonamides; E03.9 Hypothyroidism, unspecified; I44.7 Left bundle-branch block, unspecified; Z86.79 Personal history of other diseases of the circulatory system; Z86.73 Personal history of transient ischemic attack (TIA), and cerebral infarction without residual deficits; R79.89 Other specified abnormal findings of blood chemistry
CPT/HCPCS: 0241U; 36415; 51701; 71045; 80053; 81001; 83605; 83690; 84145; 85025; 85610; 85730; 87040; 87077; 87086; 87147; 87186; 93005; 96361; 96365; 99285; J0696

== ENCOUNTER → 2025-03-03 12:48 | Outpatient (CLI) | payer OTHER, SELFPAY ==
[2022-05-05 17:51] VITALS: BMI 25.0
[2025-03-03 14:04] LABS: Appearance Urine UA CLEAR; Bilirubin Urine UA NEGATIVE (NEGATIVE); Color Urine UA YELLOW; Glucose Urine UA NEGATIVE (Negative); Ketones Urine UA NEGATIVE (NEGATIVE); Leukocyte Esterase Urine UA NEGATIVE (NEGATIVE); Nitrite Urine UA NEGATIVE (Negative); Occult Blood Urine UA NEGATIVE (Negative); Protein Urine UA NEGATIVE (Negative); Urobilinogen Urine UA 0.2 E.U./dL (0.2); pH Urine UA 5.5 (4.5-8.0)
[2025-03-03 14:05] LABS: Urine Volume 10mL (spun)
[2025-03-03 14:06] LABS: Bacteria Urine None Seen; Culture Indicated Urine Cult Not Indicated; RBC Urine None Seen (0-5/HPF); Squamous Epithelial Cell Urine None Seen (0-5/HPF); WBC Urine None Seen (0-5/HPF)
== END ==
PROVIDERS: PCP Family Medicine
DX: C61 Malignant neoplasm of prostate (principal); R33.9 Retention of urine, unspecified
CPT/HCPCS: 81001

== ENCOUNTER 2025-07-09 10:06 | Inpatient (IN) | payer MEDICARE, SELFPAY ==
[2022-05-05 17:51] VITALS: BMI 25.0
[2025-07-09] VITALS (16 sets, daily range): BP systolic 78–119; BP diastolic 42–60; PULSE 64–83; RESP 18–23; TEMP 36.8–36.9; O2SAT 91–99; BMI 21.7
--- NOTE | 2025-07-09 10:55 | DI.RAD.S_ITS ---
PROCEDURE: XR CHEST 1V INDICATIONS: hx prostate ca/ weakness TECHNIQUE: One view of the chest was acquired. COMPARISON: [facility], , XR CHEST 1V, 10/21/2024, 9:46. [facility], CR, XR CHEST 1V, 05/05/2022, 13:51. FINDINGS: Surgical changes and devices: None. Lungs and pleura: Lungs are clear. No pleural effusions or pneumothorax. Left basilar atelectasis. Mediastinum: Mediastinal contours appear normal. Heart size is normal. Bones and chest wall: No suspicious bony lesions. Overlying soft tissues appear unremarkable. IMPRESSION: No acute cardiopulmonary abnormality is seen. Dictated by: Medardo Landis M.D. on 07/09/2025 at 10:51 Approved by: Medardo Landis M.D. on 07/09/2025 at 10:51
--- NOTE | 2025-07-09 10:56 | ED.FALL ---
HPI - Fall General Chief Complaint: Fall Stated Complaint: Slid off bed;EMS called making sure ok Time Seen by Provider: 07/09/25 10:21 Source: patient Mode of arrival: Wheelchair History of Present Illness HPI Narrative: 85-year-old gentleman history of metastatic prostate cancer on daily chemo orally since with weakness this morning sliding off the bed after getting up was too weak to get up on his own brought in via EMS for further evaluation. He denies any fever, chills, body aches, sore throat, cough, nausea, vomiting, diarrhea, chest pain, back pain, abdominal pain, headache, dizziness. He did have 1 episode of nausea, vomiting but is no longer nauseous at this time. Other than what is stated 14 point review of system is negative. Related Data Home Medications ?Medication ?Instructions ?Recorded ?Confirmed MULTIVITAMIN/MINERALS (Thera M 1 tab PO Q DAY ##0 03/07/10 06/19/25 Plus Tablet) ascorbic acid (vitamin C) 500 mg 500 mg PO DAILY 12/24/20 06/19/25 tablet (Vitamin C) cholecalciferol (vitamin D3) 125 125 mcg PO DAILY 12/24/20 06/19/25 mcg (5,000 unit) tablet (Vitamin D3) [id number] 2 cap PO TID PRN Digestion 12/24/20 06/19/25 24,000-76,000-120,000 unit capsule,delayed rel (Creon) zinc 50 mg capsule 50 mg PO DAILY 12/24/20 06/19/25 lysine 500 mg capsule 1,500 mg PO DAILY PRN Cold Sores 01/03/21 06/19/25 melatonin 5 mg tablet 5 mg PO BEDTIME PRN Sleep 01/03/21 06/19/25 aspirin 81 mg tablet 81 mg PO DAILY 09/01/22 06/19/25 levothyroxine 112 mcg tablet 112 mcg PO DAILY 06/20/24 06/19/25 abiraterone 250 mg tablet 500 mg PO DAILY 08/31/24 06/19/25 olaparib 150 mg tablet (Lynparza) 300 mg PO BID 04/17/25 06/19/25 vitamin E mixed 400 unit capsule unit PO DAILY 04/17/25 06/19/25 prednisone 5 mg tablet 5 mg PO DAILY 06/02/25 06/19/25 triamcinolone acetonide 0.1 % 1 applic topical TID PRN 06/02/25 06/19/25 topical cream Previous Rx's ?Medication ?Instructions ?Recorded hydrocortisone 1 % topical cream 1 applic topical TID PRN itching 06/01/24 (Cortisone (hydrocortisone)) #28.35 grams atorvastatin 40 mg tablet 40 mg PO DAILY #90 tabs 06/09/25 Allergies Allergy/AdvReac Type Severity Reaction Status Date / Time propoxyphene (PROPOXYPHENE) Allergy Severe FACIAL Verified 07/09/25 10:46 SWELLING, RASH clindamycin (CLINDAMYCIN) Allergy Intermediate RASH AND Verified 07/09/25 10:46 C. DIFF omeprazole (From PRILOSEC) Allergy Unknown eye Verified 07/09/25 10:46 swelling sulfamethoxazole (From Allergy Unknown rash Verified 07/09/25 10:46 BACTRIM) sulfur dioxide (SULFUR Allergy Unknown rash Verified 07/09/25 10:46 DIOXIDE) trimethoprim (From BACTRIM) Allergy Unknown rash Verified 07/09/25 10:46 Review of Systems Review of Systems ROS Unobtainable: All systems reviewed & are unremarkable except as noted in HPI and below Patient History Medical History Weight loss Left-sided thoracic back pain Osteoarthritis Sleep apnea (~2007) Peripheral neuropathy (~2020) Mumps Measles Chicken pox Tinnitus Hearing loss (~2000) Cataracts, bilateral (~2020) History of elevated PSA (~2013) Hypothyroidism (~2009) Peripheral vascular disease Pancreatic cancer (~2019) TIA (transient ischemic attack) (~2022) Oral thrush Ampullary carcinoma Jaundice Fatigue Pruritus 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) KEVIN (obstructive sleep apnea) BPH (benign prostatic hyperplasia) (~2013) Adult hypothyroidism Surgical History Anesthesia H/O Whipple procedure H/O abdominal surgery (~10/2020) History of cholecystectomy History of tonsillectomy (~194) Family History Sister Breast cancer in female Dementia Mother Breast cancer in female Unknown Breast cancer in female Father CVA (cerebral vascular accident) Hypertension Brother History of heart disease Social History household members: spouse alcohol intake: never substance use type: does not use Exam Narrative Exam Narrative: GENERAL: [85] year old patient appears stated age. Well-developed patient, in mild distress. HEAD: Atraumatic. Normocephalic. EYES: Pupils equal round and reactive. Extraocular motions intact. No scleral icterus. No injection or drainage. ENT: Nose without bleeding, purulent drainage. Throat without erythema, tonsillar hypertrophy or exudate. Airway patent. NECK: Trachea midline. Non tender CARDIOVASCULAR: Regular rate and rhythm without murmurs, gallops, or rubs. RESPIRATORY: Clear to auscultation. Breath sounds equal bilaterally. No wheezes, rales, or rhonchi. GASTROINTESTINAL: Abdomen soft, non-tender, nondistended. EXTREMITIES: No edema or joint tenderness. BACK: Nontender without deformity or crepitance. No flank tenderness. NEURO: AOx3. SKIN: No rash or erythema of visible areas Initial Vital Signs Initial Vital Signs: Vital Signs Blood Pressure 119/56 L 07/09/25 10:43 Course Orders Ordered: ED Orders 07/09/25 10:55 CT abdomen pelvis w con Stat CT head/brain wo con Stat XR chest 1V Stat EKG-12 Lead Stat 07/09/25 11:05 Covid-19 + FLU A/B + RSV - PCR Stat 07/09/25 11:50 Blood Culture Stat Complete Blood Count AUTO DIFF Stat Comprehensive Metabolic Panel Stat [facility] Creatine Kinase MB Routine Lactate (Lactic Acid) Stat Lipase Stat Magnesium Stat NT-proBNP (BNP-Adult 18+) Stat Troponin I Stat 07/09/25 13:00 Urinalysis and Microscopic Stat Urine Culture Stat 07/09/25 13:44 Troponin I Stat Discontinued Medications Lactated Ringer's (Lactated Ringers) 1,000 mls @ 1,000 mls/hr IV BOLUS ONE Stop: 07/09/25 11:54 Last Admin: 07/09/25 11:50 Dose: 1,000 mls/hr Documented By: DELMI Lactated Ringer's (Lactated Ringers) 1,000 mls @ 1,000 mls/hr IV BOLUS ONE Stop: 07/09/25 14:23 Last Admin: 07/09/25 13:37 Dose: 1,000 mls/hr Ceftriaxone Sodium 1,000 mg/ (Sodium Chloride) 100 mls @ 200 mls/hr IV NOW ONE Stop: 07/09/25 13:25 Last Infusion: 07/09/25 14:21 Dose: Infused Magnesium Citrate (Magnesium Citrate 300 Ml Solution) 150 ml PO NOW ONE Stop: 07/09/25 14:10 Potassium Chloride (Potassium Chloride 20 Meq/15 Ml Udc) 40 meq PO NOW ONE Stop: 07/09/25 13:24 Last Admin: 07/09/25 13:36 Dose: 40 meq Vital Signs Vital signs: Vital Signs - 8 hr 07/09/25 10:43 07/09/25 10:44 07/09/25 10:44 Temperature 98.4 F Pulse Rate 82 83 Respiratory Rate 22 Blood Pressure 119/56 L 119/56 L Pulse Oximetry 97 98 Oxygen Delivery Method Room Air 07/09/25 11:00 07/09/25 11:00 07/09/25 12:00 Temperature Pulse Rate 75 73 Respiratory Rate 23 Blood Pressure 100/58 L Pulse Oximetry 98 97 Oxygen Delivery Method 07/09/25 12:01 07/09/25 12:01 07/09/25 12:02 Temperature Pulse Rate 72 71 Respiratory Rate Blood Pressure 115/57 L Pulse Oximetry 97 97 Oxygen Delivery Method 07/09/25 12:02 07/09/25 12:30 07/09/25 12:30 Temperature Pulse Rate 68 Respiratory Rate Blood Pressure 113/60 112/60 Pulse Oximetry 95 Oxygen Delivery Method 07/09/25 13:00 07/09/25 13:00 07/09/25 13:30 Temperature Pulse Rate 75 66 Respiratory Rate Blood Pressure 118/56 L Pulse Oximetry 91 98 Oxygen Delivery Method 07/09/25 13:30 07/09/25 14:00 07/09/25 14:00 Temperature Pulse Rate 66 Respiratory Rate Blood Pressure 106/59 L 107/59 L Pulse Oximetry 98 Oxygen Delivery Method MDM - Fall Lab Data 07/09/25 11:50 07/09/25 11:50 Labs: Lab Results 07/09/25 07/09/25 07/09/25 Range/Units 11:05 11:50 13:00 WBC 5.1 (4.5-11.0) X10^3/uL RBC 1.99 L (4.5-5.9) X10^6/uL Hgb 8.8 L (13.5-17.5) g/dL Hct 25.3 L (41-53) % MCV 127.2 H (80-100) fL MCH 44.1 H (26-34) PG MCHC 34.6 (30-36) % RDW 17.6 H (11.6-14.8) % Plt Count 148 L (150-400) X10^3/uL Neut % (Auto) 93.5 H (50-75) % Lymph % (Auto) 3.6 L (25-40) % Waller % (Auto) 2.6 L (3-14) % Eos % (Auto) 0.0 L (2-4) % Baso % (Auto) 0.3 (0-2) % Neut # (Auto) 4700 (2815-6838) /uL Lymph # (Auto) 200 L (0656-9323) /uL Waller # (Auto) 100 (0-900) /uL Eos # (Auto) 0 (0-450) /uL Baso # (Auto) 0 (0-100) /uL RBC Morphology Not Reportable Poikilocytosis 1+ H Anisocytosis 1+ H Sodium 131 L (137-145) mmol/L Potassium 3.2 L (3.4-5.1) mmol/L Chloride 102 (98-107) mmol/L Carbon Dioxide 23 (22-32) mmol/L BUN 21 H (9-20) mg/dL Creatinine 0.72 (0.66-1.25) mg/dL Estimated GFR > 60 (>60) mL/min BUN/Creatinine Ratio 29.2 H (6-22) Glucose 116 H (70-99) mg/dL Lactate 2.9 H (0.7-2.1) mmol/L Calcium 8.5 (8.4-10.2) mg/dL Magnesium 1.9 (1.6-2.3) mg/dL Total Bilirubin 0.9 (0.2-1.3) mg/dL AST 37 (17-59) IU/L ALT 30 (<50) IU/L Alkaline Phosphatase 46 (38-126) U/L Troponin I 0.028 (0.01-0.034) ng/mL NT-Pro-B Natriuret Pep 2110 H (<450) pg/mL Total Protein 5.6 L (6.3-8.2) g/dL Albumin 3.4 L (3.5-5.0) g/dL Globulin 2.2 (1.7-4.1) g/dL Albumin/Globulin Ratio 1.5 (1.0-2.8) Lipase 10 L (23-300) U/L Urine Color Yellow Urine Appearance Clear Urine pH 6.0 (4.5-8.0) Ur Specific Platinum 1.015 (1.000-1.035) Urine Protein Trace H (Negative) Urine Glucose (UA) Negative (Negative) g/dL Urine Ketones Trace H (NEGATIVE) Urine Occult Blood 2+ H (Negative) Urine Nitrate Positive H (Negative) Urine Bilirubin Negative (NEGATIVE) Urine Urobilinogen 1.0 (0.2) E.U./dL Ur Leukocyte Esterase Negative (NEGATIVE) Urine RBC 10-30/hpf H (0-5/HPF) Urine WBC 0-1/hpf (0-5/HPF) Ur Squamous Epith Cells 0-1 /hpf (0-5/HPF) Amorphous Sediment 2+ Urine Bacteria Many (>30) H (None) Urine Yeast 0-1/hpf (None) Ur Culture Indicated? Specimen cultured Vol Urine Centrifuged 10ml (spun) SARS-CoV-2 (PCR) Negative (Negative) Influenza A (RT-PCR) Flu a negative (NEGATIVE) Influenza B (RT-PCR) Flu b negative (NEGATIVE) RSV (PCR) Negative (Negative) 07/09/25 Range/Units 13:44 WBC (4.5-11.0) X10^3/uL RBC (4.5-5.9) X10^6/uL Hgb (13.5-17.5) g/dL Hct (41-53) % MCV (80-100) fL MCH (26-34) PG MCHC (30-36) % RDW (11.6-14.8) % Plt Count (150-400) X10^3/uL Neut % (Auto) (50-75) % Lymph % (Auto) (25-40) % Waller % (Auto) (3-14) % Eos % (Auto) (2-4) % Baso % (Auto) (0-2) % Neut # (Auto) (4618-1477) /uL Lymph # (Auto) (5020-5433) /uL Waller # (Auto) (0-900) /uL Eos # (Auto) (0-450) /uL Baso # (Auto) (0-100) /uL RBC Morphology Poikilocytosis Anisocytosis Sodium (137-145) mmol/L Potassium (3.4-5.1) mmol/L Chloride (98-107) mmol/L Carbon Dioxide (22-32) mmol/L BUN (9-20) mg/dL Creatinine (0.66-1.25) mg/dL Estimated GFR (>60) mL/min BUN/Creatinine Ratio (6-22) Glucose (70-99) mg/dL Lactate 2.0 (0.7-2.1) mmol/L Calcium (8.4-10.2) mg/dL Magnesium (1.6-2.3) mg/dL Total Bilirubin (0.2-1.3) mg/dL AST (17-59) IU/L ALT (<50) IU/L Alkaline Phosphatase (38-126) U/L Troponin I 0.022 (0.01-0.034) ng/mL NT-Pro-B Natriuret Pep (<450) pg/mL Total Protein (6.3-8.2) g/dL Albumin (3.5-5.0) g/dL Globulin (1.7-4.1) g/dL Albumin/Globulin Ratio (1.0-2.8) Lipase (23-300) U/L Urine Color Urine Appearance Urine pH (4.5-8.0) Ur Specific Platinum (1.000-1.035) Urine Protein (Negative) Urine Glucose (UA) (Negative) g/dL Urine Ketones (NEGATIVE) Urine Occult Blood (Negative) Urine Nitrate (Negative) Urine Bilirubin (NEGATIVE) Urine Urobilinogen (0.2) E.U./dL Ur Leukocyte Esterase (NEGATIVE) Urine RBC (0-5/HPF) Urine WBC (0-5/HPF) Ur Squamous Epith Cells (0-5/HPF) Amorphous Sediment Urine Bacteria (None) Urine Yeast (None) Ur Culture Indicated? Vol Urine Centrifuged SARS-CoV-2 (PCR) (Negative) Influenza A (RT-PCR) (NEGATIVE) Influenza B (RT-PCR) (NEGATIVE) RSV (PCR) (Negative) Imaging Data CT scan - abdomen/pelvis: Radiologist's Impression: [address] [address] [address] Scan Report Signed Patient: Addy Fritz MR#: [id number] : 1940 Acct:[id number] Age/Sex: 85 / M Date of Service: 07/09/25 Loc: ED Accession Number: [id number] Procedure: CT abdomen pelvis w con Ordering Provider: Mahamed Hicks D.O. PROCEDURE: CT ABDOMEN PELVIS W CON INDICATIONS: hx prostate ca/ weakness TECHNIQUE: After the administration of intravenous contrast, axial sections acquired from the lung bases to the pubic symphysis. Coronal and sagittal reformats were performed. For radiation dose reduction, the following was used: automated exposure control, adjustment of mA and/or kV according to patient size. COMPARISON: [facility], CT, CT CHEST ABDOMEN PELVIS WITH CONTRAST, 01/30/2025, 12:21. FINDINGS: Image quality: Diagnostic. Lower Chest: Trace pleural effusions. Bibasilar atelectasis. Indeterminate 4-5 mm nodule in the left lower lobe, new from prior . ABDOMEN: Liver: No solid mass. Gallbladder: Absent. Biliary ducts: Pneumobilia, with choledochojejunostomy. Pancreas: Prior Whipple. Atrophy of the pancreatic parenchyma. Ductal irregularity. Gas within the duct . Spleen: Enlarged, with calcified granuloma. Adrenal Glands: No adrenal nodules. Kidneys and Ureters: No hydronephrosis. No solid mass. No complex renal cystic lesion which requires follow up. Stomach and Bowel: Normal colonic caliber, without significant wall thickening. Large colonic stool load. Colonic diverticulosis without evidence of diverticulitis. Peritoneum: No abnormal intraperitoneal fluid. No free air. Ventral Wall: Macro on umbilical Abdominal Nodes: No retroperitoneal or mesenteric adenopathy by size criteria. Vessels: Aorta and inferior vena cava are normal in size. PELVIS: Pelvic Organs: Prostate is enlarged. Bladder: Bladder diverticula, indicating chronic outlet obstruction . Pelvic Nodes: No enlarged lymph nodes. Miscellaneous: No inguinal hernias are seen. Bones: Scattered osseous metastatic disease. Pathologic fracture of the L2 vertebral body, without endplate retropulsion. IMPRESSION: Moderate colonic stool load. Colonic diverticulosis without evidence of diverticulitis. Stable pathologic fracture of the L2 vertebral body without endplate retropulsion. Scattered sclerotic osseous metastasis. Prior Whipple. Pancreatic ductal irregularity and atrophy is similar to prior, and likely a sequela of chronic parenchymal disease. Indeterminate left lower lobe solid pulmonary nodule measuring 4-5 mm, new from prior. Dictated by: Medardo Landis M.D. on 07/09/2025 at 10:53 Approved by: Medardo Landis M.D. on 07/09/2025 at 11:00 Chest x-ray: Radiologist's Impression: [address] [address] XRay Report Signed Patient: Addy Fritz MR#: [id number] : 1940 Acct:[id number] Age/Sex: 85 / M Date of Service: 07/09/25 Loc: ED Accession Number: [id number] Procedure: XR chest 1V Ordering Provider: Mahamed Hicks D.O. PROCEDURE: XR CHEST 1V INDICATIONS: hx prostate ca/ weakness TECHNIQUE: One view of the chest was acquired. COMPARISON: [facility], CR, XR CHEST 1V, 10/21/2024, 9:46. [facility], CR, XR CHEST 1V, 05/05/2022, 13:51. FINDINGS: Surgical changes and devices: None. Lungs and pleura: Lungs are clear. No pleural effusions or pneumothorax. Left basilar atelectasis. Mediastinum: Mediastinal contours appear normal. Heart size is normal. Bones and chest wall: No suspicious bony lesions. Overlying soft tissues appear unremarkable. IMPRESSION: No acute cardiopulmonary abnormality is seen. CT scan - head: Radiologist's Impression: [address] [address] [address] Scan Report Signed Patient: Addy Fritz MR#: [id number] : 1940 Acct:[id number] Age/Sex: 85 / M Date of Service: 07/09/25 Loc: ED Accession Number: [id number] Procedure: CT head/brain wo con Ordering Provider: Mahamed Hicks D.O. PROCEDURE: CT HEAD/BRAIN WO CON INDICATIONS: hx prostate ca/ weakness TECHNIQUE: Noncontrast 4.5 mm thick angled axial sections acquired from the foramen magnum to the vertex, with coronal and sagittal reformats. For radiation dose reduction, the following was used: automated exposure control, adjustment of mA and/or kV according to patient size. COMPARISON: None. FINDINGS: Image quality: Diagnostic. CSF spaces: Basal cisterns are patent. No extra-axial fluid collections. The ventricles are symmetric in size and shape. Brain: No intracranial bleeds or mass effect. There is cerebral volume loss, with resultant ventricular and sulcal prominence. There are periventricular and deep white matter chronic small vessel ischemic changes. There is intracranial internal carotid artery atherosclerosis. Skull and face: Calvarium and visualized facial bones appear intact, without suspicious lesions. Sinuses: Visualized sinuses and mastoids are clear. IMPRESSION: No acute intracranial pathology. Dictated by: Medardo Landis M.D. on 07/09/2025 at 10:51 Approved by: Medardo Landis M.D. on 07/09/2025 at 10:52 ECG Data Interpretation: NSR HR 76 LAD SD 154 QRS [address]-t wave change Unchanged from 10/21/24 MDM Narrative Medical decision making narrative: All labwork, vital signs, systems technician note, medication list, previous ER visits and all imaging studies reviewed. WBC 5.1 hg 8.8 plt 148. NA 131 K 3.2 Cl 102 C02 23 BUn 23 Cr 0.72 Glu 116 lactic acid 2.9 BNP 2110 lipase 10 patient given fluids LR 1L bolus x2, mag citrate, potassium solution and Rocephin here. Urinalysis +2 occult blood positive nitrites trace protein trace ketones many bacteria. CT head showed no acute intracranial pathology. Chest x-ray showed ?no acute cardiopulmonary abnormalities. CT abdomen pelvis showed moderate colonic stool load colonic diverticulosis without evidence of diverticulitis. Stable pathologic fracture of the L2 vertebral body without endplate retropulsion. Scattered sclerotic osseous metastases. Indeterminate left lower lobe solid pulmonary nodule measuring 4-5 mm new from prior. Discharge Plan Departure Patient Disposition: Admitted as Observation Clinical Impression: Weakness, Acute UTI
--- NOTE | 2025-07-09 11:02 | EKG_ITS ---
[id number] [address] Test Date: 2025-07-09 Pat Name: Addy Fritz Department: [facility] Room: Gender: Male [employer]ician: SUYAPA : 1940 Requested By: Order Number: [id number] Reading MD: Mahamed Tovar MD Measurements Intervals [place] Rate: 76 P: 51 MS: 154 QRS: -34 QRSD: 98 T: 27 QT: 388 QTc: 436 Interpretive Statements Normal sinus rhythm Left axis deviation Low voltage QRS Cannot rule out Anterior infarct , age undetermined Electronically Signed On 07-09-2025 13:52:24 PDT by Mahamed Tovar MD
[2025-07-09 11:49] LABS: COVID-19 CEPHEID 4-PLEX PCR Negative (Negative); Influenza A - CEPHEID Flu A NEGATIVE (NEGATIVE); Influenza B - CEPHEID Flu B NEGATIVE (NEGATIVE)
[2025-07-09] MEDS: LACTATED RINGERS 1,000 ML 1000 ML IV (11:50)
[2025-07-09 12:00] LABS: Add Manual Diff / Slide Review NO; Hematocrit 25.3 % (41-53); Hemoglobin 8.8 g/dL (13.5-17.5); Lymphocytes Absolute Auto 200 /uL (1100-4500); Mean Corpuscular HGB Conc 34.6 % (30-36); Mean Corpuscular Hemoglobin 44.1 PG (26-34); Mean Corpuscular Volume 127.2 fL (80-100); Platelet Count 148 X10^3/uL (150-400)
[2025-07-09 12:09] LABS: Alanine Aminotransferase 30 IU/L (<50); Albumin 3.4 g/dL (3.5-5.0); Albumin Globulin Ratio 1.5 (1.0-2.8); Alkaline Phosphatase 46 U/L (38-126); Blood Urea Nitrogen 21 mg/dL (9-20); Calcium 8.5 mg/dL (8.4-10.2); Carbon Dioxide 23 mmol/L (22-32); Chloride 102 mmol/L (98-107); Estimated Glomerular Filt Rate > 60 mL/min (>60); Globulin 2.2 g/dL (1.7-4.1); Glucose 116 mg/dL (70-99); HEMOLYSIS < 15 (0-50); Lactate (Lactic Acid) 2.9 mmol/L (0.7-2.1); Lipase 10 U/L (23-300); Magnesium 1.9 mg/dL (1.6-2.3); Potassium 3.2 mmol/L (3.4-5.1); Sodium 131 mmol/L (137-145); Total Protein 5.6 g/dL (6.3-8.2)
[2025-07-09 12:10] LABS: Anisocytosis 1+; Poikilocytosis 1+
[2025-07-09 12:21] LABS: NT-proBNP (BNP-Adult 18+) 2110 pg/mL (<450); Troponin I 0.028 ng/mL (0.01-0.034)
[2025-07-09 13:08] LABS: Appearance Urine UA CLEAR; Bilirubin Urine UA NEGATIVE (NEGATIVE); Color Urine UA YELLOW; Glucose Urine UA NEGATIVE (Negative); Ketones Urine UA TRACE (NEGATIVE); Leukocyte Esterase Urine UA NEGATIVE (NEGATIVE); Nitrite Urine UA POSITIVE (Negative); Occult Blood Urine UA 2+ (Negative); Protein Urine UA TRACE (Negative); Specific Gravity Urine UA 1.015 (1.000-1.035); Urobilinogen Urine UA 1.0 E.U./dL (0.2); pH Urine UA 6.0 (4.5-8.0)
[2025-07-09 13:17] LABS: Culture Indicated Urine Specimen Cultured
[2025-07-09 13:32] LABS: Reflexed Lactate in 2 Hours Y
[2025-07-09] MEDS: POTASSIUM CHLORIDE 20 MEQ/15 ML UDC 40 MEQ PO (13:36)
[2025-07-09 14:09] LABS: Lactate 2HR (Lactic Acid Rflx) 2.0 mmol/L (0.7-2.1)
[2025-07-09 14:22] LABS: Troponin I 0.022 ng/mL (0.01-0.034)
--- NOTE | 2025-07-09 15:55 | PC.NURSE ---
Late entry: Patient did not have 2nd liter of LR. Only 1 liter of LR infused in the ER.
[2025-07-09] MEDS: SODIUM CHLORIDE 0.9% 1,000 ML 100 ML IV (16:25)
--- NOTE | 2025-07-09 20:25 | PM.HP.1 ---
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 He is currently being treated for his metastatic prostate cancer with oral chemotherapy and low-dose prednisone. He states he is now chronically very fatigued. However, he notes this morning after sliding to the floor he was unable to get back up which is unusual for him. He did have 1 episode of nausea and vomiting as well. He has not felt as though he was emptying his bladder which she notes is also somewhat unusual. He typically self caths twice daily and urinate throughout the day. EMS was contacted when he was unable to get back up and they did lift him back up and recommended he present to the ER. He declined at that time, but his son did ultimately convinced him to come to the ER to be assessed. In the emergency department, he was afebrile with fairly normal vital signs. He did have somewhat low blood pressures ranging from 96/56 to 118/56. His white blood cell count was normal. Hemoglobin 8.8, hematocrit 25.3, MCV 127.2, platelets 148. Sodium was 131, potassium 3.2, chloride 102, bicarb 23, BUN 21, creatinine 0.72. Initial lactate was 2.9. After IV fluids it came down to 2.0. BNP was 2110. Troponins were normal x2. UA revealed trace protein trace ketones 2+ occult blood positive nitrites and many bacteria. COVID, RSV, and flu a and B were negative. Urine and blood cultures are pending at this time. Previous urine cultures from September of this year were notable for colonization with Staph epidermidis and Enterococcus. [facility] Medical History Weight loss Left-sided thoracic back pain Osteoarthritis Sleep apnea (~2007) Peripheral neuropathy (~2020) Mumps Measles Chicken pox Tinnitus Hearing loss (~2000) Cataracts, bilateral (~2020) History of elevated PSA (~2013) Hypothyroidism (~2009) Peripheral vascular disease Pancreatic cancer (~2019) TIA (transient ischemic attack) (~2022) Oral thrush Ampullary carcinoma Jaundice Fatigue Pruritus 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) KEVIN (obstructive sleep apnea) BPH (benign prostatic hyperplasia) (~2013) Adult hypothyroidism Surgical History Anesthesia H/O Whipple procedure H/O abdominal surgery (~10/2020) History of cholecystectomy History of tonsillectomy (~194) Family History Sister Breast cancer in female Dementia Mother Breast cancer in female Unknown Breast cancer in female Father CVA (cerebral vascular accident) Hypertension Brother History of heart disease Social History household members: spouse Smoking Status: Never smoker alcohol intake: never substance use type: does not use Meds Home Medications and Allergies Home Medications ?Medication ?Instructions ?Recorded ?Confirmed ?Type MULTIVITAMIN/MINERALS (Thera M 1 tab PO Q DAY ##0 03/07/10 07/09/25 History Plus Tablet) ascorbic acid (vitamin C) 500 mg 500 mg PO DAILY 12/24/20 07/09/25 History tablet (Vitamin C) cholecalciferol (vitamin D3) 125 125 mcg PO DAILY 12/24/20 07/09/25 History mcg (5,000 unit) tablet (Vitamin D3) [id number] 2 cap PO TID PRN Digestion 12/24/20 07/09/25 History 24,000-76,000-120,000 unit capsule,delayed rel (Creon) zinc 50 mg capsule 50 mg PO DAILY 12/24/20 07/09/25 History lysine 500 mg capsule 1,500 mg PO DAILY PRN Cold Sores 01/03/21 07/09/25 History melatonin 5 mg tablet 5 mg PO BEDTIME PRN Sleep 01/03/21 07/09/25 History aspirin 81 mg tablet 81 mg PO DAILY 09/01/22 07/09/25 History hydrocortisone 1 % topical cream 1 applic topical TID PRN itching 06/01/24 07/09/25 Rx (Cortisone (hydrocortisone)) #28.35 grams levothyroxine 112 mcg tablet 112 mcg PO DAILY 06/20/24 07/09/25 History abiraterone 250 mg tablet 500 mg PO DAILY 08/31/24 07/09/25 History olaparib 150 mg tablet (Lynparza) 300 mg PO BID 04/17/25 07/09/25 History vitamin E mixed 400 unit capsule 400 unit PO DAILY 04/17/25 07/09/25 History prednisone 5 mg tablet 5 mg PO DAILY 06/02/25 07/09/25 History atorvastatin 40 mg tablet 40 mg PO DAILY #90 tabs 06/09/25 07/09/25 Rx tamsulosin 0.4 mg capsule 0.8 mg PO DAILY 07/09/25 07/09/25 History Allergies Allergy/AdvReac Type Severity Reaction Status Date / Time propoxyphene (PROPOXYPHENE) Allergy Severe FACIAL Verified 07/09/25 10:46 SWELLING, RASH clindamycin (CLINDAMYCIN) Allergy Intermediate RASH AND Verified 07/09/25 10:46 C. DIFF omeprazole (From PRILOSEC) Allergy Unknown eye Verified 07/09/25 10:46 swelling sulfamethoxazole (From Allergy Unknown rash Verified 07/09/25 10:46 BACTRIM) sulfur dioxide (SULFUR Allergy Unknown rash Verified 07/09/25 10:46 DIOXIDE) trimethoprim (From BACTRIM) Allergy Unknown rash Verified 07/09/25 10:46 Review of Systems Review of Systems Narrative: All other systems were reviewed negative Exam Vital Signs (past 8 hours): - 07/09/25 12:30 07/09/25 12:30 07/09/25 13:00 Pulse Rate 68 75 Blood Pressure 112/60 Pulse Oximetry 95 91 Oxygen Delivery Method 07/09/25 13:00 07/09/25 13:30 07/09/25 13:30 Pulse Rate 66 Blood Pressure 118/56 L 106/59 L Pulse Oximetry 98 Oxygen Delivery Method 07/09/25 14:00 07/09/25 14:00 07/09/25 14:30 Pulse Rate 66 66 Blood Pressure 107/59 L Pulse Oximetry 98 99 Oxygen Delivery Method 07/09/25 14:30 07/09/25 15:00 07/09/25 15:00 Pulse Rate 67 Blood Pressure 103/57 L 96/56 L Pulse Oximetry 96 Oxygen Delivery Method 07/09/25 16:00 Pulse Rate Blood Pressure Pulse Oximetry Oxygen Delivery Method Room Air Oxygen Delivery Method Room Air Narrative Exam Narrative: GEN: Elderly male, Alert and oriented x3, no acute distress HEENT: Normocephalic, face symmetric, pupils equal round reactive to light, extraocular movements intact, sclerae anicteric, conjunctiva clear, nares patent, oropharynx reveals an intact soft and hard palate with moist mucous membranes, dentition is fair NECK: Supple, no lymphadenopathy, thyroid without enlargement or nodularity, carotids no bruits CHEST: Respiratory excursions symmetric, clear to auscultation bilaterally CV: Regular rate and rhythm, no murmurs, rubs, gallops, PMI nondisplaced ABD: Soft, mild suprapubic tenderness,, nondistended, bowel sounds present in all 4 quadrants, no organomegaly or masses appreciated EXTR: Warm, well perfused, no clubbing/cyanosis/edema SKIN: Warm and dry, without rash NEURO: Alert and oriented x3, grossly intact Objective Labs 07/09/25 11:50 07/09/25 11:50 Labs: Laboratory Results - last 24 hr 07/09/25 07/09/25 07/09/25 11:05 11:50 13:00 WBC 5.1 RBC 1.99 L Hgb 8.8 L Hct 25.3 L MCV 127.2 H MCH 44.1 H MCHC 34.6 RDW 17.6 H Plt Count 148 L Neut % (Auto) 93.5 H Lymph % (Auto) 3.6 L [place] % (Auto) 2.6 L Eos % (Auto) 0.0 L Baso % (Auto) 0.3 Neut # (Auto) 4700 Lymph # (Auto) 200 L [place] # (Auto) 100 Eos # (Auto) 0 Baso # (Auto) 0 RBC Morphology Not Reportable Poikilocytosis 1+ H Anisocytosis 1+ H Sodium 131 L Potassium 3.2 L Chloride 102 Carbon Dioxide 23 BUN 21 H Creatinine 0.72 Estimated GFR > 60 BUN/Creatinine Ratio 29.2 H Glucose 116 H Lactate 2.9 H Calcium 8.5 Magnesium 1.9 Total Bilirubin 0.9 AST 37 ALT 30 Alkaline Phosphatase 46 Troponin I 0.028 NT-Pro-B Natriuret Pep 2110 H Total Protein 5.6 L Albumin 3.4 L Globulin 2.2 Albumin/Globulin Ratio 1.5 Lipase 10 L Urine Color Yellow Urine Appearance Clear Urine pH 6.0 Ur Specific [place] 1.015 Urine Protein Trace H Urine Glucose (UA) Negative Urine Ketones Trace H Urine Occult Blood 2+ H Urine Nitrate Positive H Urine Bilirubin Negative Urine Urobilinogen 1.0 Ur Leukocyte Esterase Negative Urine RBC 10-30/hpf H Urine WBC 0-1/hpf Ur Squamous Epith Cells 0-1 /hpf Amorphous Sediment 2+ Urine Bacteria Many (>30) H Urine Yeast 0-1/hpf Ur Culture Indicated? Specimen cultured Vol Urine Centrifuged 10ml (spun) SARS-CoV-2 (PCR) Negative Influenza A (RT-PCR) Flu a negative Influenza B (RT-PCR) Flu b negative RSV (PCR) Negative 07/09/25 13:44 WBC RBC Hgb Hct MCV MCH MCHC RDW Plt Count Neut % (Auto) Lymph % (Auto) [place] % (Auto) Eos % (Auto) Baso % (Auto) Neut # (Auto) Lymph # (Auto) [place] # (Auto) Eos # (Auto) Baso # (Auto) RBC Morphology Poikilocytosis Anisocytosis Sodium Potassium Chloride Carbon Dioxide BUN Creatinine Estimated GFR BUN/Creatinine Ratio Glucose Lactate 2.0 Calcium Magnesium Total Bilirubin AST ALT Alkaline Phosphatase Troponin I 0.022 NT-Pro-B Natriuret Pep Total Protein Albumin Globulin Albumin/Globulin Ratio Lipase Urine Color Urine Appearance Urine pH Ur Specific [place] Urine Protein Urine Glucose (UA) Urine Ketones Urine Occult Blood Urine Nitrate Urine Bilirubin Urine Urobilinogen Ur Leukocyte Esterase Urine RBC Urine WBC Ur Squamous Epith Cells Amorphous Sediment Urine Bacteria Urine Yeast Ur Culture Indicated? Vol Urine Centrifuged SARS-CoV-2 (PCR) Influenza A (RT-PCR) Influenza B (RT-PCR) RSV (PCR) Assessment & Plan Assessment & Plan narrative: 1. Urinary tract infection in a patient with known urinary retention He received ceftriaxone in the emergency department. This will be continued. He is also on tamsulosin 0.8 mg daily. Postvoid residual will be performed and a catheter will be placed if necessary. Otherwise, will plan to continue self cathing twice daily per his preference. Await urine culture results. 2. Constipation A CT scan was done in the emergency department which did reveal a significant stool burden. Mag citrate was ordered in the ER but he declined it. He did have a small bowel movement this evening. I have ordered MiraLax and senna. 3. Metastatic prostate cancer He is presently treated with abiraterone, olaparib and prednisone daily. He states he also receives Lupron every 3 months. Will hold his oral chemo given his acute infection. He is only on 5 mg of prednisone. Will discontinue that for now as well 4. Pathologic L2 vertebral body fracture He has not complaining of any pain at this time. He does have scattered sclerotic osseous metastases 5. History of ampullary adenocarcinoma He has had a prior Whipple procedure. Continue pancreatic enzymes. 6. Left lower lobe pulmonary nodule This is new and noted on today's abdominal and pelvic CT. He should have outpatient follow-up. 7. Generalized weakness Will have PT and OT assess and make recommendations Code status Full per patient Prophylaxis Will start Lovenox Disposition Admit to acute care under observation status. Time-Based Coding :: [TOTAL MINUTES] spent with patient and on the chart (including review of chart, obtaining history, exam, reviewing outside data, placing orders, documenting exam and treatment plan, and counseling patient) on [DATE].
[2025-07-09] MEDS: SENNOSIDES 8.6 MG TABLET 17.2 MG PO (20:49)
[2025-07-09] MEDS: SODIUM CHLORIDE 0.9% 500 ML 1000 ML IV (21:30)
[2025-07-10] VITALS (52 sets, daily range): BP systolic 80–130; BP diastolic 45–65; PULSE 46–84; RESP 13–26; TEMP 36.4–37.1; O2SAT 96–100
[2025-07-10] MEDS: SODIUM CHLORIDE 0.9% 500 ML 1000 ML IV ×2 (00:05→00:57)
[2025-07-10 02:10] LABS: Hemoglobin 7.3 g/dL (13.5-17.5); Mean Corpuscular HGB Conc 35.6 % (30-36); Mean Corpuscular Hemoglobin 45.1 PG (26-34); Mean Corpuscular Volume 126.6 fL (80-100); Platelet Count 117 X10^3/uL (150-400)
[2025-07-10] MEDS: SODIUM CHLORIDE 0.9% 1,000 ML 100 ML IV (02:10)
[2025-07-10 02:20] LABS: Blood Urea Nitrogen 18 mg/dL (9-20); Calcium 7.4 mg/dL (8.4-10.2); Carbon Dioxide 22 mmol/L (22-32); Chloride 108 mmol/L (98-107); Estimated Glomerular Filt Rate > 60 mL/min (>60); Glucose 90 mg/dL (70-99); HEMOLYSIS < 15 (0-50); Lactate (Lactic Acid) 0.7 mmol/L (0.7-2.1); Magnesium 1.9 mg/dL (1.6-2.3); Potassium 3.6 mmol/L (3.4-5.1); Sodium 130 mmol/L (137-145)
[2025-07-10 02:24] LABS: Add Manual Diff / Slide Review YES; Hematocrit 20.5 % (41-53)
[2025-07-10 02:57] LABS: Band Neutrophils Percent 3.0 % (3-7); Lymphocytes Percent Manual 18.0 % (25-45); Monocytes Percent Manual 1.0 % (2-11); Neutrophils Absolute Manual 4293 /uL (3000-5900); RBC Morphology Normal Morphology; Segmented Neutrophils Percent 78.0 % (38-70); Total Cells Counted 100
--- NOTE | 2025-07-10 03:40 | PM.EVENT ---
Event Note Date Patient Seen: 07/10/25 Time Patient Seen: 01:41 Event Note (Rapid Response, Code, or fall): Was notified by the patient's nurse that the patient systolic blood pressure drops to the 70s and 80s. Of note the patient was admitted for UTI and sepsis. The patient is already on IV ceftriaxone. Last lactate normalized at 2.0 from 2.7 in the ER. Patient was reported to have 1 L of IV bolus in the ER. Additional IV bolus of 1.5 L ordered and the patient systolic still less than 80. Transferred patient to ICU for close monitoring with initiation of Levophed. Will repeat lactic acid. Will continue to monitor patient's hemodynamics closely.
[2025-07-10] MEDS: NOREPINEPHRINE BITARTRATE/D5W 4 MG/250 ML PLAST..BAG 27.216 MG IV (04:48)
--- NOTE | 2025-07-10 08:40 | P.PN_ITS ---
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 He is currently being treated for his metastatic prostate cancer with oral chemotherapy and low-dose prednisone. He states he is now chronically very fatigued. However, he notes this morning after sliding to the floor he was unable to get back up which is unusual for him. He did have 1 episode of nausea and vomiting as well. He has not felt as though he was emptying his bladder which she notes is also somewhat unusual. He typically self caths twice daily and urinate throughout the day. EMS was contacted when he was unable to get back up and they did lift him back up and recommended he present to the ER. He declined at that time, but his son did ultimately convinced him to come to the ER to be assessed. In the emergency department, he was afebrile with fairly normal vital signs. He did have somewhat low blood pressures ranging from 96/56 to 118/56. His white blood cell count was normal. Hemoglobin 8.8, hematocrit 25.3, MCV 127.2, platelets 148. Sodium was 131, potassium 3.2, chloride 102, bicarb 23, BUN 21, creatinine 0.72. Initial lactate was 2.9. After IV fluids it came down to 2.0. BNP was 2110. Troponins were normal x2. UA revealed trace protein trace ketones 2+ occult blood positive nitrites and many bacteria. COVID, RSV, and flu a and B were negative. Urine and blood cultures are pending at this time. Previous urine cultures from September of this year were notable for colonization with Staph epidermidis and Enterococcus. S: He feels better today. Has a Harrington catheter in place but does not have 1 usually. He has no fevers and came off from norepinephrine this morning. O: NAD, alert and oriented. Fluent speech. Lungs are clear, normal rate and effort. Heart is regular, no murmur gallop or rub. Abdomen is soft, non distended. Extremities are free of edema. Har[place]. IMAGING: CTH: No acute intracranial pathology. CXR: No acute cardiopulmonary abnormality is seen. CT AP: Moderate colonic stool load. Colonic diverticulosis without evidence of diverticulitis. Stable pathologic fracture of the L2 vertebral body without endplate retropulsion. Scattered sclerotic osseous metastasis. Prior Whipple. Pancreatic ductal irregularity and atrophy is similar to prior, and likely a sequela of chronic parenchymal disease. Indeterminate left lower lobe solid pulmonary nodule measuring 4-5 mm, new from prior. A/P: 1. Urinary tract infection in a patient with known urinary retention He received ceftriaxone in the emergency department. There was a question of urine retention after he was in and out catheter which she does at home. We will confirm how well he has been doing with his and get his supplies to see what happens when he tries to do his own self catheterization here. 2. Constipation, active. A CT scan was done in the emergency department which did reveal a significant stool burden. 3. Metastatic prostate cancer, active. He is presently treated with abiraterone, olaparib and prednisone daily. He states he also receives Lupron every 3 months. Will hold his oral chemo given his acute infection. He is only on 5 mg of prednisone. Will discontinue that for now as well 4. Pathologic L2 vertebral body fracture, active. He has not complaining of any pain at this time. He does have scattered sclerotic osseous metastases 5. History of ampullary adenocarcinoma, active. He has had a prior Whipple procedure. Continue pancreatic enzymes. 6. Left lower lobe pulmonary nodule, active. This is new and noted on today's abdominal and pelvic CT. He should have outpatient follow-up. 7. Generalized weakness, active. Will have PT and OT assess and make recommendations PLAN: -continue antibiotics, ceftriaxone, pending culture. -we will probably take his Har[place] out and monitor his self-care ability or next 12 hours. Code status Full per patient Prophylaxis Will start Lovenox Exam Vital Signs (past 8 hours): - 07/10/25 02:02 07/10/25 02:30 07/10/25 02:30 Temperature Pulse Rate 61 58 L Respiratory Rate 16 15 Blood Pressure 86/54 L Pulse Oximetry 100 100 Oxygen Flow Rate 07/10/25 03:00 07/10/25 03:00 07/10/25 03:30 Temperature Pulse Rate 58 L Respiratory Rate 15 Blood Pressure 88/53 L 91/54 L Pulse Oximetry 100 Oxygen Flow Rate 07/10/25 03:30 07/10/25 04:00 07/10/25 04:00 Temperature 97.5 F L Pulse Rate 57 L 57 L Respiratory Rate 13 13 Blood Pressure 86/51 L Pulse Oximetry 100 100 Oxygen Flow Rate 2 07/10/25 04:30 07/10/25 04:30 07/10/25 05:00 Temperature Pulse Rate 58 L 48 L Respiratory Rate 17 17 Blood Pressure 84/52 L Pulse Oximetry 100 100 Oxygen Flow Rate 2 07/10/25 05:01 07/10/25 05:01 07/10/25 05:30 Temperature Pulse Rate 46 L 62 Respiratory Rate 17 21 Blood Pressure 130/58 L Pulse Oximetry 100 100 Oxygen Flow Rate 07/10/25 05:31 07/10/25 05:31 07/10/25 06:00 Temperature Pulse Rate 62 52 L Respiratory Rate 22 13 Blood Pressure 84/65 L Pulse Oximetry 100 100 Oxygen Flow Rate 2 07/10/25 06:00 07/10/25 06:30 07/10/25 06:30 Temperature Pulse Rate 55 L Respiratory Rate 17 Blood Pressure 117/58 L 113/56 L Pulse Oximetry 100 Oxygen Flow Rate 2 Oxygen Delivery Method Room Air Oxygen Flow Rate 2 Objective Labs 07/10/25 01:53 07/10/25 01:53 Labs: Laboratory Results - last 24 hr 07/09/25 07/09/25 07/09/25 11:05 11:50 13:00 WBC 5.1 RBC 1.99 L Hgb 8.8 L Hct 25.3 L MCV 127.2 H MCH 44.1 H MCHC 34.6 RDW 17.6 H Plt Count 148 L Neut % (Auto) 93.5 H Lymph % (Auto) 3.6 L [place] % (Auto) 2.6 L Eos % (Auto) 0.0 L Baso % (Auto) 0.3 Neut # (Auto) 4700 Lymph # (Auto) 200 L [place] # (Auto) 100 Eos # (Auto) 0 Baso # (Auto) 0 Total Counted Seg Neutrophils % Band Neutrophils % Lymphocytes % (Manual) Monocytes % (Manual) Neutrophils # (Manual) RBC Morphology Not Reportable Poikilocytosis 1+ H Anisocytosis 1+ H Sodium 131 L Potassium 3.2 L Chloride 102 Carbon Dioxide 23 BUN 21 H Creatinine 0.72 Estimated GFR > 60 BUN/Creatinine Ratio 29.2 H Glucose 116 H Lactate 2.9 H Calcium 8.5 Magnesium 1.9 Total Bilirubin 0.9 AST 37 ALT 30 Alkaline Phosphatase 46 Troponin I 0.028 NT-Pro-B Natriuret Pep 2110 H Total Protein 5.6 L Albumin 3.4 L Globulin 2.2 Albumin/Globulin Ratio 1.5 Lipase 10 L Urine Color Yellow Urine Appearance Clear Urine pH 6.0 Ur Specific [place] 1.015 Urine Protein Trace H Urine Glucose (UA) Negative Urine Ketones Trace H Urine Occult Blood 2+ H Urine Nitrate Positive H Urine Bilirubin Negative Urine Urobilinogen 1.0 Ur Leukocyte Esterase Negative Urine RBC 10-30/hpf H Urine WBC 0-1/hpf Ur Squamous Epith Cells 0-1 /hpf Amorphous Sediment 2+ Urine Bacteria Many (>30) H Urine Yeast 0-1/hpf Ur Culture Indicated? Specimen cultured Vol Urine Centrifuged 10ml (spun) SARS-CoV-2 (PCR) Negative Influenza A (RT-PCR) Flu a negative Influenza B (RT-PCR) Flu b negative RSV (PCR) Negative 07/09/25 07/10/25 13:44 01:53 WBC 5.3 RBC 1.62 L Hgb 7.3 L Hct 20.5 L* MCV 126.6 H MCH 45.1 H MCHC 35.6 RDW 17.5 H Plt Count 117 L Neut % (Auto) Not Reportable Lymph % (Auto) Not Reportable [place] % (Auto) Not Reportable Eos % (Auto) Not Reportable Baso % (Auto) Not Reportable Neut # (Auto) Lymph # (Auto) Not Reportable [place] # (Auto) Not Reportable Eos # (Auto) Baso # (Auto) Not Reportable Total Counted 100 Seg Neutrophils % 78.0 H Band Neutrophils % 3.0 Lymphocytes % (Manual) 18.0 L Monocytes % (Manual) 1.0 L Neutrophils # (Manual) 4293 RBC Morphology Normal morphology Poikilocytosis Anisocytosis Sodium 130 L Potassium 3.6 Chloride 108 H Carbon Dioxide 22 BUN 18 Creatinine 0.69 Estimated GFR > 60 BUN/Creatinine Ratio 26.1 H Glucose 90 Lactate 2.0 0.7 Calcium 7.4 L Magnesium 1.9 Total Bilirubin AST ALT Alkaline Phosphatase Troponin I 0.022 NT-Pro-B Natriuret Pep Total Protein Albumin Globulin Albumin/Globulin Ratio Lipase Urine Color Urine Appearance Urine pH Ur Specific [place] Urine Protein Urine Glucose (UA) Urine Ketones Urine Occult Blood Urine Nitrate Urine Bilirubin Urine Urobilinogen Ur Leukocyte Esterase Urine RBC Urine WBC Ur Squamous Epith Cells Amorphous Sediment Urine Bacteria Urine Yeast Ur Culture Indicated? Vol Urine Centrifuged SARS-CoV-2 (PCR) Influenza A (RT-PCR) Influenza B (RT-PCR) RSV (PCR) PFSH Medical History Weight loss Left-sided thoracic back pain Osteoarthritis Sleep apnea (~2007) Peripheral neuropathy (~2020) Mumps Measles Chicken pox Tinnitus Hearing loss (~2000) Cataracts, bilateral (~2020) History of elevated PSA (~2013) Hypothyroidism (~2009) Peripheral vascular disease Pancreatic cancer (~2019) TIA (transient ischemic attack) (~2022) Oral thrush Ampullary carcinoma Jaundice Fatigue Pruritus 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) KEVIN (obstructive sleep apnea) BPH (benign prostatic hyperplasia) (~2013) Adult hypothyroidism Surgical History Anesthesia H/O Whipple procedure H/O abdominal surgery (~10/2020) History of cholecystectomy History of tonsillectomy (~194) Family History Sister Breast cancer in female Dementia Mother Breast cancer in female Unknown Breast cancer in female Father CVA (cerebral vascular accident) Hypertension Brother History of heart disease Social History household members: spouse Smoking Status: Never smoker alcohol intake: never substance use type: does not use Assessment & Plan Time-Based Coding :: [TOTAL MINUTES] spent with patient and on the chart (including review of chart, obtaining history, exam, reviewing outside data, placing orders, documenting exam and treatment plan, and counseling patient) on [DATE].
[2025-07-10] MEDS: SODIUM CHLORIDE 0.9% FLUSH 10 ML IV ×2 (09:22→20:49)
[2025-07-10] MEDS: LEVOTHYROXINE 112 MCG TABLET PO (09:22)
[2025-07-10] MEDS: ASPIRIN EC 81 MG TABLET PO (09:22)
[2025-07-10] MEDS: ATORVASTATIN 20 MG TABLET 40 MG PO (09:22)
[2025-07-10] MEDS: SENNOSIDES 8.6 MG TABLET 17.2 MG PO ×2 (09:22→20:48)
[2025-07-10] MEDS: CHOLECALCIFEROL (VITAMIN D3) 5,000 UNIT TABLET 5000 UNIT PO (09:22)
[2025-07-10] MEDS: ENOXAPARIN 40 MG/0.4 ML SYRINGE SUBCUT (09:22)
[2025-07-10] MEDS: MULTIVITAMIN 1 TABLET 1 TAB PO (09:22)
[2025-07-10] MEDS: TAMSULOSIN 0.4 MG CAPSULE 0.8 MG PO (09:23)
[2025-07-10] MEDS: PANTOPRAZOLE DR 40 MG TABLET PO (09:26)
--- NOTE | 2025-07-10 09:30 | PT.IIE ---
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) Cataracts, bilateral (~2020) Chicken pox Fatigue Hearing loss (~2000) History of elevated PSA (~2013) Hypothyroidism (~2009) Jaundice Left-sided thoracic back pain Measles Mumps Oral thrush KEVIN (obstructive sleep apnea) Osteoarthritis Pancreatic cancer (~2019) Peripheral neuropathy (~2020) Peripheral vascular disease Pruritus Sleep apnea (~2007) TIA (transient ischemic attack) (~2022) Tinnitus Weight loss Physical Therapy Inpatient Evaluation/Re-Eval M1 PT/OT-IP Prior Functional Status Start: 07/09/25 16:21 Freq: NEEDED Status: Active Protocol: Document 07/10/25 09:19 [facility] (Rec: 07/10/25 09:29 [facility] [id number]) Medical Review Prior Functional Status Medical History Yes Reviewed Diet/Fluid Regular Consistency Communication A & O x 4 Mobility and Gait used a single point cane, independent Activities of Daily independent Living and IADL's Social History Household Members spouse Living Arrangements House Number of Stairs To 2 stairs with railing Enter/Railing? Home Environment Standard Height Toilet Home Equipment Straight Cane Additional Social Patient reports considering getting a walker History Comment M2 PT-IP Current Condition Start: 07/09/25 16:21 Freq: NEEDED Status: Active Protocol: Document 07/10/25 09:19 [facility] (Rec: 07/10/25 09:29 [facility] [id number]) Physical Therapy Current Condition Current Condition Evaluation Date 07/10/25 M3 PT-IP Subjective Start: 07/09/25 16:21 Freq: NEEDED Status: Active Protocol: Document 07/10/25 09:19 [facility] (Rec: 07/10/25 09:29 [facility] [id number]) Subjective Physical Therapy Visit Type Visit Start Time 08:40 Visit Stop Time 09:05 Physical Therapy Visit Comments Patient Comments Patient reports slept will. Willing to try PT Patient Goals go home with assist of Therapy Pain Assessment Pain When Pain Assessed At Rest Pain Present Pain Present Denied Pain M4 PT-IP Mobility and Gait Start: 07/09/25 16:21 Freq: NEEDED Status: Active Protocol: Document 07/10/25 09:19 [facility] (Rec: 07/10/25 09:29 [facility] [id number]) PT-Bed Mobility Assessment Supine to Sit Supine to Sit Standby Assistance,Head of Bed Elevated PT-Transfer Assessment Sit to and From Stand Sit to and from Contact Guard Assistance,1 Person Assistance,Use of Stand Upper Extremities Equipment Transfer Assistive Bed Rail,Front Wheeled Walker Device Gait Assessment Gait Gait Assistance Contact Guard Assist Required: Distance (Feet) 20 Assistive Devices Assistive Device Gait Belt,Front Wheeled Walker Factors Limiting Gait Function Factors Limiting Decreased Strength Gait Function PT-Balance Assessment Sitting Balance and Reactions Static Sitting Good Balance Ability Dynamic Sitting Good Balance Ability Standing Balance and Reactions Static Standing Good Balance Ability Dynamic Standing Good Balance Ability Device Used FWW M5 PT-IP Objective Assessments Start: 07/09/25 16:21 Freq: NEEDED Status: Active Protocol: Document 07/10/25 09:19 [facility] (Rec: 07/10/25 09:29 [facility] [id number]) Orientation Orientation/Cognition Level of Alertness Alert Orientation Name,Age,Place,Situation Gross Range of Motion Upper Extremity ROM Assessment Within Functional Limits Lower Extremity ROM Assessment Within Functional Limits Strength Upper Extremity Strength Assessment Within Functional Limits Lower Extremity Strength Assessment Within Functional Limits Coordination Assessment Gross Coordination Gross Coordination WNL M7 PT-IP Assessment and Plan Start: 07/09/25 16:21 Freq: NEEDED Status: Active Protocol: Document 07/10/25 09:19 [facility] (Rec: 07/10/25 09:29 [facility] [id number]) PT Summary Assessment and Plan Potential Rehabilitation Good Potential Status of Condition Evolving at Evaluation Summary Impairments Strength,Bed Mobility,Transfers,Gait,Activity Tolerance Assessment Summary Pt. referred to PT after admission for UTI. Patient on O2 per NC with O2 sats at 98-100% during treatment. Assisted patient supine to sit with HOB elevated. Sit to stand with CGA and gait in room 20 ft with FWW, and CGA. Patient steady with gait, no LOB. Requires use of UE's for transfers. Reported fatigue but not SOB, denied dizziness. Prior to admission used SPC. Patient preference is to discharge home with assist of . He would like to obtain FWW. Frequency of Treatment Frequency Of Once a Day Treatment Treatment Plan Physical Therapy Bed Mobility Training,Transfer Training,Gait Training, Treatment Plan Therapeutic Exercise,Discharge Planning Weight Bearing Status Weight Bearing Full Weight Bearing Status Recommendations To Nursing Amount of Assist 1 Person Assist Needed Discharge Recommendations PT Discharge Home with Assistance,SNF Rehab Recommendations Equipment Needed for FWW Home Before Discharge Transportation Needs Private Vehicle at Discharge
--- NOTE | 2025-07-10 11:23 | PC.NURSE ---
Shift Note Levo gtt turned off at 0843 BP 124/58, follow-up BP SBPs greater than 100, MAPs greater than 65. Asymptomatic. Vitals charted, updated.
[2025-07-10 13:14] LABS: Labcorp Creatine Kinase MB <1.0 ng/mL (0.0-10.4)
--- NOTE | 2025-07-10 15:44 | CM.DANOTE ---
Patient is an 85 yo male who was admitted on 07/09/25 for Weakness. Pt has [employer] M[employer] ADV for insurance and his PCP is Dr. Maura Young at [facility]. EMR was reviewed. Per MD, pt with hx of metastatic prostate CA with oral chemo and self caths at baseline for chronic urinary retension. Pt admitted after GLF with weakness and has Acute UTI and constipation and bp issues. Per PT, pt able to ambulate in room with FWW mostly CGA and recommending home with family support and HH and FWW. SW met bedside with pt, spouse, and adult son and DIL and explained role and they confirm pt and spouse live at home in [place] and both have been fairly active and independent at baseline. Pt and spouse still drive but for longer distances family members transport. Pt denies any hx of HH or SNF but in agreement with preference being to discharge home and agreeable to HH. Provided HH Choice list and family preference is [facility] as they have used [facility] for other family members in the past. Pt's niece works at [employer] as an RN and available for additional support or transport if needed. Pt agreeable to using a walker at discharge as he has a cane at home but realizing walker would be helpful. Waiting to confirm from PT if 4WW or FWW recommended. Family aware of [employer] for loaner equipment but also have a couple walkers available if needed as well. SW made [facility] referral to review for [employer] insurance and F2F and orders completed but not sent to [facility] yet. Plan: SW to follow for plan of discharge to home with spouse and family assist and new [facility] referral. SW to fax d/c summary, F2F and orders at discharge. COREY Blair Discharge Planning/Care Management Advanced directive, confirm from FAMILY Start: 07/09/25 16:14 Freq: Q24H Status: Active Protocol: Document 07/09/25 16:14 [facility] (Rec: 07/09/25 16:18 [facility] Desktop) Advance Directive, confirm on record Time 16:18 Person contacted in chart Copy received Yes Advanced directive Yes available on record CM Discharge Assessment Start: 07/09/25 15:08 Freq: Status: Active Protocol: Document 07/10/25 15:42 [facility] (Rec: 07/10/25 15:44 [facility] [id number]) Discharge Planning Assessment Assigned Discharge COREY Boyle [employer] Payable Associate Provider [facility] DPOA/Assigned spouse Wilfrid Designee Name Contact Information [phone] Advance Directives? Yes Advance Directives No on File History Provided By Patient,Significant Other,Medical Record Has Patient been No admitted in last 30 days? Prior Living House Arrangements Household Members spouse Type of Drives own vehicle transporation used prior to admit Independent with ADL Yes 's Is patient alert and Yes oriented? Needs Assistance Managing Medications,Home Chores / Shopping With Caregiver for No Another DME Already Rented / Cane Owned Patient/Family Home with Home Health Preference Barriers to No Discharge Discharge Plan Home with Home Health Transportation Spouse bedside and plans to transport or local family Arrangement will transport Referrals Initiated Home Health If patient plan is Yes home with home health: Has signed face to face form been completed? Medicare Choice List Yes Provided Medicare choice list patient,family reviewed on electronic tablet with SNF/HH Preference [facility] Updated Yes in Patient Room with name and ext. # of Outside Property Agent Review Status In Process Please Provide Date 07/10/25 Initial DC Assessment Was Performed Next Review Type Continued Stay Review
[2025-07-10] MEDS: MELATONIN 3 MG TABLET 6 MG PO (20:49)
[2025-07-11] VITALS (45 sets, daily range): BP systolic 73–143; BP diastolic 50–77; PULSE 55–71; RESP 0–25; TEMP 36.8–37.4; O2SAT 87–100
[2025-07-11] MEDS: SENNOSIDES 8.6 MG TABLET 17.2 MG PO ×2 (08:26→20:10)
[2025-07-11] MEDS: MULTIVITAMIN 1 TABLET 1 TAB PO (08:26)
[2025-07-11] MEDS: CHOLECALCIFEROL (VITAMIN D3) 5,000 UNIT TABLET 5000 UNIT PO (08:26)
[2025-07-11] MEDS: ENOXAPARIN 40 MG/0.4 ML SYRINGE SUBCUT (08:26)
[2025-07-11] MEDS: ATORVASTATIN 20 MG TABLET 40 MG PO (08:26)
[2025-07-11] MEDS: SODIUM CHLORIDE 0.9% FLUSH 10 ML IV ×2 (08:27→20:11)
[2025-07-11] MEDS: LEVOTHYROXINE 112 MCG TABLET PO (08:27)
[2025-07-11] MEDS: ASPIRIN EC 81 MG TABLET PO (08:27)
[2025-07-11] MEDS: TAMSULOSIN 0.4 MG CAPSULE 0.8 MG PO (08:27)
[2025-07-11] MEDS: LIPASE/PROTEASE/AMYLASE 5/17/24 CAP 4 CAP PO (08:31)
--- NOTE | 2025-07-11 08:36 | PM.PN.1 ---
Subjective Subjective Interval history: S: Still feeling weak, no pain. Cultures indicates Staph epidermis, antibiotics being switched for better coverage. O: NAD, alert and oriented. Fluent speech. Lungs are clear, normal rate and effort. Heart is regular, no murmur gallop or rub. Abdomen is soft, non distended. Extremities are free of edema. A/P: 1. Urinary tract infection in a patient with known urinary retention, active. Culture indicates Staph epidermis, antibiotics being changed. He does in and out catheter at home. 2. Constipation, active. A CT scan was done in the emergency department which did reveal a significant stool burden. 3. Metastatic prostate cancer, active. He is presently treated with abiraterone, olaparib and prednisone daily. He states he also receives Lupron every 3 months. Will hold his oral chemo given his acute infection. He is only on 5 mg of prednisone. Will discontinue that for now as well 4. Pathologic L2 vertebral body fracture, active. He has not complaining of any pain at this time. He does have scattered sclerotic osseous metastases 5. History of ampullary adenocarcinoma, active. He has had a prior Whipple procedure. Continue pancreatic enzymes. 6. Left lower lobe pulmonary nodule, active. This is new and noted on today's abdominal and pelvic CT. He should have outpatient follow-up. 7. Generalized weakness, active. Will have PT and OT assess and make recommendations PLAN: -switch antibiotics to Levaquin. -DC his [place] out and monitor his self-care ability or next 12 hours. Needs another night of antibiotics with Levaquin. IRENE: 07/12. Code status Full per patient Prophylaxis Will start Lovenox Exam Vital Signs (past 8 hours): - 07/11/25 01:00 07/11/25 01:00 07/11/25 01:30 Pulse Rate 55 L 56 L Respiratory Rate 18 16 Blood Pressure 122/67 07/11/25 02:00 07/11/25 02:00 07/11/25 02:30 Pulse Rate 58 L 57 L Respiratory Rate 19 18 Blood Pressure 119/65 07/11/25 03:00 07/11/25 03:00 07/11/25 03:30 Pulse Rate 57 L 57 L Respiratory Rate 20 17 Blood Pressure 114/62 07/11/25 04:00 07/11/25 04:00 07/11/25 04:30 Pulse Rate 57 L 55 L Respiratory Rate 18 10 L Blood Pressure 125/64 07/11/25 05:00 07/11/25 05:00 07/11/25 05:30 Pulse Rate 57 L 57 L Respiratory Rate 17 14 Blood Pressure 143/70 H 07/11/25 06:00 07/11/25 06:00 07/11/25 06:30 Pulse Rate 57 L 57 L Respiratory Rate 17 10 L Blood Pressure 119/62 07/11/25 07:00 07/11/25 07:00 Pulse Rate 56 L Respiratory Rate 18 Blood Pressure 127/65 Oxygen Delivery Method Room Air Oxygen Flow Rate 0 Objective Labs 07/10/25 01:53 07/10/25 01:53 Labs: Laboratory Results - last 24 hr 07/09/25 11:50 CK-MB (CK-2) <1.0 PFSH Medical History Weight loss Left-sided thoracic back pain Osteoarthritis Sleep apnea (~2007) Peripheral neuropathy (~2020) Mumps Measles Chicken pox Tinnitus Hearing loss (~2000) Cataracts, bilateral (~2020) History of elevated PSA (~2013) Hypothyroidism (~2009) Peripheral vascular disease Pancreatic cancer (~2019) TIA (transient ischemic attack) (~2022) Oral thrush Ampullary carcinoma Jaundice Fatigue Pruritus 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) KEVIN (obstructive sleep apnea) BPH (benign prostatic hyperplasia) (~2013) Adult hypothyroidism Surgical History Anesthesia H/O Whipple procedure H/O abdominal surgery (~10/2020) History of cholecystectomy History of tonsillectomy (~1946) Family History Sister Breast cancer in female Dementia Mother Breast cancer in female Unknown Breast cancer in female Father CVA (cerebral vascular accident) Hypertension Brother History of heart disease Social History household members: spouse Smoking Status: Never smoker alcohol intake: never substance use type: does not use Assessment & Plan Time-Based Coding :: [TOTAL MINUTES] spent with patient and on the chart (including review of chart, obtaining history, exam, reviewing outside data, placing orders, documenting exam and treatment plan, and counseling patient) on [DATE].
--- NOTE | 2025-07-11 15:50 | PT.IPTN ---
Current Diagnoses Sepsis, unspecified organism (07/09/25) Physical Therapy Treatment Note M2 PT-IP Current Condition Start: 07/09/25 16:21 Freq: NEEDED Status: Active Protocol: Document 07/10/25 09:19 [facility] (Rec: 07/10/25 09:29 [facility] [id number]) Physical Therapy Current Condition Current Condition Evaluation Date 07/10/25 M3 PT-IP Subjective Start: 07/09/25 16:21 Freq: NEEDED Status: Active Protocol: Document 07/11/25 15:50 AB (Rec: 07/11/25 17:45 AB [id number]) Subjective Physical Therapy Visit Type Type Treatment Note Visit Start Time 15:50 Visit Stop Time 16:10 Number of PHLEBOTOMY TECH Visits 0 Physical Therapy Visit Comments Patient Comments agreeable to do PT M4 PT-IP Mobility and Gait Start: 07/09/25 16:21 Freq: NEEDED Status: Active Protocol: Document 07/11/25 15:50 [facility] (Rec: 07/11/25 17:45 [facility] [id number]) PT-Bed Mobility Assessment Supine to Sit Supine to Sit Standby Assistance,Head of Bed Elevated Sit to Supine Sit to Supine Standby Assistance,Head of Bed Elevated PT-Transfer Assessment Sit to and From Stand Sit to and from Contact Guard Assistance,1 Person Assistance,Use of Stand Upper Extremities Equipment Transfer Assistive Gait Belt,Front Wheeled Walker Device Orthotic/Prosthetic No Devices or Brace: Transfers Transfer Destination Chair Transfer Technique ambulated Transfer Ability Level of Assist Contact Guard Assistance,1 Person Assistance,Use of Upper Extremities Comments Mobility Comments pt in bed and spouse in room. pt agreed to do PT. supine to sit SBA with HOB elevated. sit to stand CGA and ambulated in room using fWW CGA ~ 30 ft. presents with shuffling gait. pt sat on the chair. pt agreed to do steps. completed up/down step stool using FWW CGA and cued. completed 2 sets. pt requested to go back to bed. pt ambulated back to bed using FWW CGA. sit to supine SBA. positioned pt in bed. call light and table placed within reach. informed spouse regarding getting FWW for pt. spouse stated that they can borrow from their [facility] and [employer]. Gait Assessment Gait Gait Assistance Contact Guard Assist Required: Distance (Feet) 30 Able to Maintain Yes Weight Bearing Status During Gait Assistive Devices Assistive Device Gait Belt,Front Wheeled Walker Orthotic/Prosthetic No Devices or Brace: Gait Deviations General Gait Pattern Decreased Stride Length,Decreased Feet Clearance Factors Limiting Gait Function Factors Limiting Decreased Activity Tolerance,Decreased Strength,Poor Gait Function Balance Stair Climbing Assessment Evaluation Level of Assist On Contact Guard Assistance Stairs Devices Stair Climbing Front Wheel Walker Assistive Devices Technique/Endurance Stair Climbing Ascend and Descend Direction Stair Climbing Step to Step Technique Number of Steps 1 Climbed Stair Climbing Set # 2 Repetitions (reps) M5 PT-IP Objective Assessments Start: 07/09/25 16:21 Freq: NEEDED Status: Active Protocol: Document 07/10/25 09:19 [facility] (Rec: 07/10/25 09:29 [facility] [id number]) Orientation Orientation/Cognition Level of Alertness Alert Orientation Name,Age,Place,Situation Gross Range of Motion Upper Extremity ROM Assessment Within Functional Limits Lower Extremity ROM Assessment Within Functional Limits Strength Upper Extremity Strength Assessment Within Functional Limits Lower Extremity Strength Assessment Within Functional Limits Coordination Assessment Gross Coordination Gross Coordination WNL M6 PT-IP Treatment Start: 07/09/25 16:21 Freq: NEEDED Status: Active Protocol: Document 07/11/25 15:50 AB (Rec: 07/11/25 17:45 AB [id number]) Physical Therapy Treatment Education Education Provided Safety M7 PT-IP Assessment and Plan Start: 07/09/25 16:21 Freq: NEEDED Status: Active Protocol: Document 07/11/25 15:50 [facility] (Rec: 07/11/25 17:45 [facility] [id number]) PT Summary Assessment and Plan Potential Rehabilitation Fair Potential Summary Impairments Pain,ROM,Strength,Balance,Coordination,Sensation,Tone, Cognition,Bed Mobility,Transfers,Gait,Activity Tolerance Progress Towards Slow Progress due to Activity Tolerance Goals Assessment Summary pt requiring CGA with mobility using FWW. spouse stated that she can assist pt. pt continues to present with decrease activity tolerance. pt wants to go home and will need HHPT to improve overall strength and independence. Goals Bed Mobility Goal Independent Transfer Goal Independent,Front Wheeled Walker Gait Goal Independent,Front Wheel Walker Gait Distance 100 Other Goals up/down 2 platform steps using FWW SBA Days to Meet Goals 10 Frequency of Treatment Frequency Of Once a Day Treatment Treatment Plan Physical Therapy Bed Mobility Training,Transfer Training,Gait Training, Treatment Plan Therapeutic Exercise,Discharge Planning Recommendations To Nursing Amount of Assist 1 Person Assist Needed Discharge Recommendations PT Discharge Home with 20/04 Assist Available,Home Health Recommendations Equipment Needed for FWW Home Before Discharge Transportation Needs Private Vehicle at Discharge - PT assist 1
--- NOTE | 2025-07-11 18:15 | PC.NURSE ---
Day shift: Pt A&Ox4, steady on feet with FWW. Agreeable to catheter removal and straight cath plan, to continue with routine at home. Pt performed hand hygiene, cleaned scotty-area appropriately, and self-cathed with proper clean technique with home catheter supplies.
[2025-07-11] MEDS: MELATONIN 3 MG TABLET 6 MG PO (20:10)
[2025-07-12] VITALS (18 sets, daily range): BP systolic 117–132; BP diastolic 70; PULSE 53–64; RESP 12–23; O2SAT 90–97
[2025-07-12] MEDS: ATORVASTATIN 20 MG TABLET 40 MG PO (08:33)
[2025-07-12] MEDS: MULTIVITAMIN 1 TABLET 1 TAB PO (08:33)
[2025-07-12] MEDS: ASPIRIN EC 81 MG TABLET PO (08:33)
[2025-07-12] MEDS: SENNOSIDES 8.6 MG TABLET 17.2 MG PO (08:33)
[2025-07-12] MEDS: PANTOPRAZOLE DR 40 MG TABLET PO (08:34)
[2025-07-12] MEDS: LEVOTHYROXINE 112 MCG TABLET PO (08:34)
[2025-07-12] MEDS: TAMSULOSIN 0.4 MG CAPSULE 0.8 MG PO (08:34)
[2025-07-12] MEDS: ENOXAPARIN 40 MG/0.4 ML SYRINGE SUBCUT (08:34)
[2025-07-12] MEDS: CHOLECALCIFEROL (VITAMIN D3) 5,000 UNIT TABLET 5000 UNIT PO (08:34)
[2025-07-12] MEDS: SODIUM CHLORIDE 0.9% FLUSH 10 ML IV (08:35)
--- NOTE | 2025-07-12 09:23 | PM.DS.1 ---
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 He is currently being treated for his metastatic prostate cancer with oral chemotherapy and low-dose prednisone. He states he is now chronically very fatigued. However, he notes this morning after sliding to the floor he was unable to get back up which is unusual for him. He did have 1 episode of nausea and vomiting as well. He has not felt as though he was emptying his bladder which she notes is also somewhat unusual. He typically self caths twice daily and urinate throughout the day. EMS was contacted when he was unable to get back up and they did lift him back up and recommended he present to the ER. He declined at that time, but his son did ultimately convinced him to come to the ER to be assessed. In the emergency department, he was afebrile with fairly normal vital signs. He did have somewhat low blood pressures ranging from 96/56 to 118/56. His white blood cell count was normal. Hemoglobin 8.8, hematocrit 25.3, MCV 127.2, platelets 148. Sodium was 131, potassium 3.2, chloride 102, bicarb 23, BUN 21, creatinine 0.72. Initial lactate was 2.9. After IV fluids it came down to 2.0. BNP was 2110. Troponins were normal x2. UA revealed trace protein trace ketones 2+ occult blood positive nitrites and many bacteria. COVID, RSV, and flu a and B were negative. Urine and blood cultures are pending at this time. Previous urine cultures from September of this year were notable for colonization with Staph epidermidis and Enterococcus. Discharge Providers Provider Date of admission: 07/09/25 14:39 Discharge Date: 07/12/25 Primary care physician: Maura Young DO Consults: 07/09/25 15:07 Consult to Discharge Planning Routine Comment: Consult to Physical Therapy Evaluate & Treat Comment: Physician Instructions: Evaluate and Treat 07/09/25 16:14 Consult to Pharmacy Routine Comment: patient on daily chemo treatment 07/10/25 15:41 Consult to Home Health Routine Comment: UTI, constipation, prostate CA Reason For Exam: Set up RN/PT/[employer] for dc to home Discharge provider: Nabeel Paniagua MD Summary Hospital Course Discharge Diagnosis: 1. Urinary tract infection in a patient with known urinary retention, active. Culture indicates Staph epidermis, antibiotics were changed. He does in and out catheter at home. 2. Constipation, improved. A CT scan was done in the emergency department which did reveal a significant stool burden. 3. Metastatic prostate cancer, active. He is presently treated with abiraterone, olaparib and prednisone daily. He states he also receives Lupron every 3 months. Will hold his oral chemo given his acute infection. He is only on 5 mg of prednisone. Will discontinue that for now as well 4. Pathologic L2 vertebral body fracture, active. He has not complaining of any pain at this time. He does have scattered sclerotic osseous metastases 5. History of ampullary adenocarcinoma, active. He has had a prior Whipple procedure. Continue pancreatic enzymes. 6. Left lower lobe pulmonary nodule, active. This is new and noted on today's abdominal and pelvic CT. He should have outpatient follow-up. 7. Generalized weakness, active. Will have PT and OT assess and make recommendations Hospital Course: He was admitted with weakness and urinary tract infection clinically. His initial antibiotics were ceftriaxone, he however grew out staph epidermis which appeared to be more sensitive to levofloxacin. Antibiotics were changed on the and he had dramatic improvement of general malaise and energy over the next 24 hours. He requested discharge home. Recommendations for 14 days of antibiotics for his use of in and out catheter at home. PCP follow up next week is recommended he agrees to help arrange this. Status at Discharge Cognitive/behavioral status at discharge: oriented Functional status at discharge: uses cane/walker Overall status at discharge: patient is back to baseline Time Spent with Patient Time spent: Greater than 30 minutes Exam Vital Signs (past 8 hours): - 07/12/25 01:30 07/12/25 02:00 07/12/25 02:30 Pulse Rate 60 60 59 L Respiratory Rate 19 12 15 Blood Pressure Pulse Oximetry 07/12/25 03:00 07/12/25 05:30 07/12/25 05:31 Pulse Rate 57 L 64 63 Respiratory Rate 17 23 Blood Pressure Pulse Oximetry 92 90 L 07/12/25 05:31 07/12/25 06:00 07/12/25 06:30 Pulse Rate 55 L 57 L Respiratory Rate 13 15 Blood Pressure 132/70 Pulse Oximetry Oxygen Delivery Method Room Air Oxygen Flow Rate 0 Narrative Exam Narrative: NAD, alert and oriented. Fluent speech. Lungs are clear, normal rate and effort. Heart is regular, no murmur gallop or rub. Abdomen is soft, non distended. Extremities are free of edema. Objective Imaging Multiple studies:: Radiologist's impression: Head CT: No acute intracranial pathology. Chest x-ray: No acute cardiopulmonary abnormality is seen. Abdomen pelvis CT: Moderate colonic stool load. Colonic diverticulosis without evidence of diverticulitis. Stable pathologic fracture of the L2 vertebral body without endplate retropulsion. Scattered sclerotic osseous metastasis. Prior Whipple. Pancreatic ductal irregularity and atrophy is similar to prior, and likely a sequela of chronic parenchymal disease. Indeterminate left lower lobe solid pulmonary nodule measuring 4-5 mm, new from prior. 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) KEVIN (obstructive sleep apnea) BPH (benign prostatic hyperplasia) (~2013) Adult hypothyroidism Surgical History Anesthesia H/O Whipple procedure H/O abdominal surgery (~10/2020) History of cholecystectomy History of tonsillectomy (~194) Family History Sister Breast cancer in female Dementia Mother Breast cancer in female Unknown Breast cancer in female Father CVA (cerebral vascular accident) Hypertension Brother History of heart disease Social History household members: spouse Smoking Status: Never smoker alcohol intake: never substance use type: does not use Discharge Assessment & Plan Assessment and Plan Assessment: 1. UTI, improved. [N], the patient has documentation of a left ventricle ejection fracture less than or equal to 40%, or moderately or severely reduced left ventricle systolic function. [N], the patient has a history of heart transplant or left ventricular assist device (LVAD). [N], the patient was prescribed an KAILEY inhibitor at discharge or is already being taken. [N], the patient was prescribed Metoprolol succinate, bisoprolol, or carvedilol at discharge. Plan of Treatment: Discharge home, complete a 14 day course of levofloxacin 500 q.d.. Discharge Plan Discharge Plan Patient Disposition: Home Provider Discharge Comment: Stable for discharge home. Oral antibiotics and close follow up next week with PCP. Discharge orders & Medications Prescriptions: New levofloxacin 500 mg tablet 500 mg PO DAILY Qty: 12 0RF Continued Lynparza 150 mg tablet 300 mg PO BID vitamin E mixed 400 unit capsule 400 unit PO DAILY hydrocortisone [Cortisone (hydrocortisone)] 1 % cream 1 applic topical TID PRN (Reason: itching) Qty: 28.35 0RF abiraterone 250 mg tablet 500 mg PO DAILY Rx Instructions: must be taken on empty stomach, at least 1 hr before or 2 hrs after a meal/food prednisone 5 mg tablet 5 mg PO DAILY MULTIVITAMIN/MINERALS (Thera M Plus Tablet) 1 tab PO Q DAY Qty: 0 atorvastatin 40 mg tablet 40 mg PO DAILY Qty: 90 1RF levothyroxine 112 mcg tablet 112 mcg PO DAILY ascorbic acid (vitamin C) [Vitamin C] 500 mg Tablet 500 mg PO DAILY zinc 50 mg Capsule 50 mg PO DAILY cholecalciferol (vitamin D3) [Vitamin D3] 125 mcg (5,000 unit) Tablet 125 mcg PO DAILY Creon 24,000-76,000 -120,000 unit Capsule,Delayed Release(Dr/Ec) 2 cap PO TID PRN (Reason: Digestion) aspirin 81 mg Tablet 81 mg PO DAILY lysine 500 mg Capsule 1,500 mg PO DAILY PRN (Reason: Cold Sores) melatonin 5 mg Tablet 5 mg PO BEDTIME PRN (Reason: Sleep) tamsulosin 0.4 mg capsule 0.8 mg PO DAILY Follow up/Referrals: Maura Young DO [Primary Care Provider, Family Practice] Discharge Health Status Multidrug resistant organism: No MDRO Diet/Activity/Treatments Diet: Regular Visit Report/Discharge Packet Instructions: DI for Urinary Tract Infection (UTI) Stand Alone Forms: Patient Portal/API Discharge Data Primary Care Provider: Maura Young
--- NOTE | 2025-07-12 10:52 | CM.DPC ---
DCP Cont. Reviewed EMR and team rounds for pt's medical status and updates. Pt has been medically cleared for home d/c. His family is here to transport him back home. No further CM d/c needs identified at this time. Faxed [facility] the d/c summary and orders for HH.
== END 2025-07-12 11:07 | disposition home health service (06) | DRG 698 ==
LOC: ED 14:34 → AC 14:56 → ICU 07-10 07:20 → AC 07-10 11:08
PROVIDERS: Internal Medicine; Admitting Provider Family Medicine; Emergency Provider Family Medicine; PCP Family Medicine; Referring Provider Family Medicine; Visit Provider Family Medicine
DX: T83.518A Infection and inflammatory reaction due to other urinary catheter, initial encounter (principal); A41.9 Sepsis, unspecified organism; R65.21 Severe sepsis with septic shock; N39.0 Urinary tract infection, site not specified; C79.51 Secondary malignant neoplasm of bone; C61 Malignant neoplasm of prostate; K59.00 Constipation, unspecified; R53.1 Weakness; R91.1 Solitary pulmonary nodule; B95.7 Other staphylococcus as the cause of diseases classified elsewhere; E03.9 Hypothyroidism, unspecified; N40.0 Benign prostatic hyperplasia without lower urinary tract symptoms; M84.58XD Pathological fracture in neoplastic disease, other specified site, subsequent encounter for fracture with routine healing; Y73.1 Therapeutic (nonsurgical) and rehabilitative gastroenterology and urology devices associated with adverse incidents; Z86.73 Personal history of transient ischemic attack (TIA), and cerebral infarction without residual deficits; Z79.52 Long term (current) use of systemic steroids; Z85.09 Personal history of malignant neoplasm of other digestive organs; Z90.411 Acquired partial absence of pancreas; Z79.890 Hormone replacement therapy
CPT/HCPCS: 36415; 51702; 70450; 71045; 74177; 80048; 80053; 81001; 82553; 83605; 83690; 83735; 83880; 84484; 85007; 85025; 87040; 87077; 87086; 87186; 87637; 93005; 93010; 96361; 96365; 97116; 97161; 99285; A9270; J0696; J1650; J1956; J7030; J7040; J7050; J7120; Q9967

== ENCOUNTER → 2025-07-24 13:06 | Outpatient (CLI) | payer MEDICARE, SELFPAY ==
[2025-07-09 15:52] VITALS: BMI 21.7
[2025-07-24 13:41] LABS: Add Manual Diff / Slide Review NO; Hematocrit 28.9 % (41-53); Hemoglobin 10.3 g/dL (13.5-17.5); Lymphocytes Absolute Auto 600 /uL (1100-4500); Mean Corpuscular HGB Conc 35.7 % (30-36); Mean Corpuscular Hemoglobin 45.3 PG (26-34); Mean Corpuscular Volume 127.0 fL (80-100); Platelet Count 300 X10^3/uL (150-400)
[2025-07-24 13:51] LABS: Alanine Aminotransferase 57 IU/L (<50); Albumin 4.5 g/dL (3.5-5.0); Albumin Globulin Ratio 2.0 (1.0-2.8); Alkaline Phosphatase 86 U/L (38-126); Blood Urea Nitrogen 17 mg/dL (9-20); Calcium 9.3 mg/dL (8.4-10.2); Carbon Dioxide 23 mmol/L (22-32); Chloride 101 mmol/L (98-107); Estimated Glomerular Filt Rate > 60 mL/min (>60); Globulin 2.3 g/dL (1.7-4.1); Glucose 101 mg/dL (70-99); HEMOLYSIS < 15 (0-50); Potassium 3.9 mmol/L (3.4-5.1); Sodium 134 mmol/L (137-145); Total Protein 6.8 g/dL (6.3-8.2)
[2025-07-24 14:07] LABS: Anisocytosis 1+; Macrocytosis 3+; Poikilocytosis 1+; Schistocytes 1+
[2025-07-24 14:21] LABS: Thyroid Stimulating Hormone 27.4 uIU/mL (0.47-4.68)
== END ==
PROVIDERS: PCP Family Medicine; Referring Provider Family Medicine; Visit Provider Family Medicine
DX: R53.1 Weakness (principal); Z87.440 Personal history of urinary (tract) infections; Z78.9 Other specified health status; R35.1 Nocturia; C61 Malignant neoplasm of prostate
CPT/HCPCS: 36415; 80053; 84443; 85025

== ENCOUNTER → 2025-08-08 15:24 | Outpatient (CLI) | payer OTHER, SELFPAY ==
[2025-07-09 15:52] VITALS: BMI 21.7
--- NOTE | 2025-08-08 15:25 | DI.CT.S_ITS ---
PROCEDURE: CT CHEST W CON
== END ==
PROVIDERS: PCP Family Medicine; Referring Provider Family Medicine; Visit Provider Family Medicine
DX: C61 Malignant neoplasm of prostate (principal); C24.1 Malignant neoplasm of ampulla of Vater; C79.51 Secondary malignant neoplasm of bone; I71.21 Aneurysm of the ascending aorta, without rupture; R91.1 Solitary pulmonary nodule; J98.11 Atelectasis; D64.9 Anemia, unspecified; R53.82 Chronic fatigue, unspecified; R53.1 Weakness
CPT/HCPCS: 71260; Q9967

== ENCOUNTER → 2025-09-06 15:47 | Outpatient (CLI) | payer OTHER, SELFPAY ==
[2025-07-09 15:52] VITALS: BMI 21.7
[2025-09-06 16:18] LABS: Hematocrit 26.8 % (41-53); Hemoglobin 9.5 g/dL (13.5-17.5); Mean Corpuscular HGB Conc 35.6 % (30-36); Mean Corpuscular Hemoglobin 44.6 PG (26-34); Mean Corpuscular Volume 125.3 fL (80-100); Platelet Count 172 X10^3/uL (150-400)
[2025-09-06 17:30] LABS: Thyroid Stimulating Hormone 5.69 uIU/mL (0.47-4.68)
[2025-09-06 18:04] LABS: Lymphocytes Percent Manual 23.0 % (25-45); Monocytes Percent Manual 5.0 % (2-11); Neutrophils Absolute Manual 2088 /uL (3000-5900); Segmented Neutrophils Percent 72.0 % (38-70); Total Cells Counted 100
[2025-09-06 18:05] LABS: Macrocytosis 3+
[2025-09-06 18:06] LABS: Schistocytes 1+
== END ==
PROVIDERS: PCP Family Medicine; Referring Provider Family Medicine; Visit Provider Family Medicine
DX: C79.9 Secondary malignant neoplasm of unspecified site (principal); R53.1 Weakness; E03.9 Hypothyroidism, unspecified
CPT/HCPCS: 36415; 82652; 84443; 85025